=== PATIENT | female | born 1960 | race Caucasian/White ===

== ENCOUNTER 2023-12-26 23:54 | Inpatient (IN) | payer OTHER, SELFPAY ==
[2023-12-26] VITALS (7 sets, daily range): BP systolic 89–142; BP diastolic 11–94; BMI 20.7
--- NOTE | 2023-12-26 16:41 | ED TECH ---
This PCT tried to obtain blood work due to pt pulling away arm while needle was inserted.
No labs obtained in triage.
--- NOTE | 2023-12-26 19:52 | ED.GENMED ---
History of Present Illness
General
Chief Complaint: Alcohol Problem
Source: patient
Exam Limitations: none
Time Seen by Provider: 12/26/23 18:15
Nursing documentation reviewed up to this point in time: agreed with
Travel History
Have you had any contact with someone who has COVID-19?: No
Do you have any symptoms of coronavirus? Fever > 100 degrees, chills, cough, shortness of breath, sore throat, loss of taste or smell, muscle aches, or headache?: No
History of Present Illness
History of Present Illness:
Patient with history of chronic alcoholism, anxiety, and gastroparesis, presents ED secondary to recurrent nausea and vomiting, along with upper abdominal pain. Unfortunately, patient states that her anxiety has been worse recently, causing her to
drink more, which has caused more pain. Denies diarrhea. Denies chest pain/sob. Denies trauma.
Past History
Past History
ED Past Medical History: Asthma, Cancer (Breast cancer, diagnosed September 2013 with lumpectomy), COPD, GERD, HTN, Psychiatric (Anxiety, Depression) and Other (Pneumonia, Immune problem, diverticulosis, gastritis, GI bleed, osteoporosis, anemia,
migraines, osteoporosis, kyphosis, C-diff)
ED Past Surgical History: Gynecological (Breast lumpectomy September 2013), Orthopedic (Left wrist distal radius fracture repair November 2013, Back surgery) and Other (Cataracts, hiatal hernia surgery)
Social History
Tobacco: Former smoker
Alcohol: None
Drug: None
Personal:
Living: with family
Employment: Employed
Family History
Family History: Other (Noncontributory)
Review of Systems
Review of Systems
Allergies reviewed?: Yes
All Other Systems: ROS reviewed and negative except as documented in HPI and ROS
Constitutional: Reports no symptoms; Denies fever
EENT: Reports no symptoms
Respiratory: Reports no symptoms
Cardiac: Reports no symptoms
ABD/GI: Reports abdominal pain, nausea, vomiting and diarrhea
Musculoskeletal: Reports no symptoms
Skin: Reports no symptoms
Neurological: Reports no symptoms
Phy Exam
Physical Exam
Physical Exam:
Physical Exam
General: mild distress, not acutely ill. afebrile.
Head: nc/at. eomi
Neck: supple. no meningeal signs.
Heart: s1/s2 regular rate and rhythm, no murmur. equal radial pulses.
Lungs: no acute respiratory distress. clear bilaterally
Abdomen: normal bowel sounds. no distention. mild epigastric tenderness to palpation. rectal exam (Janet RN, at bedside): brown, heme negative
Neuro: alert and oriented. no focal neurological deficits
Skin: no rash
Psychiatric: well kept. interactive and cooperative
Extremities: no edema. no calf tenderness.
Scores
Withdrawal Assessment of Alcohol
Withdrawal Assessment Completed?: Not applicable
Course
Orders/Labs/Results
Orders:
Orders
12/26/23 16:15
Electrocardiogram (*1) Urgent
Reason for Study: Syncope
EKG- Treatment ONCE
12/26/23 18:16
Add On- LAB Urgent
Tests Added?: magnesium, alcohol level
12/26/23 18:58
0.9% Sodium Chloride 1000 ml [Nss] 1,000 ml IV BOLUS
Lorazepam [Ativan] 1 mg IV NOW STA
Ondansetron Injectable [Zofran] 4 mg IV NOW STA
Pantoprazole [Protonix IV] 40 mg IV NOW STA
12/26/23 20:06
Alcohol Urgent
Basic Metabolic Panel Urgent
Complete Blood Count/With Diff Urgent
Ferritin Urgent
Comment: ADD ON
Lipase Urgent
12/26/23 20:42
Add On- LAB Urgent
Tests Added?: iron, ferritin, tibc
12/26/23 22:02
Iron Routine
Comment: COLLECT. SPECIMEN IN LAB IS HEMOLYZED
Total Iron Binding Routine
12/26/23 23:40
Admit/Transfer Patient As Directed
Co-Sign Provider:
Level of Care: Inpatient admission
Assign to:: Medical/Surgical
Physician / Group: [email or web address]
Diagnosis: acute gastritis, ETOH use disorder
Reason for Hospitalization: acute gastritis, ETOH use disorder
Expected length of stay greater than two midnights?: Yes
ELOS- Estimated Length of Stay in days: 3
I certify the patient meets the requirements for IP care: Yes
12/26/23 23:41
Code Status As Directed
Resuscitation Status: Full Code
12/26/23 23:56
Magnesium Urgent
Potassium Urgent
12/27/23 01:15
0.9% Sodium Chloride 1000 ml [Nss] 1,000 ml IV 100 mls/hr
0.9% Sodium Chloride [Nss (Preservative Free)] See Protocol IV PRN PRN
FOLic ACID [Folvite] 1 mg 0.9% Sodium Chloride 50 ml [Nss] 50 ml IV DAILYPRN
Lorazepam [Ativan] 1 mg IV Q1HPRN PRN
Lorazepam [Ativan] 1 mg PO Q2HPRN PRN
Lorazepam [Ativan] 2 mg IV Q1HPRN PRN
Metoclopramide [Reglan] 10 mg IV Q6HPRN PRN
12/27/23 01:15
Case Management Consult Once
Case Management Consult: Other
Comment: Substance abuse counseling
Activity As Directed
Activity Level: With Assistance
Intake/ Output As Directed
Frequency: Per unit guidelines
MSAS SCORE As Directed
MSAS Score 0-4: Repeat MSAS every 2 hours until 0-4 for three consecutive assessments, then every 4 hours x 48
hours.
MSAS Score 5-7: For MILD withdrawl symptoms. Repeat MSAS and RASS every 2 hours
MSAS Score 8-11: For MODERATE withdrawal symptoms. Repeat MSAS and RASS every 1 hour. Consider ICU or IMU
level of care.
MSAS Score > 11: For SEVERE withdrawal symptoms. Repeat MSAS and RASS every 1 hour. Notify provider, consider
ICU level of care.
MSAS Additional Instructions: If no improvement or no decrease in score from severe to moderate within 12
hours, consult psychiatry
MSAS Notify Provider: Notify provider if patient requires more than 10 mg of Lorazepam in eight hour period.
Pneumatic Compression Sleeves As Directed
Type: Knee high
Vital Signs As Directed
Frequency: Per unit guidelines
DX Deep Vein Thrombosis Video Routine
12/27/23 Breakfast
Clear Liquid
At Your Request: Full Participation
Comment: ADAT
12/27/23 08:00
FOLic ACID [Folvite] 1 mg PO DAILY
Lisinopril [Zestril] 20 mg PO DAILY
Thiamine Injection 200 mg IV Q12
12/27/23 08:40
Basic Metabolic Panel IN AM
Complete Blood Count/No Diff IN AM
12/27/23 09:00
DIETARY CONSULT Routine
Reason for Consult: Nutrition support, possible refeeding guidelines
12/30/23 08:00
Thiamine HCl [Vitamin B1] 100 mg PO BID
Abnormal Lab Results
12/26/23 12/26/23
20:06 22:02
RBC 2.91 L 10^6/uL
(4.20-5.40)
Hgb 9.6 L g/dL
(12.0-16.0)
Hct 27.3 L %
(37.0-47.0)
MCH 33.0 H pg
(27.0-31.0)
RDW 16.4 H %
(11.5-14.5)
Carbon Dioxide 18 L mmol/L
(22-30)
BUN 45 H mg/dl
(7-17)
Creatinine 1.1 H mg/dL
(0.6-1.0)
Glucose 109 H mg/dl
(70-99)
TIBC 182 L ug/dl
(265-497)
12/26/23 20:06
12/26/23 20:06
Vital Signs
Initial and Last Documented VS:
Initial Vital Signs
Temp Pulse Resp BP Pulse Ox
99.1 F 96 18 98/63 96
12/26/23 16:12 12/26/23 16:12 12/26/23 16:12 12/26/23 16:12 12/26/23 16:12
Last Documented Vital Signs
Temp Pulse Resp BP Pulse Ox
98.5 F 72 16 131/84 97
12/27/23 07:10 12/27/23 07:10 12/27/23 07:10 12/27/23 07:10 12/27/23 07:10
MDM/Problems Addressed
MDM/Problems Addressed:
H/H noted, along with elevated BUN/Cr ratio, concerning for likely dehydration from ongoing alcohol use and lack of oral intake. Pt with tremor noted, concerning for potential development of DTs. Pt will be admitted for further evaluation and
treatment.
*Critical Care Note
Total Time (30-74mins, 75-104mins- exclusive of procedures): Not Applicable
ED Attending Note
-
Portions of this chart may have been created with voice recognition software.� Occasional wrong word or��sound alike� substitutions may have occurred due to the inherent limitations of voice recognition software.
Discharge Plan
Departure
Patient Disposition: Admit
Date of Disposition: 12/26/23
Time of Disposition: 23:19
Admit to: Telemetry
Presentation/result/management discussed w/ accepting MD/DO: Hospitalist
Discharge Problem:
Dehydration, Anemia, Gastritis, Alcohol abuse
Interventions
Interventions:
*Risk Screen - Suicide Last Done: 12/26/23 16:12
*General Assessment Last Done: 12/26/23 16:12
*Neglect/Abuse Screening Last Done: 12/26/23 16:12
ED- Fall Risk Assessment Last Done: 12/26/23 18:48
*ED COVID-19 Vaccine History Last Done: 12/26/23 16:12
*Nursing Disposition Last Done: 12/27/23 01:05
ED- Neurological Assessment Last Done: 12/26/23 18:48
ED-Psychological Assessment Last Done: 12/26/23 18:48
Discharge Date and Time
Discharge Date/Time: 12/27/23 01:06
[2023-12-26] MEDS: NSS 1000 IV (20:09)
[2023-12-26] MEDS: PROTONIX IV 40 MG IV (20:09)
[2023-12-26] MEDS: ZOFRAN 4 MG IV (20:09)
[2023-12-26] MEDS: ATIVAN 1 MG IV (20:09)
[2023-12-26 20:10] LABS: % Basophils 1.2 % (0-2); % Eosinophils 2.3 % (0-6); % Immature Granulocytes 0.2 % (0-0.5); % Lymphocytes 33.1 % (20.5-51.1); % Monocytes 6.4 % (1.7-9.3); % Neutrophils 56.8 % (42.2-75.2); Absolute Basophils 0.1 10^3/uL (0-0.2); Absolute Eosinophils 0.2 10^3/uL (0-0.7); Absolute Lymphocytes 2.2 10^3/uL (1.2-3.4); Absolute Monocytes 0.4 10^3/uL (0.1-0.6); Absolute Neutrophils 3.8 10^3/uL (1.4-6.5); Hematocrit 27.3 % (37.0-47.0); Hemoglobin 9.6 g/dL (12.0-16.0); Mean Corp Hgb Conc. 35.2 g/dL (33.0-37.0); Mean Corpuscular Volume 93.8 fL (81.0-99.0); Mean Platelet Volume 9.6 fL (7.4-10.4); Nucleated Red Blood Cells % 0 %; Platelet Count 220 10^3/uL (130-400); Red Blood Cell Count 2.91 10^6/uL (4.20-5.40); Red Cell Dist. Width 16.4 % (11.5-14.5); White Blood Cell Count 6.6 10^3/uL (4.8-10.8)
[2023-12-26 20:29] LABS: Blood Urea Nitrogen 45 mg/dl (7-17); Calcium 9.3 mg/dl (8.4-10.2); Carbon Dioxide 18 mmol/L (22-30); Chloride 107 mmol/L (98-107); Estimated Creatinine Clearance 50 ml/min; Glucose 109 mg/dl (70-99); Sodium 138 mmol/L (135-145); eGFR 56.46
[2023-12-26 20:35] LABS: Lipase 126 U/L (23-300)
[2023-12-26 20:36] LABS: Alcohol None Detected
[2023-12-26 22:20] LABS: Iron 73 ug/dl (37-170)
[2023-12-26 22:30] LABS: Percent Saturation 40 % (20-50); Total Iron Binding Capacity 182 ug/dl (265-497)
--- NOTE | 2023-12-26 23:35 | HPS.HSE ---
Family Physician
-
Family Physician: James Neal
Chief Complaint
-
N & V
History of Present Illness
63F H ETOH use disorder, gastroparesis, anxiety evalauation at ER for recurrent nausea and vomiting, along with upper abdominal pain. Unfortunately, patient states that her anxiety has been worse recently, causing her to drink more, which has
caused more pain.
ROS
Denies diarrhea. Denies chest pain/sob. Denies trauma.
Medical History
Past Medical History
Past Medical History: Reports Other
Additional Past Medical History:
Asthma, Cancer (Breast cancer, diagnosed September 2013 with lumpectomy), COPD, GERD, HTN, Psychiatric (Anxiety, Depression) and Other (Pneumonia, Immune problem, diverticulosis, gastritis, GI bleed, osteoporosis, anemia, migraines, osteoporosis,
kyphosis, C-diff)
Past Surgical History: Reports Other
Additional Past Surgical History:
Gynecological (Breast lumpectomy September 2013), Orthopedic (Left wrist distal radius fracture repair November 2013, Back surgery) and Other (Cataracts, hiatal hernia surgery)
Social History
Tobacco: Former Smoker
Alcohol: Daily
Drug: None
Family History
Family History: Not pertinent
Allergies / Home Medications
Allergies reflects when Allergies were last updated in [employer].
Home Medications with original date entered in [employer]
Allergy/Medication List:
Allergies
Allergy/AdvReac Type Severity Reaction Status Date / Time
No Known Allergies Allergy Verified 06/11/23 09:08
Home Medications
escitalopram oxalate 20 mg tablet 20 mg PO DAILY Depression 09/30/18
immun glob G 10 gram/50 mL(20 %)-pro-IgA 0-50 mcg/mL subcutaneous soln (Hizentra) 10 gm SC SA common variable immunodeficiency 09/30/18
omeprazole 20 mg capsule,delayed release 20 mg PO BID #60 caps 06/25/22
cholecalciferol (vitamin D3) 50 mcg (2,000 unit) tablet 2,000 units PO DAILY #30 tabs 03/27/23
metoclopramide HCl 10 mg tablet 10 mg PO ACHS #120 tabs 03/27/23
albuterol sulfate 90 mcg/actuation aerosol inhaler (Proventil HFA) 1 puff inhalation R Q4HPRN PRN sob/wheezing 05/17/23
ondansetron 4 mg disintegrating tablet 4 mg PO Q8HPRN PRN nausea/vomiting 05/17/23
acetaminophen 325 mg tablet (Tylenol) 650 mg PO Q4HPRN PRN mild pain 06/11/23
therapeutic multivitamin 1 tab PO DAILY Supplement 06/11/23
lisinopril 20 mg tablet 20 mg PO DAILY #30 tabs 06/14/23
mirtazapine 15 mg disintegrating tablet 15 mg PO HS #30 tabs 06/14/23
trazodone 100 mg tablet 100 mg PO HS #30 tabs 06/14/23
Review of Systems
-
Constitutional: Reports No Symptoms
EENT: Reports No Symptoms
Respiratory: Reports No Symptoms
Cardiac: Reports No Symptoms
Abdomen/GI: Reports See HPI
: Reports No Symptoms
Musculoskeletal: Reports No Symptoms
Skin: Reports No Symptoms
Neurological: Reports No Symptoms
Endocrine: Reports No Symptoms
Hematologic/Lymphatic: Reports No Symptoms
Psych: Reports No Symptoms
Physical Exam
Vital Signs
Vital Signs
Temp Pulse Resp BP Pulse Ox
99.1 F 79 12 120/78 96
12/26/23 16:12 12/26/23 23:00 12/26/23 23:00 12/26/23 23:00 12/26/23 22:45
Physical Exam
General: Other (see below )
Laboratory Results
-
12/26/23 20:06
Laboratory Results
Total Bilirubin Cancelled 12/26/23 20:06
AST Cancelled 12/26/23 20:06
ALT Cancelled 12/26/23 20:06
Alkaline Phosphatase Cancelled 12/26/23 20:06
Lipase 126 U/L (23-300) 12/26/23 20:06
Data Reviewed
-
Lab Data: Labs Reviewed by me
Old Records: Reviewed
Impression/Plan
-
Reviewed VS: T 99.1 HR 80 BP 120/80
PE
Gen: mild distress
HEENT: anicteric
Neck: supple
Lungs: CTA
Cor: S1 S2 , RRR , no mumur
Abdomen: soft abdomen , benign
STENOTYPE OPERATOR: AAO3 NFND
MS: no edema
Psych: Normal mood and affect.
Data
Hgb 9.6- baseline 12-13
Na 138
K - hemolyzed
CO2 18
BUN 45
Cr 1.1
EKG
SINUS RHYTHM WITH SHORT ME
NONSPECIFIC ST ABNORMALITY
ABNORMAL ECG
WHEN COMPARED WITH ECG OF 11-JUN-2023 09:44,
ME INTERVAL HAS DECREASED
Confirmed by PHILL JHA, MAICO ([id number]) on 12/26/2023 4:37:43 PM
Last hospitalist admission: 06/11/23 - 06/14/23
P DXS: Intractable nausea and vomiting
S DXs: Essential hypertension
ASSESSMENT & PLAN
Intractable N/V DDX: ETOH asso. gastritis, Gastroparesis flare of uncertain etiolgy
HX hiatal hernia
Prior extensive evaluations in the health record by GI again and also by surgery.
- Supported with IVFs, Reglan
- cont Reglan
- cont IV PPI
ETOH use disorder
Recently 1 measure ( ? ) of Vodka daily for last 2weeks
- MSAS protocol
HX Anxiety
- on Remeron
Essential HTN:
- cont. Lisinopril
DVT Px: LMWH
Code: Full code
IP MS
[2023-12-27] VITALS: BP 114/78
[2023-12-27 00:25] LABS: Potassium 3.9 mmol/L (3.5-5.1)
[2023-12-27 01:08] VITALS: BMI 19.7
[2023-12-27 01:14] VITALS: BP 132/84
[2023-12-27] MEDS: NSS 1000 IV ×2 (02:05→14:11)
[2023-12-27] MEDS: ATIVAN 1 MG IV (02:41)
[2023-12-27] MEDS: NSS (PRESERVATIVE FREE) 0.5 ML IV (02:42)
[2023-12-27] MEDS: REGLAN 10 MG IV ×2 (03:19→11:01)
--- NOTE | 2023-12-27 05:10 | PTCARENOTE ---
Patient admitted to room 408-1, ambulatory from stretcher to bed, gait steady. Patient awake and alert, oriented x3. Complains of upper middle abdominal pain of a '4'. Patient on MSAS scoring a '1'. It is to late at this time for patients night
time meds, she asked for a dose of ativan, said it really helped her feel less anxious when she was given it in the ED. SKIMMER SCOOP OPERATOR notified and ordered one dose of ativan 1mg IV. Patient instructed to ring prior to ambulating, she verbalized understanding.
[2023-12-27 07:10] VITALS: BP 131/84
[2023-12-27] MEDS: ZESTRIL 20 MG PO (09:01)
[2023-12-27] MEDS: THIAMINE INJECTION 200 MG IV ×2 (09:02→20:48)
[2023-12-27] MEDS: FOLVITE 1 MG PO (09:02)
[2023-12-27] MEDS: PROTONIX 20 MG PO (09:02)
[2023-12-27] MEDS: PROZAC 30 MG PO (09:02)
[2023-12-27 09:30] LABS: Hematocrit 28.6 % (37.0-47.0); Hemoglobin 9.5 g/dL (12.0-16.0); Mean Corp Hgb Conc. 33.2 g/dL (33.0-37.0); Mean Corpuscular Hgb 31.8 pg (27.0-31.0); Mean Corpuscular Volume 95.7 fL (81.0-99.0); Mean Platelet Volume 9.8 fL (7.4-10.4); Platelet Count 206 10^3/uL (130-400); Red Blood Cell Count 2.99 10^6/uL (4.20-5.40); White Blood Cell Count 4.9 10^3/uL (4.8-10.8)
[2023-12-27 09:57] LABS: Blood Urea Nitrogen 35 mg/dl (7-17); Calcium 8.8 mg/dl (8.4-10.2); Carbon Dioxide 24 mmol/L (22-30); Chloride 110 mmol/L (98-107); Estimated Creatinine Clearance 65 ml/min; Glucose 93 mg/dl (70-99); Potassium 4.3 mmol/L (3.5-5.1); Sodium 136 mmol/L (135-145); eGFR > 60.00
[2023-12-27 10:41] LABS: Hepatitis C Antibody Negative (Negative)
[2023-12-27] MEDS: TYLENOL 650 MG PO (11:03)
[2023-12-27 15:00] VITALS: BMI 19.7
--- NOTE | 2023-12-27 15:04 | W.PN.HOSP.TC ---
Today's Communication/Plan
-
Protonix IV twice a day
Continue with antiemetics
Continue with IV fluids
Advance diet as able.
Assessment / Plan
Assessment / Plan
Intractable nausea vomiting-patient also has associated abdominal pain-patient known to have gastroparesis which was managed well with the twice a day Zofran. The last 2 weeks things have changed as her food habits change and also she has been
taking alcohol every day. She is also taking care of her sick mother.
Suspect probably alcohol related and either gastritis or erosions. Doubt gastro harasses flareup.
Lipase normal. White count normal. Abdomen soft. Elevated BUN noted.
Symptomatic treatment with IV Protonix twice a day, antiemetics and IV fluids and follow.
HX� hiatal hernia
Prior extensive evaluations in the health record by GI again� and also by surgery.
- Supported with IVFs, - cont IV PPI
ETOH use disorder
Recently 1 measure ( ? )� of Vodka daily for last 2weeks
- MSAS protocol
HX Anxiety
- on Remeron
Essential HTN:
- cont.� Lisinopril
DVT Px: LMWH
Code: Full code
IP MS
Anticipated Discharge: 24 - 48 hours
Subjective/Interval History
-
Date of Service: December 27, 2023
Patient with history of gastroparesis which was managed with Zofran twice a day. She does not take Reglan anymore because of the side effect concern. In the last couple of weeks things have changed with regards to nausea. She was able to tolerate
diet without vomiting. She had also abdominal discomfort in epigastric area. She thinks it is because the food habit changes and also use of alcohol. She has been taking care for her sick mom in the last few weeks. She is taking 2 drinks a day
which is not usual for her. No major changes with stool habits.
Objective Data
-
Labs:
Laboratory Results
12/27/23
08:40
WBC 4.9
Hgb 9.5 L
Hct 28.6 L
Plt Count 206
Sodium 136
Potassium 4.3
Chloride 110 H
Carbon Dioxide 24
BUN 35 H
Creatinine 0.8
Glucose 93
Calcium 8.8
Vital Signs:
Vital Signs
Temp Pulse Resp BP Pulse Ox
98.5 F 72 16 131/84 97
12/27/23 07:10 12/27/23 07:10 12/27/23 07:10 12/27/23 07:10 12/27/23 07:10
I&O
12/26/23 12/27/23 12/28/23
06:59 06:59 06:59
Intake Total 500 / 500
Balance 500 / 500
Review of Systems
-
Constitutional: Denies Fever
Respiratory: Denies Trouble Breathing
Cardiac: Denies Chest Pain
Neuro: Denies Dizzy
Physical Exam
-
General: No Apparent Distress
HEENT: Moist Mucous Membranes
Respiratory: Clear to Auscultation
Cardiac: Regular Rhythm and S1/S2
GI: Soft, Nontender, Nondistended and Normal Bowel Sounds
Neuro: AO x 3
Data Reviewed
-
Labs: Labs Reviewed by me
[2023-12-27 15:05] VITALS: BP 119/84
[2023-12-27] MEDS: NSS (PRESERVATIVE FREE) 10 ML IV (20:45)
[2023-12-27] MEDS: PROTONIX IV 40 MG IV (20:45)
[2023-12-27] MEDS: REMERON ODT 45 MG PO (21:03)
[2023-12-27] MEDS: DESYREL 100 MG PO (21:04)
[2023-12-27 23:29] VITALS: BP 163/74
[2023-12-27 23:40] VITALS: BP 149/82
[2023-12-28] MEDS: NSS 1000 IV ×2 (00:20→08:33)
[2023-12-28 08:00] VITALS: BP 162/81
[2023-12-28] MEDS: PROZAC 30 MG PO (08:33)
[2023-12-28] MEDS: PROTONIX IV 40 MG IV (08:34)
[2023-12-28] MEDS: THIAMINE INJECTION 200 MG IV (08:34)
[2023-12-28] MEDS: ZESTRIL 20 MG PO (08:34)
[2023-12-28] MEDS: NSS (PRESERVATIVE FREE) 10 ML IV (08:34)
[2023-12-28] MEDS: FOLVITE 1 MG PO (08:35)
[2023-12-28] MEDS: ZOFRAN 4 MG IV (08:39)
[2023-12-28 09:08] LABS: ALT (SGPT) 13 U/L (0-35); AST (SGOT) 28 U/L (14-36); Albumin 2.8 g/dl (3.5-5.0); Alkaline Phosphatase 88 U/L (38-126); Blood Urea Nitrogen 19 mg/dl (7-17); Calcium 9.2 mg/dl (8.4-10.2); Carbon Dioxide 18 mmol/L (22-30); Chloride 111 mmol/L (98-107); Estimated Creatinine Clearance 86 ml/min; Glucose 95 mg/dl (70-99); Potassium 4.2 mmol/L (3.5-5.1); Sodium 137 mmol/L (135-145); Total Bilirubin 0.7 mg/dl (0.2-1.3); Total Protein 5.1 g/dl (6.3-8.2); eGFR > 60.00
--- NOTE | 2023-12-28 09:25 | W.PN.HOSP.TC ---
Today's Communication/Plan
-
DC
Assessment / Plan
Assessment / Plan
Intractable nausea vomiting-patient also has associated abdominal pain-patient known to have gastroparesis which was managed well with the twice a day Zofran. The last 2 weeks things have changed as her food habits change and also she has been
taking alcohol every day. She is also taking care of her sick mother.
Suspect probably alcohol related and either gastritis or erosions. Doubt gastro harasses flareup.
Lipase normal. White count normal. Abdomen soft. Elevated BUN noted.
Improved general feeling. Improved GI symptoms. Improved BUN. Tolerating full liquids diet.
Advance diet to regular and if she tolerates will DC home.
Advised to stay away from alcohol abuse and cw her PPI.
HX� hiatal hernia
Prior extensive evaluations in the health record by GI again� and also by surgery.
ETOH use disorder
Recently 1 measure ( ? )� of Vodka daily for last 2weeks
No QUIQUE noted
HX Anxiety
- on Remeron
Essential HTN:
- cont.� Lisinopril
DC home if she tolerates diet
Anticipated Discharge: Today
Subjective/Interval History
-
Date of Service: December 28, 2023
Tolerating full liquid diet.
But nauseous which is usual for her in the morning. She took Zofran. She has gastroparesis and takes Zofran twice a day.
No vomiting.
Improved abdominal pain.
No fever chills.
No shortness of breath.
Still likes to go home
Objective Data
-
Labs:
Laboratory Results
12/28/23
08:15
Sodium 137
Potassium 4.2
Chloride 111 H
Carbon Dioxide 18 L
BUN 19 H
Creatinine 0.6
Glucose 95
Calcium 9.2
Total Bilirubin 0.7
AST 28
ALT 13
Alkaline Phosphatase 88
Vital Signs:
Vital Signs
Temp Pulse Resp BP Pulse Ox
97.8 F 88 16 162/81 96
12/28/23 08:00 12/28/23 08:34 12/28/23 08:00 12/28/23 08:34 12/28/23 08:00
I&O
12/27/23 12/28/23 12/29/23
06:59 06:59 06:59
Intake Total 500 / 500 1020 / 1020
Balance 500 / 500 1020 / 1020
Review of Systems
-
EENT: Denies Sore Throat
Respiratory: Denies Cough or Trouble Breathing
Cardiac: Denies Chest Pain
Neuro: Denies Dizzy
Physical Exam
-
General: No Apparent Distress
HEENT: Moist Mucous Membranes
Respiratory: Clear to Auscultation
Cardiac: Regular Rhythm and S1/S2
GI: Soft, Nontender, Nondistended and Normal Bowel Sounds
Neuro: AO x 3
Psych: Calm
Data Reviewed
-
Labs: Labs Reviewed by me
--- NOTE | 2023-12-28 09:33 | W.DS.TRANS ---
DC Summary - Service Desk Director
-
Discharge Instructions:
Discharge Diagnosis/Procedures Intractable nausea and abdominal pain suspected
alcohol related gastritis; HX of gastroparesis
Diet Regular
Activity As tolerated
Driving Restrictions As prior to admission
Instructions:
Stand-Alone Forms:
Changes to Home Medications: Yes
Discharge Medications:
DC Medications w/original date entered in [employer]
immun glob G 10 gram/50 mL(20 %)-pro-IgA 0-50 mcg/mL subcutaneous soln (Hizentra) 10 gm SC TU common variable immunodeficiency 09/30/18
albuterol sulfate 90 mcg/actuation aerosol inhaler (Proventil HFA) 1 puff inhalation R Q4HPRN PRN sob/wheezing 05/17/23
ondansetron 4 mg disintegrating tablet 4 mg PO BID Gastrointestinal Issue 05/17/23
acetaminophen 325 mg tablet (Tylenol) 650 mg PO Q4HPRN PRN mild pain 06/11/23
therapeutic multivitamin 1 tab PO DAILY Supplement 06/11/23
lisinopril 20 mg tablet 20 mg PO DAILY #30 tabs 06/14/23
trazodone 100 mg tablet 100 mg PO HS #30 tabs 06/14/23
cholecalciferol (vitamin D3) 50 mcg (2,000 unit) tablet 2,000 units PO DAILY Supplement 12/27/23
fluoxetine 10 mg capsule (Prozac) 30 mg PO DAILY Mental Health/Anxiety 12/27/23
mirtazapine 15 mg disintegrating tablet 45 mg PO HS Mental Health/Anxiety 12/27/23
omeprazole 20 mg capsule,delayed release 20 mg PO BID Gastrointestinal Issue 12/27/23
folic acid 1 mg tablet 1 mg PO DAILY #30 tabs 12/28/23
thiamine HCl (vitamin B1) 100 mg tablet 100 mg PO DAILY #30 tabs 12/28/23
Home Medication Changes
New med - thiamine,folic acid
Pending Results: No
--- NOTE | 2023-12-28 09:33 | W.DCSUMMARY ---
Discharge Summary
Discharge Data
Date of Admission: 12/26/23
Date of Discharge: 12/28/23
-
Pending Results: No
Hospital Course
Primary diagnosis:
Intractable nausea, vomiting and abdominal pain suspected alcohol related gastritis
History of gastroparesis
Secondary diagnosis:
Hiatus hernia
Anxiety disorder
Essential hypertension
Hospital course:
Patient with history of gastroparesis, hiatus hernia and alcohol use disorder presented with recurrent nausea vomiting along with upper abdominal pain.
She has history of gastroparesis which is managed taking Zofran twice a day. She had issues with Reglan due to side effects in the past apparently.
Recently she has stresses, taking care of her sick mother so she started to drink more on a daily basis .
On presentation her white count was normal, lipase was normal,LFT normal ,and abdomen was soft ;she had elevated BUN indicating dehydration.
She was initiated on IV fluids, antiemetics and Protonix IV twice a day. With symptomatic treatment alone she got better.
she was tolerating diet prior to dsicharge home. She was advised strongly to abstain from alcohol and use the Prilosec twice a day which she normally does.
Clinical presentation did not sound like gastroparesis flareup. There was no evidence of alcohol withdrawal syndrome during the stay here.
Discharge Plan
-
Patient Disposition: Home (Routine Discharge)
Discharge Diagnosis/Procedures: Intractable nausea and abdominal pain suspected alcohol related gastritis; HX of gastroparesis
Diet: Regular
Activity: As tolerated
Driving Restrictions: As prior to admission
Referrals:
James Neal MD [Family Provider] - in less than 1 week
Prescriptions:
New
folic acid 1 mg Tablet
1 mg PO DAILY Qty: 30 0RF
Rx Instructions:
for a month
thiamine HCl (vitamin B1) 100 mg Tablet
100 mg PO DAILY Qty: 30 0RF
Rx Instructions:
for a month
Continued
Hizentra 10 GM/50 ML solution
10 gm SC
Rx Instructions:
SQ weekly immune deficiency Tuesday
albuterol sulfate [Proventil HFA] 90 MCG/PUFF HFA aerosol inhaler
1 puff inhalation R Q4HPRN PRN (Reason: sob/wheezing)
Patient Comments:
only taken as needed
Rx Instructions:
Use as 'rescue therapy' if away from home, in place of [facility]one[facility].
ondansetron 4 mg tablet,disintegrating
4 mg PO BID
acetaminophen [Tylenol] 325 mg Tablet
650 mg PO Q4HPRN PRN (Reason: mild pain)
therapeutic multivitamin Tablet
1 tab PO DAILY
lisinopril 20 mg tablet
20 mg PO DAILY Qty: 30 0RF
trazodone 100 mg Tablet
100 mg PO HS Qty: 30 0RF
fluoxetine [Prozac] 10 mg Capsule
30 mg PO DAILY
mirtazapine 15 mg tablet,disintegrating
45 mg PO HS
omeprazole 20 mg capsule,delayed release(DR/EC)
20 mg PO BID
cholecalciferol (vitamin D3) 50 mcg (2,000 unit) tablet
2,000 units PO DAILY
Discharge Orders:
Discharge Patient (As Directed); Ordered 12/28/23
Ordered By: Manolo Turner
--- NOTE | 2023-12-28 09:50 | CM ---
CM following re: d/c planning
Chart reviewed
CM met with the patient at bedside yesterday, IA completed
Pt states that she and her spouse reside in a 1 story ranc[place] with no JIMENA
FIELD AUDITOR patient reports independence at baseline
Pt has no previous SNF/VN/DME hx
Pt does confirm prescription coverage and rx's are filled at [facility] on [facility]
Pt PCP-Dr. James Neal
CM addressed consult to address ETOH abuse and the patient denied having a problem and declined any resources on the subject
Pt is medically stable and has no skilled PT/OT needs
IMM reviewed and copy provided
PLAN; d/c home no needs
--- NOTE | 2023-12-28 14:20 | PTCARENOTE ---
Rn flow knockout man- [place] [facility] [place] Patient showed to a recliner and patient offered snacks. Patient states that her with pick her up after work at 1700. Patient pleasant and watching tv.
== END 2023-12-28 14:49 | disposition home or self-care (01) | DRG 392 ==
LOC: 4 EAST ACU 23:54
PROVIDERS: Emergency Medicine; ADMITTING PHYSICIAN Internal Medicine; ATTENDING PHYSICIAN Internal Medicine; EMERGENCY PHYSICIAN Emergency Medicine; FAMILY PHYSICIAN Internal Medicine
DX: K29.00 Acute gastritis without bleeding (principal); F41.9 Anxiety disorder, unspecified; K31.84 Gastroparesis; F10.10 Alcohol abuse, uncomplicated; Z87.891 Personal history of nicotine dependence; I10 Essential (primary) hypertension; K44.9 Diaphragmatic hernia without obstruction or gangrene
CPT/HCPCS: 80048; 80053; 82077; 82728; 83540; 83550; 83690; 83735; 84132; 85025; 85027; 86803; 93005; 96361; 96374; 96375; 99285

== ENCOUNTER → 2024-04-20 14:10 | Outpatient (REF) | payer OTHER, SELFPAY | LOC: WDC 14:10 | PROVIDERS: ATTENDING PHYSICIAN Nurse Practitioner | DX: Z12.31 Encounter for screening mammogram for malignant neoplasm of breast (principal) | CPT/HCPCS: 77063; 77067 ==

== ENCOUNTER 2024-08-12 14:34 | Observation (INO) | payer OTHER, SELFPAY ==
[2024-08-12 08:20] VITALS: BP 143/89
[2024-08-12] MEDS: ZOFRAN 4 MG IV ×2 (09:07→13:01)
[2024-08-12] MEDS: PROTONIX IV 40 MG IV (09:07)
[2024-08-12 09:18] LABS: % Basophils 0.8 % (0-2); % Eosinophils 0.4 % (0-6); % Lymphocytes 15.3 % (20.5-51.1); % Monocytes 3.7 % (1.7-9.3); % Neutrophils 79.8 % (42.2-75.2); Absolute Lymphocytes 0.7 10^3/uL (1.2-3.4); Absolute Monocytes 0.2 10^3/uL (0.1-0.6); Absolute Neutrophils 3.9 10^3/uL (1.4-6.5); Hematocrit 31.3 % (37.0-47.0); Hemoglobin 10.5 g/dL (12.0-16.0); Mean Corp Hgb Conc. 33.5 g/dL (33.0-37.0); Mean Corpuscular Hgb 30.7 pg (27.0-31.0); Mean Corpuscular Volume 91.5 fL (81.0-99.0); Mean Platelet Volume 10.3 fL (7.4-10.4); Nucleated Red Blood Cells % 0 %; Platelet Count 202 10^3/uL (130-400); Red Blood Cell Count 3.42 10^6/uL (4.20-5.40); Red Cell Dist. Width 13.3 % (11.5-14.5); White Blood Cell Count 4.8 10^3/uL (4.8-10.8)
--- NOTE | 2024-08-12 09:32 | ED.GENMED ---
History of Present Illness
<Nan Alejandra PA-C - Last Filed: 08/12/24 16:00>
General
Chief Complaint: Abdominal Symptoms
Source: patient
Exam Limitations: none
Time Seen by Provider: 08/12/24 08:24
Nursing documentation reviewed up to this point in time: agreed with
History of Present Illness
History of Present Illness:
pt is a 64 y/o F
h/o prior alcohol abuse, sober 6 mo
gastroparesis
paraesophageal hernia (previosu hiatal hernia repair with recurrnece)
gastritis
here with n/v sine midnight
says she vomited TNTC but none had blood
now just dry heaves
tried zofran 1 espino but vmoited it up
having some epigastric pain
some chillls no fever
no diarhea
no balck stool
is scheduled to see dr. cruz regarding the hernia
Past History
<GURDEEP Felix Last Filed: 08/12/24 16:00>
Past History
ED Past Medical History: Asthma, Cancer (Breast cancer, diagnosed September 2013 with lumpectomy), COPD, GERD, HTN, Psychiatric (Anxiety, Depression) and Other (Pneumonia, Immune problem, diverticulosis, gastritis, GI bleed, osteoporosis, anemia,
migraines, osteoporosis, kyphosis, C-diff)
ED Past Surgical History: Gynecological (Breast lumpectomy September 2013), Orthopedic (Left wrist distal radius fracture repair November 2013, Back surgery) and Other (Cataracts, hiatal hernia surgery)
Social History
Tobacco: Former smoker
Alcohol: None
Drug: None
Personal:
Living: with family
Employment: Employed
Family History
Family History: Other (Noncontributory)
Review of Systems
<Nan Alejandra PA-C - Last Filed: 08/12/24 16:00>
Review of Systems
Allergies reviewed?: Yes
All Other Systems: Not applicable
Phy Exam
<Nan Alejandra PA-C - Last Filed: 08/12/24 16:00>
Physical Exam
Physical Exam:
GENERAL: Alert , in no apparent distress
EYE: pupils equal and reactive
NECK: Supple
ENT: o/p clr, slightly dry mouth
CARDIAC: Regular rate and rhythm .
LUNGS: Clear breath sounds bilaterally, no acute respiratory distress, no wheezes/rales/rhonchi
ABDOMEN: Soft, nondistended, slightly epigastric tenderness, no r/g, no cvat, normal bowel sounds
NEUROLOGICAL: Alert and oriented, no focal neuro deficits
SKIN: Warm and dry, skin intact.
MUSCULOSKELETAL: No edema, well perfused. neg kelly's sign
PSYCH: Normal and appropriate interaction.
Course
<Nan Alejandra PA-C - Last Filed: 08/12/24 16:00>
Orders/Labs/Results
Orders:
Orders
08/12/24 08:25
Electrocardiogram (*1) Urgent
Reason for Study: Abdominal Pain
EKG- Treatment ONCE
08/12/24 08:42
Ondansetron Injectable [Zofran] 4 mg IV NOW STA
Pantoprazole [Protonix IV] 40 mg IV NOW STA
08/12/24 09:01
Complete Blood Count/With Diff Urgent
08/12/24 09:47
Abdominal Series [CR Obstruct Series W/pa Chest] Urgent
Comment:
Reason For Exam: n/v, abd pain
08/12/24 11:26
Comprehensive Metabolic Panel Urgent
Lipase Urgent
08/12/24 11:44
CT Abd/Pel (IV only)-DH only Urgent
Comment:
Reason For Exam: gastroparesis, vomiting, eval SBO
08/12/24 12:55
Ondansetron Injectable [Zofran] 4 mg IV NOW STA
08/12/24 14:00
0.9% Sodium Chloride 1000 ml [Nss] 1,000 ml IV 100 mls/hr
08/12/24 14:08
Calcium 300mg(Ca. Carb. 750mg) [Tums Ex (Extra Strength) Chewable Tablet] 300 mg PO NOW STA
Calcium 300mg(Ca. Carb. 750mg) [Tums Ex (Extra Strength) Chewable Tablet] 300 mg PO Q6HPRN PRN
Metoclopramide [Reglan] 10 mg IV Q6HPRN PRN
08/12/24 14:17
Admit/Transfer Patient As Directed
Co-Sign Provider:
Level of Care: Observation services
Assign to:: Medical/Surgical
Physician / Group: kingston mckenzie
Diagnosis: gastroenteritis 2/2 to gastroparesis, anemia macrocytic
Reason for Hospitalization: gastroenteritis 2/2 to gastroparesis, anemia macrocytic
Code Status As Directed
Resuscitation Status: Full Code
08/12/24 14:20
PRN Pain Medication Management As Directed
May give lesser potent ordered pain med per pt: Yes
preference::
Protocol:: Medication orders for pain may be administered in a
manner that supports deferring to patient preference
when the pt is:
- Requesting an ordered lesser potent pain medication.
Least to most potent pain medications are defined
as: acetaminophen < NSAID < tramadol < opioids
(morphine, oxycodone, hydromorphone).
- Requesting a lesser dose of the same medication IF
ORDERED.
- Requesting a less intrusive route of administration
if both routes are prescribed by the provider (PO <
IV).
Abnormal Lab Results
08/12/24 08/12/24
09:01 11:26
RBC 3.42 L 10^6/uL
(4.20-5.40)
Hgb 10.5 L g/dL
(12.0-16.0)
Hct 31.3 L %
(37.0-47.0)
Absolute Lymphs (auto) 0.7 L 10^3/uL
(1.2-3.4)
Neutrophils % 79.8 H %
(42.2-75.2)
Lymphocytes % 15.3 L %
(20.5-51.1)
Carbon Dioxide 19 L mmol/L
(22-30)
BUN 35 H mg/dl
(7-17)
Glucose 121 H mg/dl
(70-99)
08/12/24 09:01
08/12/24 11:26
Vital Signs
Initial and Last Documented VS:
Initial Vital Signs
Temp Pulse Resp BP Pulse Ox
99.6 F 80 16 143/89 98
08/12/24 08:20 08/12/24 08:20 08/12/24 08:20 08/12/24 08:20 08/12/24 08:20
Last Documented Vital Signs
Temp Pulse Resp BP Pulse Ox
99.7 F 74 16 134/79 91
08/12/24 13:55 08/12/24 13:55 08/12/24 12:00 08/12/24 13:55 08/12/24 13:55
<Ismael Neumann, DO - Last Filed: 08/12/24 12:17>
Orders/Labs/Results
Orders:
Orders
08/12/24 08:25
Electrocardiogram (*1) Urgent
Reason for Study: Abdominal Pain
EKG- Treatment ONCE
08/12/24 08:42
Ondansetron Injectable [Zofran] 4 mg IV NOW STA
Pantoprazole [Protonix IV] 40 mg IV NOW STA
08/12/24 09:01
Complete Blood Count/With Diff Urgent
08/12/24 09:47
Abdominal Series [CR Obstruct Series W/pa Chest] Urgent
Comment:
Reason For Exam: n/v, abd pain
08/12/24 11:26
Comprehensive Metabolic Panel Urgent
Lipase Urgent
08/12/24 11:44
CT Abd/Pel (IV only)-[facility] only Urgent
Comment:
Reason For Exam: gastroparesis, vomiting, eval SBO
08/12/24 12:55
Ondansetron Injectable [Zofran] 4 mg IV NOW STA
08/12/24 14:00
0.9% Sodium Chloride 1000 ml [Nss] 1,000 ml IV 100 mls/hr
08/12/24 14:08
Calcium 300mg(Ca. Carb. 750mg) [Tums Ex (Extra Strength) Chewable Tablet] 300 mg PO NOW STA
Calcium 300mg(Ca. Carb. 750mg) [Tums Ex (Extra Strength) Chewable Tablet] 300 mg PO Q6HPRN PRN
Metoclopramide [Reglan] 10 mg IV Q6HPRN PRN
08/12/24 14:17
Admit/Transfer Patient As Directed
Co-Sign Provider:
Level of Care: Observation services
Assign to:: Medical/Surgical
Physician / Group: kingston mckenzie
Diagnosis: gastroenteritis 2/2 to gastroparesis, anemia macrocytic
Reason for Hospitalization: gastroenteritis 2/2 to gastroparesis, anemia macrocytic
Code Status As Directed
Resuscitation Status: Full Code
08/12/24 14:20
PRN Pain Medication Management As Directed
May give lesser potent ordered pain med per pt: Yes
preference::
Protocol:: Medication orders for pain may be administered in a
manner that supports deferring to patient preference
when the pt is:
- Requesting an ordered lesser potent pain medication.
Least to most potent pain medications are defined
as: acetaminophen < NSAID < tramadol < opioids
(morphine, oxycodone, hydromorphone).
- Requesting a lesser dose of the same medication IF
ORDERED.
- Requesting a less intrusive route of administration
if both routes are prescribed by the provider (PO <
IV).
Abnormal Lab Results
08/12/24 08/12/24
09: 11:26
RBC 3.42 L 10^6/uL
(4.20-5.40)
Hgb 10.5 L g/dL
(12.0-16.0)
Hct 31.3 L %
(37.0-47.0)
Absolute Lymphs (auto) 0.7 L 10^3/uL
(1.2-3.4)
Neutrophils % 79.8 H %
(42.2-75.2)
Lymphocytes % 15.3 L %
(20.5-51.1)
Carbon Dioxide 19 L mmol/L
(22-30)
BUN 35 H mg/dl
(7-17)
Glucose 121 H mg/dl
(70-99)
08/12/24 09:01
08/12/24 11:26
Vital Signs
Initial and Last Documented VS:
Initial Vital Signs
Temp Pulse Resp BP Pulse Ox
99.6 F 80 16 143/89 98
08/12/24 08:20 08/12/24 08:20 08/12/24 08:20 08/12/24 08:20 08/12/24 08:20
Last Documented Vital Signs
Temp Pulse Resp BP Pulse Ox
99.7 F 74 16 134/79 91
08/12/24 13:55 08/12/24 13:55 08/12/24 12:00 08/12/24 13:55 08/12/24 13:55
Procedures
<Ismael Neumann DO - Last Filed: 08/12/24 12:17>
IV Access
Indication: Emergent access required and Physician skill needed
Performed by:: Ismael Neumann DO
Site:: left arm
Gauge:: 20
Ultrasound Guidance: Yes
<Nan Alejandra PA-C - Last Filed: 08/12/24 16:00>
MDM/Problems Addressed
Differential Diagnosis Includes:
gastroparesis, gastritis, gerd, sbo
MDM/Problems Addressed:
64 y/o F h/o gastritis, paraesophageal hernia, gastroparesis
n/v TNTC episodes since 12 midnight; epigastric pain
appears dehydrated, given zofran x 2, still nauseated; doesn't tolerate reglan, bun elevated; bicarb 19, ag is [address] does show enlargement of a pancreas cyst which has been there a long time; otherwise no other findings;
still having dry heaving; obs IVF
<Nan Alejandra PA-C - Last Filed: 08/12/24 16:00>
*Critical Care Note
Total Time (30-74mins, 75-104mins- exclusive of procedures): Not Applicable
ED Attending Note
<Nan Alejandra PA-C - Last Filed: 08/12/24 16:00>
-
Portions of this chart may have been created with voice recognition software.� Occasional wrong word or��sound alike� substitutions may have occurred due to the inherent limitations of voice recognition software.
<Ismael Neumann DO - Last Filed: 08/12/24 12:17>
ED Attending Note
Patient seen and examined by attending physician: Yes
I performed the substantive portion of visit, reviewed & personally made and approve the management plan that is documented in note by myself or CARMELA.: Yes
ED Attending Note:
I have seen and evaluated the patient with a [id number] encounter. I have spoken to the advance practicer provider and involved in the medical history, the physical exam, medical decision making.
Evaluation and management service: agree unless noted differently below.
Results interpretation: agree unless noted differently below.
Focused HPI: 64-year-old female presenting with abdominal pain, nausea vomiting
Physical exam: Mildly dry mucous membranes. No significant abdominal tenderness
Medical Decision Making: Obstruction series is concerning for possible ileus. Will obtain CT
Discharge Plan
Departure
Patient Disposition: Admit
Date of Disposition: 08/12/24
Time of Disposition: 13:28
Admit to: Med/Surg
Presentation/result/management discussed w/ accepting MD/DO: Hospitalist
Condition: Fair
Covid-19: Not Applicable
Discharge Problem:
Gastroparesis, Gastritis
Interventions
Interventions:
*Risk Screen - Suicide Last Done: 08/12/24 08:20
*General Assessment Last Done: 08/12/24 08:20
*Neglect/Abuse Screening Last Done: 08/12/24 08:49
ED- Fall Risk Assessment Last Done: 08/12/24 08:49
*ED COVID-19 Vaccine History Last Done: 08/12/24 08:20
MZ-[id number]-[id number] Assessment Last Done: 08/12/24 09:30
[2024-08-12 10:10] VITALS: BMI 21.6
[2024-08-12 10:40] VITALS: BP 143/80
[2024-08-12 11:51] LABS: ALT (SGPT) 26 U/L (0-35); AST (SGOT) 33 U/L (14-36); Albumin 4.1 g/dl (3.5-5.0); Alkaline Phosphatase 89 U/L (38-126); Blood Urea Nitrogen 35 mg/dl (7-17); Calcium 9.4 mg/dl (8.4-10.2); Carbon Dioxide 19 mmol/L (22-30); Chloride 105 mmol/L (98-107); Glucose 121 mg/dl (70-99); Lipase 60 U/L (23-300); Potassium 4.5 mmol/L (3.5-5.1); Sodium 138 mmol/L (135-145); Total Bilirubin 0.5 mg/dl (0.2-1.3); Total Protein 6.3 g/dl (6.3-8.2); eGFR > 60.00
[2024-08-12 12:00] VITALS: BP 129/74
--- NOTE | 2024-08-12 13:52 | HPS.HSE ---
Addendum entered and electronically signed by SAVANNA Maciel 08/12/24 17:03:
Patient reports she received her flu shot, shingles vaccine and COVID booster on 08/08/2024
Original Note:
Family Physician
-
Family Physician: James Neal
Chief Complaint
-
Vomiting, dry heaves
History of Present Illness
64-year-old female complaining of multiple episodes of vomiting since midnight along with dry heaves. She reports she attempted to take Zofran but vomited up. She does report some epigastric pain. . She had CT abdomen pelvis with no acute
inflammatory process in the ER. She denies headache, fever, chills, sore throat, chest pain, palpitations, shortness of breath, diarrhea, urinary symptoms. She has history of gastroparesis, paraesophageal hernia previous hiatal hernia with repair
prior alcohol abuse stopped 6 months ago sober 6 months, gastritis/GERD/GI bleed, lactose intolerance, common variable immunodeficiency, asthma, COPD, ex-smoker, HTN, anxiety, depression osteoporosis, anemia, right breast cancer status post
lumpectomy with radiation 2012
Medical History
Past Medical History
Past Medical History: Reports Other
Additional Past Medical History:
gastroparesis
paraesophageal hernia previous hiatal hernia with repair
Known pancreatic tail cyst
prior alcohol abuse stopped 6 months ago sober 6 months
gastritis/GERD/GI bleed,
intolerance
common variable immunodeficiency
asthma
COPD
ex-smoker
HTN
anxiety
depression
osteoporosis
anemia
right breast cancer status post lumpectomy with radiation 2012
Past Surgical History: Reports Other
Additional Past Surgical History:
right breast cancer status post lumpectomy with radiation 2012
Laminectomy T11-T12
Left wrist fracture repair with pins
Social History
Tobacco: Former Smoker (Per record although patient denies)
Alcohol: Former (Used to drink 3 drinks on weekends stopped 6 months ago)
Drug: None
Personal:
Living: With Family ( Jason)
Employment: Retired
Family History
Family History: Other (Mother living history of hypertension, CAD, CABG at 89, father CHF 89, 5 siblings living no medical problems patient has no children)
Allergies / Home Medications
Allergies reflects when Allergies were last updated in [facility].
Home Medications with original date entered in [facility]
Allergy/Medication List:
Allergies
Allergy/AdvReac Type Severity Reaction Status Date / Time
No Known Allergies Allergy Verified 08/12/24 08:23
Home Medications
immun glob G 10 gram/50 mL(20 %)-pro-IgA 0-50 mcg/mL subcutaneous soln (Hizentra) 10 gm SC TU common variable immunodeficiency 09/30/18
albuterol sulfate 90 mcg/actuation aerosol inhaler (Proventil HFA) 1 puff inhalation R Q4HPRN PRN sob/wheezing 05/17/23
acetaminophen 325 mg tablet (Tylenol) 650 mg PO Q4HPRN PRN mild pain 06/11/23
therapeutic multivitamin 1 tab PO DAILY Supplement 06/11/23
trazodone 100 mg tablet 100 mg PO HS #30 tabs 06/14/23
mirtazapine 15 mg disintegrating tablet 45 mg PO HS Mental Health/Anxiety 12/27/23
omeprazole 20 mg capsule,delayed release 20 mg PO BID Gastrointestinal Issue 12/27/23
aripiprazole 5 mg tablet (Abilify) 5 mg PO DAILY 08/12/24
buspirone 15 mg tablet 15 mg PO BID 08/12/24
cholecalciferol (vitamin D3) 50 mcg (2,000 unit) tablet 50 mcg PO DAILY 08/12/24
fluoxetine 40 mg capsule 40 mg PO DAILY 08/12/24
lisinopril 10 mg tablet 10 mg PO DAILY 08/12/24
ondansetron HCl 8 mg tablet 8 mg PO TIDPRN PRN nausea/vomiting 08/12/24
Review of Systems
-
History Source: Patient
A 12 point ROS was completed and negative except as noted: Yes
Constitutional: Denies Fever, Fatigue or Chills
EENT: Reports Other (Indigestion post vomiting); Denies Sore Throat or Runny Nose
Respiratory: Denies Cough or Trouble Breathing
Cardiac: Denies Chest Pain, Diaphoresis or Syncope
Abdomen/GI: Reports Abdominal Pain (Generalized discomfort from vomiting), Nausea and Vomiting; Denies Diarrhea, Constipated, Bloody Stools, Black Stools or Anorexia
: Denies Dysuria, Frequency, Flank Pain, Incontinence, Difficulty Voiding, Urgency or Bleeding
Musculoskeletal: Denies Joint Pain or Edema
Skin: Denies Itching or Rash
Neurological: Denies Dizzy, Headache or Weakness
Endocrine: Reports No Symptoms
Hematologic/Lymphatic: Reports No Symptoms
Psych: Reports Calm
Physical Exam
Vital Signs
Vital Signs
Temp Pulse Resp BP Pulse Ox
99.6 F 76 16 129/74 98
08/12/24 08:20 08/12/24 12:00 08/12/24 12:00 08/12/24 12:00 08/12/24 12:00
Physical Exam
General: Conversant; No Fever or Chills
HEENT: NormoCephalic, Anicteric, PERRLA, [place] Conjunctivae, No Ptosis and Other (Dry oral mucosa)
Respiratory: Clear; No Wheezes, Rales or Rhonchi
Cardiac: S1/S2 and Regular Rhythm; No Murmur, Rub, Gallop or Peripheral Edema
Breast: Deferred by me
GI: Soft, Non Tender, Non Distended, Normal Bowel Sounds and No Hepatosplenomegaly
Rectal: Deferred by Provider
Genito-urinary: Deferred by me
Musculoskeletal: No Clubbing, No Cyanosis and No Edema
Skin: Warm and Dry; No Rash or Jaundice
Neuro: AO x 3, No Motor Deficits, Nonfocal/grossly intact, Cranial Nerves Intact and No Sensory Deficits; No Slurred Speech, Facial Droop, Tremors or Sedated
Psych: Calm
Laboratory Results
-
08/12/24 09:01
08/12/24 11:26
Laboratory Results
Total Bilirubin 0.5 mg/dl (0.2-1.3) 08/12/24 11:26
AST 33 U/L (14-36) 08/12/24 11:26
ALT 26 U/L (0-35) 08/12/24 11:26
Alkaline Phosphatase 89 U/L (38-126) 08/12/24 11:
Lipase 60 U/L (23-300) 08/12/24 11:26
Data Reviewed
-
CT Scan: Report Reviewed by me
Lab Data: Labs Reviewed by me
Impression/Plan
-
Impression/plan:
Observation MedSurg
#Acute gastroenteritis 2/2 gastroparesis(Dx 2022)
-N.p.o.
-IV Zofran as needed
-IV Protonix
-Tums as needed indigestion
-IV NSS
-IV Reglan as needed will monitor QTc
EKG: NSR 69 bpm, QTc [address] abdomen pelvis:
1. No CT evidence for an acute inflammatory process in the abdomen or pelvis.
2. Chronic findings bilobed cystic lesion tail the pancreas measuring 2 x 1.4 cm previously 1.8 x 1.2 cm
#Known pancreatic tail lesion
Patient follows with Dr. Rasmussen for hiatal hernia and aware of pancreatic cyst was going to reeval in 1 year has appointment August 22
#Gastritis/GERD/GI bleed hx
-IV PPI
#Lactose intolerance Hx
#Common variable immunodeficiency
-Patient on Hizentra 10 g subcu Tuesdays
#Normocytic anemia
Hgb 10.5, MCV 91.5
-Check B12, folate
Paraesophageal hernia
Previous hiatal hernia with repair
#Prior alcohol abuse stopped 6 months ago sober 6 months
-Reports used to drink on weekends 3 drinks each stopped 6 months ago due to GI upset
-Check B12, folate
#asthma-no acute exacerbation
#COPD-no acute exacerbation
# ex-smoker
-Continue inhalers
#HTN
BP 129/74
-Continue lisinopril 10 mg daily
#Anxiety, depression
-Continue BuSpar 15 mg twice daily, fluoxetine 40 mg daily, Abilify 5 mg daily
-Continue mirtazapine 45 mg daily
-Monitor QTc with EKG
#Insomnia
-Continue trazodone 100 mg at bedtime,
Other PMH:
osteoporosis
right breast cancer status post lumpectomy with radiation 2012
DVT prophylaxis
Subcu Lovenox
Full code
[2024-08-12 13:55] VITALS: BP 134/79
[2024-08-12] MEDS: NSS 1000 IV (14:32)
[2024-08-12] MEDS: TUMS EX (EXTRA STRENGTH) CHEWABLE TABLET 300 MG PO (14:40)
--- NOTE | 2024-08-12 14:47 | W.PN.UPDATE ---
Update Note
Progress Note Update
This is an addendum to the H&P written by Sloane Mcdowell on 08/12/2024.� Patient seen examined independently with BINDERY MACHINE OPERATOR.
64-year-old female past medical history of prior alcohol use disorder, gastroparesis, paraesophageal hernia status post prior hernia repair with recurrence, gastritis, GI bleeding, pancreatic cyst, asthma/COPD, breast cancer postlumpectomy,
hypertension, GERD, anxiety/depression, osteoporosis, anemia, migraines, common variable immunodeficiency, presenting for multiple episodes of vomiting.
Abdominal x-ray suggest a degree of bowel stasis.� CT abdomen pelvis shows no evidence of acute inflammatory process in the abdomen or pelvis.
Presentation consistent with gastroparesis.� NPO.� Nicole Stanford.� IV fluids.� IV Protonix.
[2024-08-12 16:08] VITALS: BMI 21.1
[2024-08-12 16:16] VITALS: BP 111/72
--- NOTE | 2024-08-12 16:52 | PTCARENOTE ---
Received patient from ED via stretcher. AAOx3 ambulated to bed without assistance. Abdomen tender. No nausea at present time. Assessed and oriented to room. Call sanchez in close reach.
[2024-08-12] MEDS: LOVENOX 40 MG SC (17:32)
[2024-08-12] MEDS: REMERON ODT 45 MG PO (21:33)
[2024-08-12] MEDS: DESYREL 100 MG PO (21:34)
[2024-08-12] MEDS: BUSPAR 15 MG PO (21:34)
[2024-08-12 23:30] VITALS: BP 121/69
[2024-08-13] MEDS: NSS 1000 IV ×2 (00:59→11:00)
[2024-08-13] MEDS: TYLENOL 650 MG PO (06:21)
[2024-08-13 07:30] VITALS: BP 132/73
[2024-08-13 08:07] LABS: % Eosinophils 2.6 % (0-6); % Immature Granulocytes 0.2 % (0-0.5); % Lymphocytes 23.7 % (20.5-51.1); % Monocytes 6.3 % (1.7-9.3); % Neutrophils 66.2 % (42.2-75.2); Absolute Basophils 0.1 10^3/uL (0-0.2); Absolute Eosinophils 0.1 10^3/uL (0-0.7); Absolute Lymphocytes 1.2 10^3/uL (1.2-3.4); Absolute Monocytes 0.3 10^3/uL (0.1-0.6); Absolute Neutrophils 3.4 10^3/uL (1.4-6.5); Hematocrit 29.5 % (37.0-47.0); Hemoglobin 9.4 g/dL (12.0-16.0); Mean Corp Hgb Conc. 31.9 g/dL (33.0-37.0); Mean Corpuscular Hgb 29.2 pg (27.0-31.0); Mean Corpuscular Volume 91.6 fL (81.0-99.0); Mean Platelet Volume 10.4 fL (7.4-10.4); Nucleated Red Blood Cells % 0 %; Platelet Count 182 10^3/uL (130-400); Red Blood Cell Count 3.22 10^6/uL (4.20-5.40); Red Cell Dist. Width 13.4 % (11.5-14.5); White Blood Cell Count 5.1 10^3/uL (4.8-10.8)
--- NOTE | 2024-08-13 08:49 | W.PN.HOSP.TC ---
Today's Communication/Plan
-
Discharge today
Assessment / Plan
Assessment / Plan
Physical Exam
General: Not in acute distress
HEENT: Normocephalic
Respiratory: Clear to Auscultation Bilaterally
Cardiac: S1/S2 and Regular Rhythm
GI: Soft, Non Tender, Non Distended, Normal Bowel Sounds
Musculoskeletal: No Cyanosis and No Edema
Skin: Warm and Dry
Neuro: AO x 3. Nonfocal/grossly intact bilaterally.
Psych: Calm
Assessment/Plan
#Acute gastroenteritis 2/2 gastroparesis (Dx 2022)
#Vomiting - resolved
-Low fat, low residue diet
-Spoke with gastroenterology, no official consult needed, patient can resume home medications and follow-up outpatient
EKG: NSR 69 bpm, QTc [address] abdomen pelvis (as per radiologist's report):
1. No CT evidence for an acute inflammatory process in the abdomen or pelvis.
2. Chronic findings bilobed cystic lesion tail the pancreas measuring 2 x 1.4 cm previously 1.8 x 1.2 cm
#Known pancreatic tail lesion
Patient follows with Dr. Rasmussen for hiatal hernia and aware of pancreatic cyst was going to reeval in 1 year has appointment August 22
#Gastritis/GERD/GI bleed hx
-Continue home PPI
#Lactose intolerance Hx
#Common variable immunodeficiency
-Patient on Hizentra 10 g subcu Tuesdays
#Normocytic anemia
Hgb 10.5, MCV 91.5
-Check B12, folate
Paraesophageal hernia
Previous hiatal hernia with repair
#Prior alcohol abuse stopped 6 months ago sober 6 months
-Reports used to drink on weekends 3 drinks each stopped 6 months ago due to GI upset
#asthma-no acute exacerbation
#COPD-no acute exacerbation
# ex-smoker
-Continue inhalers
#HTN
BP 129/74
-Continue lisinopril 10 mg daily
#Anxiety, depression
-Continue BuSpar 15 mg twice daily, fluoxetine 40 mg daily, Abilify 5 mg daily
-Continue mirtazapine 45 mg daily
-Monitor QTc with EKG
#Insomnia
-Continue trazodone 100 mg at bedtime,
Other PMH:
osteoporosis
right breast cancer status post lumpectomy with radiation 2012
DVT prophylaxis
Subcu Lovenox
Code Status: Full code
More than 30 minutes spent in discharge including
Final examination of the patient
Summarizing hospital stay
Instructions for continuing care to all relevant caregivers
Preparation of discharge records, prescriptions, and referral forms
Total time spent (in minutes): 38
Anticipated Discharge: Today
Subjective/Interval History
-
Date of Service: August 13, 2024
Patient was seen and examined. She reported feeling a whole lot better today, denied any new significant symptoms or complaints.
Objective Data
-
Labs:
Laboratory Results
08/13/24
06:23
WBC 5.1
Hgb 9.4 L
Hct 29.5 L
Plt Count 182
Sodium Pending
Potassium Pending
Chloride Pending
Carbon Dioxide Pending
BUN Pending
Creatinine Pending
Glucose Pending
Calcium Pending
Total Bilirubin Pending
AST Pending
ALT Pending
Alkaline Phosphatase Pending
Vital Signs:
Vital Signs
Temp Pulse Resp BP Pulse Ox
98.4 F 60 12 121/69 92
08/12/24 23:30 08/12/24 23:30 08/12/24 23:30 08/12/24 23:30 08/12/24 23:30
[2024-08-13 08:55] LABS: ALT (SGPT) 21 U/L (0-35); AST (SGOT) 27 U/L (14-36); Albumin 3.5 g/dl (3.5-5.0); Alkaline Phosphatase 77 U/L (38-126); Blood Urea Nitrogen 24 mg/dl (7-17); Calcium 9.2 mg/dl (8.4-10.2); Carbon Dioxide 17 mmol/L (22-30); Chloride 109 mmol/L (98-107); Estimated Creatinine Clearance 61 ml/min; Glucose 86 mg/dl (70-99); Potassium 4.1 mmol/L (3.5-5.1); Sodium 140 mmol/L (135-145); Total Bilirubin 0.5 mg/dl (0.2-1.3); Total Protein 5.6 g/dl (6.3-8.2); eGFR > 60.00
[2024-08-13] MEDS: PROZAC 40 MG PO (09:08)
[2024-08-13] MEDS: PROTONIX IV 40 MG IV (09:08)
[2024-08-13] MEDS: NSS (PRESERVATIVE FREE) 10 ML IV (09:08)
[2024-08-13] MEDS: ZESTRIL 10 MG PO (09:08)
[2024-08-13] MEDS: BUSPAR 15 MG PO (09:09)
[2024-08-13] MEDS: ABILIFY 5 MG PO (09:09)
[2024-08-13 15:18] VITALS: BP 137/85
--- NOTE | 2024-08-13 16:19 | CM ---
Alert awake oriented patient who lives with her Fawad who lives in a [address] 0 steps to enter.She is independent in driving and in all activities of daily living.Offered VN she declined.
No adaptive devices
Never had VN/SNF
Pharmacy [facility]
PLAN Home no needs
== END 2024-08-13 16:38 | disposition home or self-care (01) ==
LOC: 4 EAST ACU 14:34
PROVIDERS: Clinical Nurse Specialist Family Health; Physician Assistant; ADMITTING PHYSICIAN Hospitalist; ATTENDING PHYSICIAN Hospitalist; EMERGENCY PHYSICIAN Student in an Organized Health Care Education/Training Program; FAMILY PHYSICIAN Internal Medicine
DX: K52.9 Noninfective gastroenteritis and colitis, unspecified (principal); R10.9 Unspecified abdominal pain; K86.2 Cyst of pancreas; F10.11 Alcohol abuse, in remission; K31.84 Gastroparesis; J44.89 Other specified chronic obstructive pulmonary disease; K21.9 Gastro-esophageal reflux disease without esophagitis; M81.0 Age-related osteoporosis without current pathological fracture; I10 Essential (primary) hypertension; F41.9 Anxiety disorder, unspecified; F32.A Depression, unspecified; D53.9 Nutritional anemia, unspecified; E86.0 Dehydration; E73.9 Lactose intolerance, unspecified; D83.9 Common variable immunodeficiency, unspecified; K44.9 Diaphragmatic hernia without obstruction or gangrene; G47.00 Insomnia, unspecified; K29.70 Gastritis, unspecified, without bleeding; K42.9 Umbilical hernia without obstruction or gangrene; K57.30 Diverticulosis of large intestine without perforation or abscess without bleeding; I25.10 Atherosclerotic heart disease of native coronary artery without angina pectoris; Z87.19 Personal history of other diseases of the digestive system; Z85.3 Personal history of malignant neoplasm of breast; Z87.891 Personal history of nicotine dependence; Z82.49 Family history of ischemic heart disease and other diseases of the circulatory system; Z92.3 Personal history of irradiation
CPT/HCPCS: 74022; 74177; 80053; 83690; 85025; 93005; 96374; 96375; 96376; 99285; G0378; Q9967

== ENCOUNTER 2024-11-23 04:01 | Inpatient (IN) | payer OTHER, SELFPAY ==
[2024-11-22 19:16] VITALS: BP 170/102
[2024-11-22 19:49] LABS: COVID-19 Antigen Negative (Negative)
[2024-11-22 21:27] VITALS: BMI 21.9
[2024-11-22 21:30] VITALS: BP 156/98
[2024-11-22 21:35] LABS: % Basophils 0.7 % (0-2); % Eosinophils 0.1 % (0-6); % Immature Granulocytes 0.4 % (0-0.5); % Lymphocytes 7.1 % (20.5-51.1); % Monocytes 3.3 % (1.7-9.3); % Neutrophils 88.4 % (42.2-75.2); Absolute Basophils 0.1 10^3/uL (0-0.2); Absolute Lymphocytes 0.5 10^3/uL (1.2-3.4); Absolute Monocytes 0.2 10^3/uL (0.1-0.6); Absolute Neutrophils 6.1 10^3/uL (1.4-6.5); Hematocrit 35.9 % (37.0-47.0); Hemoglobin 11.9 g/dL (12.0-16.0); Mean Corp Hgb Conc. 33.1 g/dL (33.0-37.0); Mean Corpuscular Hgb 29.8 pg (27.0-31.0); Mean Corpuscular Volume 89.8 fL (81.0-99.0); Nucleated Red Blood Cells % 0 %; Platelet Count 166 10^3/uL (130-400); Red Cell Dist. Width 14.2 % (11.5-14.5)
[2024-11-22] MEDS: TYLENOL 650 MG PO (21:51)
[2024-11-22 21:53] LABS: ALT (SGPT) 25 U/L (0-35); AST (SGOT) 34 U/L (14-36); Albumin 4.3 g/dl (3.5-5.0); Alkaline Phosphatase 111 U/L (38-126); Blood Urea Nitrogen 24 mg/dl (7-17); Calcium 9.3 mg/dl (8.4-10.2); Carbon Dioxide 24 mmol/L (22-30); Chloride 101 mmol/L (98-107); Estimated Creatinine Clearance 55 ml/min; Glucose 153 mg/dl (70-99); Potassium 4.6 mmol/L (3.5-5.1); Sodium 135 mmol/L (135-145); Total Bilirubin 0.6 mg/dl (0.2-1.3); Total Protein 6.8 g/dl (6.3-8.2); eGFR > 60.00
[2024-11-22 22:00] VITALS: BP 139/95
--- NOTE | 2024-11-22 22:12 | ED.GENMED ---
History of Present Illness
General
Chief Complaint: Abdominal Symptoms
Source: patient
Exam Limitations: none
Time Seen by Provider: 11/22/24 21:47
History of Present Illness
History of Present Illness:
This is a 64 year old female that comes in with c/o fever, cough, and vomiting. States that she has been in bed for the past 2 days. State that at first she thought it was a cold but today she felt worse. States that she gold had fever with chills,
SOB, nausea, vomiting, headache and dizziness. Denies any chest pain, abd pain, diarrhea, urinary burning.
Past History
Past History
ED Past Medical History: Asthma, Cancer (Breast cancer, diagnosed September 2013 with lumpectomy), COPD, GERD, HTN, Psychiatric (Anxiety, Depression) and Other (Pneumonia, Immune problem, diverticulosis, gastritis, GI bleed, osteoporosis, anemia,
migraines, kyphosis, C-diff, Back pain, Migraines, PNA, Hiatal hernia, Anemia, )
ED Past Surgical History: Gynecological (Breast lumpectomy September 2013), Orthopedic (Left wrist distal radius fracture repair November 2013, Back surgery fusion, Bunionectomy, ) and Other (Cataracts, hiatal hernia surgery, )
Social History
Tobacco: Former smoker
Alcohol: None
Drug: None
Personal:
Living: with family
Employment: Employed
Family History
Family History: Other (Noncontributory)
Review of Systems
Review of Systems
All Other Systems: ROS reviewed and negative except as documented in HPI and ROS
Constitutional: Reports fever and chills
EENT: Reports no symptoms
Respiratory: Reports cough and trouble breathing
Cardiac: Denies chest pain
ABD/GI: Reports nausea and vomiting; Denies abdominal pain or diarrhea
: Reports no symptoms; Denies dysuria, frequency or urgency
Musculoskeletal: Reports no symptoms
Skin: Reports no symptoms
Neurological: Reports dizzy and headache
Psychiatric: Reports no symptoms
Phy Exam
General Physical Exam
General Presentation: no apparent distress
General age: appears stated age
General Skin: warm
General Habitus: elderly
General Mental: alert
General Hydration: appears well hydrated
ENT Exam
ENT Exam: TM's normal, pharynx normal and neck supple
Eye Exam
Eye Exam: EOMI
Cardiovascular Exam
Cardiovascular Exam: regular rate/rhythm, no edema and normal peripheral pulses
Pulmonary Exam
Pulmonary Exam: no respiratory distress, no rales, chest non tender, no crackles, no rhonchi and generalized wheezing (Insp and exp)
Gastrointestinal Exam
Gastrointestinal Exam: normal bowel sounds, non tender, soft, no organomegaly, no pulsatile mass and non distended
Musculoskeletal Exam
Musculoskeletal Exam: full ROM and no edema
Skin Exam
Skin Exam: normal color, warm/dry, no rash and no petechia
Psychiatric Exam
Psychiatric Exam: normal mood/affect
Course
Orders/Labs/Results
Orders:
Orders
11/22/24 19:28
COVID-19 Antigen Urgent
Source: Nasal Swab
Influenza A+B Rapid Molecular Urgent
ROSHAN Source: Nasal Swab
Specimen Description:
11/22/24 21:27
CR Chest - 2 Views Urgent
Comment:
Reason For Exam: SOB
11/22/24 21:29
Complete Blood Count/With Diff Urgent
Comprehensive Metabolic Panel Urgent
11/22/24 21:36
Acetaminophen [Tylenol] 650 mg .ROUTE .STK-MED ONE
11/22/24 21:51
Acetaminophen [Tylenol] 650 mg PO NOW STA
11/22/24 22:13
Dexamethasone Sod Phosphate [Decadron] 20 mg IV NOW STA
Ipratropium/Albuterol Sulfate [Duoneb] 3 ml INH R NOW ONE
11/22/24 22:14
Ondansetron Injectable [Zofran] 4 mg IV NOW STA
11/22/24 22:21
Electrocardiogram (*1) Urgent
Reason for Study: Shortness of Breath
EKG- Treatment ONCE
Abnormal Lab Results
11/22/24
21:29
RBC 4.00 L 10^6/uL
(4.20-5.40)
Hgb 11.9 L g/dL
(12.0-16.0)
Hct 35.9 L %
(37.0-47.0)
Absolute Lymphs (auto) 0.5 L 10^3/uL
(1.2-3.4)
Neutrophils % 88.4 H %
(42.2-75.2)
Lymphocytes % 7.1 L %
(20.5-51.1)
BUN 24 H mg/dl
(7-17)
Glucose 153 H mg/dl
(70-99)
11/22/24 21:29
11/22/24 21:29
H/H slightly low, Dehydration. Hyperglycemia. COVID and Influenza negative.
Vital Signs
Initial and Last Documented VS:
Initial Vital Signs
Temp Pulse Resp BP Pulse Ox
100.3 F 90 20 170/102 95
11/22/24 19:16 11/22/24 19:16 11/22/24 19:16 11/22/24 19:16 11/22/24 19:16
Last Documented Vital Signs
Temp Pulse Resp BP Pulse Ox
102.1 F H 93 18 154/93 92
11/22/24 21:35 11/22/24 23:45 11/22/24 23:45 11/22/24 23:00 11/22/24 23:00
MDM/Problems Addressed
Differential Diagnosis Includes:
PNA, Asthma exacerbation,
MDM/Problems Addressed:
This is a 64 year old female that comes in with c/o fever, nausea, vomiting and SOB. States that this started 2 days ago and she has been in bed.
Will check labs. Chest x-ray .Medicate for fever and nausea.
Back into see patient. Patient continued with insp and exp wheezing throughout. Patient states that she is very weak. Chest X-ray is negative for any PNA. However will admit do to wheezing COPD/ASThma exacerbation. Hospitalist notified.
Chronic conditions affecting care: COPD and Asthma
Acute Exacerbation and/or Progression of Chronic Illness: COPD and Asthma
*Radiology
Radiology exam reviewed: radiology read reviewed (Chest- COPD, Mild parenchymal scarring. NO evidence of Pneumonia or CHF. )
*Pulse Oximetry
Patient hypoxic: no
*EKG
Interpreted by ED Provider?: Yes
Heart Rate: 86
Rhythm: sinus
[place]: normal axis
Interval: normal interval
QRS Pattern: normal QRS
Ischemia: non-specific ST changes (I, aVF, V3, V4, V5, V6)
*Flame Cutting Supervisor Interpretation
Rate: normal
Heart Rate: 89
Rhythm: PVC's
*Critical Care Note
Total Time (30-74mins, 75-104mins- exclusive of procedures): Not Applicable
ED Attending Note
-
Portions of this chart may have been created with voice recognition software.� Occasional wrong word or��sound alike� substitutions may have occurred due to the inherent limitations of voice recognition software.
Discharge Plan
Departure
Patient Disposition: Admit
Date of Disposition: 11/23/24
Time of Disposition: 01:08
Admit to: Med/Surg
Presentation/result/management discussed w/ accepting MD/DO: Hospitalist
Patient with high blood pressure during this ER visit?: Yes
Condition: Good
Covid-19: Negative COVID-19
Discharge Problem:
Diffuse wheezing, Acute exacerbation of COPD with asthma
Prescriptions:
No Action
Hizentra 10 GM/50 ML solution
10 gm SC TU
Rx Instructions:
SQ weekly immune deficiency Tuesday
albuterol sulfate [Proventil HFA] 90 MCG/PUFF HFA aerosol inhaler
1 puff inhalation R Q4HPRN PRN (Reason: sob/wheezing)
Patient Comments:
only taken as needed
Rx Instructions:
Use as 'rescue therapy' if away from home, in place of Duoneb.
acetaminophen [Tylenol] 325 mg Tablet
650 mg PO Q4HPRN PRN (Reason: mild pain)
therapeutic multivitamin Tablet
1 tab PO DAILY
mirtazapine 15 mg tablet,disintegrating
45 mg PO HS
omeprazole 20 mg capsule,delayed release(DR/EC)
20 mg PO BID
aripiprazole [Abilify] 5 mg Tablet
5 mg PO DAILY
fluoxetine 40 mg capsule
40 mg PO DAILY
ondansetron HCl 8 mg tablet
8 mg PO TIDPRN PRN (Reason: nausea/vomiting)
lisinopril 10 mg tablet
10 mg PO DAILY
buspirone 15 mg tablet
15 mg PO BID
cholecalciferol (vitamin D3) 50 mcg (2,000 unit) Tablet
50 mcg PO DAILY
trazodone 100 mg tablet
100 mg PO HS
sodium bicarbonate 650 mg tablet
650 mg PO BID Qty: 7 0RF
Referrals:
James Neal MD [Family Provider] -
Interventions
Interventions:
*Risk Screen - Suicide Last Done: 11/22/24 19:16
*General Assessment Last Done: 11/22/24 19:16
*Neglect/Abuse Screening Last Done: 11/22/24 19:16
ED- Fall Risk Assessment Last Done: 11/22/24 21:27
*ED COVID-19 Vaccine History Last Done: 11/22/24 19:16
GD-Zaxekj-Sfaklvnyub Assessment Last Done: 11/22/24 21:27
Discharge Date and Time
Print Language: GHANAIAN
[2024-11-22] MEDS: DECADRON 20 MG IV (22:53)
[2024-11-22] MEDS: DUONEB 3 ML INH (22:54)
[2024-11-22] MEDS: ZOFRAN 4 MG IV (22:54)
[2024-11-22 23:00] VITALS: BP 154/93
[2024-11-23] VITALS (18 sets, daily range): BP systolic 120–160; BP diastolic 63–100; BMI 20.9
--- NOTE | 2024-11-23 03:26 | HPS.HSE ---
Family Physician
-
Family Physician: James Neal
Chief Complaint
-
Cough and fever
History of Present Illness
This is a 64-year-old with past medical history significant for COPD, GERD, hypogammaglobulinemia, anemia, and history of breast cancer in remission who presents to the emergency department after 2 days of respiratory symptoms.
Patient reports 2 days of productive cough, shortness of breath and fevers at home. She says she started taking azithromycin at home 2 days ago on onset of symptoms. She is continue to have fevers and so she said come to the emergency department.
She reports dyspnea on exertion. She also started having some vomiting that was nonbloody and nonbilious. Denies any diarrhea. She has no known sick contacts.
In the ED he was febrile to 102.1, blood pressure was 150/80 with a pulse of 120. She was satting 93% on room air. Chest x-ray is consistent with COPD but shows no acute infiltrates. ECG shows a normal sinus rhythm in the 80s without any acute ST
or T wave changes. COVID test was negative. Influenza was negative. He had no leukocytosis with white count of 7 and baseline hemoglobin platelet count. Electrolytes were within normal limits. BUN and creatinine were also unchanged from prior.
Medical History
Past Medical History
Past Medical History: Reports Asthma, COPD, GERD, HTN, Psychiatric (Anxiety, depression) and Other
Additional Past Medical History:
Pneumonia, Immune problem, diverticulosis, gastritis, GI bleed, osteoporosis, anemia, migraines, kyphosis, C-diff, Back pain, Migraines, PNA, Hiatal hernia, Anemia
Past Surgical History: Reports Other
Additional Past Surgical History:
Breast lumpectomy September 2013
Left wrist distal radius fracture repair November 2013, Back surgery fusion, Bunionectomy
hiatal hernia surgery
Social History
Tobacco: Former Smoker
Alcohol: None
Drug: None
Personal:
Living: With Family
Employment: Employed
Family History
Family History: Not pertinent
Allergies / Home Medications
Allergies reflects when Allergies were last updated in [employer].
Home Medications with original date entered in [employer]
Allergy/Medication List:
Allergies
Allergy/AdvReac Type Severity Reaction Status Date / Time
No Known Allergies Allergy Verified 08/12/24 08:23
Home Medications
immun glob G 10 gram/50 mL(20 %)-pro-IgA 0-50 mcg/mL subcutaneous soln (Hizentra) 10 gm SC TU common variable immunodeficiency 09/30/18
albuterol sulfate 90 mcg/actuation aerosol inhaler (Proventil HFA) 1 puff inhalation R Q4HPRN PRN sob/wheezing 05/17/23
acetaminophen 325 mg tablet (Tylenol) 650 mg PO Q4HPRN PRN mild pain 06/11/23
therapeutic multivitamin 1 tab PO DAILY Supplement 06/11/23
mirtazapine 15 mg disintegrating tablet 45 mg PO HS Mental Health/Anxiety 12/27/23
omeprazole 20 mg capsule,delayed release 20 mg PO BID Gastrointestinal Issue 12/27/23
aripiprazole 5 mg tablet (Abilify) 5 mg PO DAILY Mental Health/Anxiety 08/12/24
buspirone 15 mg tablet 15 mg PO BID Mental Health/Anxiety 08/12/24
cholecalciferol (vitamin D3) 50 mcg (2,000 unit) tablet 50 mcg PO DAILY Supplement 08/12/24
fluoxetine 40 mg capsule 40 mg PO DAILY Mental Health/Anxiety 08/12/24
lisinopril 10 mg tablet 10 mg PO DAILY Blood Pressure 08/12/24
ondansetron HCl 8 mg tablet 8 mg PO TIDPRN PRN nausea/vomiting 08/12/24
trazodone 100 mg tablet 100 mg PO HS Sleep 08/12/24
sodium bicarbonate 650 mg tablet 650 mg PO BID #7 tabs 08/13/24
Review of Systems
-
History Source: Patient
Constitutional: Reports Fever
EENT: Reports No Symptoms
Respiratory: Reports Cough and Trouble Breathing
Cardiac: Reports No Symptoms
Abdomen/GI: Reports Nausea
: Reports No Symptoms
Musculoskeletal: Reports No Symptoms
Skin: Reports No Symptoms
Neurological: Reports No Symptoms
Endocrine: Reports No Symptoms
Hematologic/Lymphatic: Reports No Symptoms
Psych: Reports No Symptoms
Physical Exam
Vital Signs
Vital Signs
Temp Pulse Resp BP Pulse Ox
102.1 F H 92 18 151/87 91
11/22/24 21:35 11/23/24 02:15 11/23/24 02:15 11/23/24 02:00 11/23/24 01:15
Physical Exam
General: Well Developed and Appears in Distress
HEENT: NormoCephalic, Anicteric, Moist mucous membranes and Atraumatic
Respiratory: Rhonchi
Cardiac: S1/S2 and Regular Rhythm
Breast: Deferred by me
GI: Soft, Non Tender, Non Distended and Normal Bowel Sounds
Rectal: Deferred by Provider
Genito-urinary: Deferred by me
Musculoskeletal: No Clubbing, No Cyanosis and No Edema
Skin: Warm
Neuro: AO x 3 and Nonfocal/grossly intact
Hematologic/Lymphatic: No Lymphadenopathy
Psych: Calm
Laboratory Results
-
11/22/24 21:29
11/22/24 21:29
Laboratory Results
Total Bilirubin 0.6 mg/dl (0.2-1.3) 11/22/24 21:29
AST 34 U/L (14-36) 11/22/24 21:29
ALT 25 U/L (0-35) 11/22/24 21:29
Alkaline Phosphatase 111 U/L (38-126) 11/22/24 21:29
Data Reviewed
-
Diagnostic Radiology: Image Personally Visualized and interpreted and Report Reviewed by me
Medical Tests (Nuc Med, Echo, EKG etc): Image Personally Visualized and interpreted
Lab Data: Labs Reviewed by me
Old Records: Reviewed
Impression/Plan
-
IMPRESSION:
64 y.o with productive cough, fevers and chills. SOB at rest without hypoxia. Has fever to 102 w/o leukocytosis. Negative COVID and Influenza. Xray shows no acute infiltrates. She does report earlier sinus congestion but not now. On my exam
she is slightly ronchorous without wheezing. Picture c/w pneumonia despite xray. She has been on self prescribed azithromycin x 2 days.
PLAN:
1. Pneumonia - Clinically based on fever, cough, sob although no Xray findings.
- admit to med/surg
- blood cultures
- ceftriaxone/doxycycline for now, check mrsa screen
- given h/o hypogammaglobinemia will add vancomycin if continued fever
- check procalcitonin and legionella ag
- supportive care with antipyretics and antitussives
2. COPD - Mild wheezing. Maintains normal O2 on RA at rest.
- short prednisone taper, 40mg daily
- albuterol/ipratopium RTC and prn
DVT PPX - lovenox sq
[2024-11-23 06:20] LABS: Hematocrit 34.7 % (37.0-47.0); Hemoglobin 11.4 g/dL (12.0-16.0); Mean Corp Hgb Conc. 32.9 g/dL (33.0-37.0); Mean Corpuscular Hgb 29.5 pg (27.0-31.0); Mean Corpuscular Volume 89.9 fL (81.0-99.0); Mean Platelet Volume 10.6 fL (7.4-10.4); Platelet Count 170 10^3/uL (130-400); Red Blood Cell Count 3.86 10^6/uL (4.20-5.40); Red Cell Dist. Width 14.4 % (11.5-14.5); White Blood Cell Count 5.8 10^3/uL (4.8-10.8)
[2024-11-23] MEDS: ROCEPHIN 1000 MG IV (06:30)
[2024-11-23] MEDS: STERILE WATER FOR INJECTION 10 ML IV (06:30)
[2024-11-23 06:42] LABS: Blood Urea Nitrogen 28 mg/dl (7-17); Calcium 9.5 mg/dl (8.4-10.2); Carbon Dioxide 23 mmol/L (22-30); Chloride 101 mmol/L (98-107); Estimated Creatinine Clearance 55 ml/min; Glucose 157 mg/dl (70-99); Potassium 4.3 mmol/L (3.5-5.1); Sodium 136 mmol/L (135-145); eGFR > 60.00
[2024-11-23 07:16] LABS: Procalcitonin 0.11 ng/ml (0.0-0.25)
[2024-11-23] MEDS: DUONEB 3 ML INH ×4 (08:38→20:23)
[2024-11-23] MEDS: PROZAC 40 MG PO (08:45)
[2024-11-23] MEDS: ABILIFY 5 MG PO (08:45)
[2024-11-23] MEDS: PROTONIX 40 MG PO ×2 (08:46→20:32)
[2024-11-23] MEDS: BUSPAR 15 MG PO ×2 (08:46→20:31)
[2024-11-23] MEDS: SODIUM BICARBONATE 650 MG PO ×2 (08:46→20:32)
[2024-11-23] MEDS: VIBRAMYCIN 100 MG PO ×2 (08:46→20:32)
[2024-11-23] MEDS: MUCINEX 600 MG PO ×2 (08:46→20:31)
[2024-11-23] MEDS: ZESTRIL 10 MG PO (08:46)
[2024-11-23] MEDS: DELTASONE 40 MG PO (08:48)
[2024-11-23] MEDS: ZOFRAN 4 MG IV (09:12)
[2024-11-23] MEDS: TYLENOL 650 MG PO (14:28)
--- NOTE | 2024-11-23 14:45 | W.PN.HOSP.TC ---
Today's Communication/Plan
-
Continue antibiotics
Assessment / Plan
Assessment / Plan
IMPRESSION:
64 y.o with productive cough, fevers and chills. Negative COVID and Influenza. Xray shows no acute infiltrates. Treated for pneumonia.
Assessment/plan
Sepsis, present on admission Secondary to pneumonia
Clinically based on fever, cough, sob although no Xray findings.
Meeting sepsis criteria with fever and tachycardia
Chest x-ray shows no infiltrate but clinically patient has pneumonia
- blood cultures
-Continue ceftriaxone/doxycycline for now, check mrsa screen
-Patient is immunocompromise given h/o hypogammaglobinemia
Of serum
Acute COPD exacerbation
Mild wheezing. Maintains normal O2 on RA at rest.
- short prednisone taper, 40mg daily
- albuterol/ipratopium RTC and prn
History of hypertension
Continue home meds
History of anxiety/depression.
Continue home med
History of GERD.
Continue pantoprazole
CODE STATUS: Full code
DVT prophylaxis: Lovenox
Diet: Regular diet
Anticipated Discharge: 24 - 48 hours
Subjective/Interval History
-
Date of Service: November 23, 2024
Patient seen and examined bedside.
Still with shortness of breath some cough.
Admitted overnight with fever, coughing, x-ray shows no infiltrate but patient was treated for pneumonia.
Objective Data
-
Labs:
Laboratory Results
11/23/24
05:49
WBC 5.8
Hgb 11.4 L
Hct 34.7 L
Plt Count 170
Sodium 136
Potassium 4.3
Chloride 101
Carbon Dioxide 23
BUN 28 H
Creatinine 1.0
Glucose 157 H
Calcium 9.5
Vital Signs:
Vital Signs
Temp Pulse Resp BP Pulse Ox
98.6 F 103 16 131/85 92
11/23/24 14:00 11/23/24 14:00 11/23/24 14:00 11/23/24 14:00 11/23/24 08:40
Physical Exam
-
General: Well Developed, Well Nourished, No Apparent Distress and Comfortable
HEENT: Normocephalic, Atraumatic, Moist Mucous Membranes, No Ptosis, PERRLA and Nose Appears Normal
Respiratory: Wheezes, Rales, Rhonchi and Non Labored Respirations
Cardiac: Regular Rhythm and S1/S2
Breast: Deferred by me
GI: Soft, Nontender, Nondistended and Normal Bowel Sounds
Genito-urinary: No Costovertebral Tender
Musculoskeletal: No Clubbing, No Cyanosis and No Edema
Skin: Warm
Neuro: Awake, Alert, Oriented, AO x 3 and No Motor Deficits
Psych: Calm
[2024-11-23] MEDS: LOVENOX 40 MG SC (17:49)
[2024-11-23] MEDS: DESYREL 100 MG PO (20:32)
[2024-11-23] MEDS: REMERON ODT 45 MG PO (20:35)
[2024-11-24] MEDS: TYLENOL 650 MG PO ×2 (01:29→09:10)
[2024-11-24] MEDS: STERILE WATER FOR INJECTION 10 ML IV (05:01)
[2024-11-24] MEDS: ROCEPHIN 1000 MG IV (05:01)
[2024-11-24 07:00] VITALS: BP 127/87
[2024-11-24 07:22] LABS: Hematocrit 32.4 % (37.0-47.0); Hemoglobin 10.8 g/dL (12.0-16.0); Mean Corp Hgb Conc. 33.3 g/dL (33.0-37.0); Mean Corpuscular Hgb 28.9 pg (27.0-31.0); Mean Corpuscular Volume 86.6 fL (81.0-99.0); Mean Platelet Volume 11.4 fL (7.4-10.4); Platelet Count 154 10^3/uL (130-400); Red Blood Cell Count 3.74 10^6/uL (4.20-5.40); Red Cell Dist. Width 14.8 % (11.5-14.5); White Blood Cell Count 6.9 10^3/uL (4.8-10.8)
[2024-11-24 08:11] LABS: Blood Urea Nitrogen 37 mg/dl (7-17); Carbon Dioxide 23 mmol/L (22-30); Chloride 103 mmol/L (98-107); Estimated Creatinine Clearance 54 ml/min; Glucose 97 mg/dl (70-99); Potassium 4.4 mmol/L (3.5-5.1); Sodium 137 mmol/L (135-145); eGFR > 60.00
[2024-11-24] MEDS: DUONEB 3 ML INH ×3 (08:28→18:30)
[2024-11-24] MEDS: ABILIFY 5 MG PO (09:07)
[2024-11-24] MEDS: BUSPAR 15 MG PO ×2 (09:07→19:53)
[2024-11-24] MEDS: ZESTRIL 10 MG PO (09:08)
[2024-11-24] MEDS: SODIUM BICARBONATE 650 MG PO ×2 (09:08→19:53)
[2024-11-24] MEDS: VIBRAMYCIN 100 MG PO ×2 (09:08→19:53)
[2024-11-24] MEDS: MUCINEX 600 MG PO ×2 (09:08→19:53)
[2024-11-24] MEDS: PROTONIX 40 MG PO ×2 (09:08→19:53)
[2024-11-24] MEDS: PROZAC 40 MG PO (09:08)
[2024-11-24] MEDS: DELTASONE 40 MG PO (09:08)
[2024-11-24] MEDS: ZOFRAN 4 MG IV (10:26)
[2024-11-24] MEDS: DUONEB INH (11:15)
--- NOTE | 2024-11-24 11:35 | CM ---
MELISSA met with Ivana at bedside to complete IA. She was admitted with pneumonia. Ivana lives with her , Fawad, in a 1 floor apartment with no entry steps. Ivana is independent in driving and in all ADLs.
No hx of SNF or VN and has no DME in the home.
Pharmacy: [facility] in [place]
PCP: James Neal
PLAN: Discharge to home with no identified needs
[2024-11-24] MEDS: COMPAZINE 5 MG IV (11:36)
--- NOTE | 2024-11-24 13:58 | W.PN.HOSP.TC ---
Today's Communication/Plan
-
standing Compazine check QTC
continue Abx
Assessment / Plan
Assessment / Plan
Assessment:
Sepsis POA (fever, tachycardia) from suspected community acquired pneumonia
- continue Rocephin, Doxy day 2 - continue
Acute COPD exacerbation
- continue PO steroids
- scheduled and prn nebs
Hx of GERD
Hx of Gastroparesis
- continue PPI BID
- standing Compazine x 24 hours; check QTC
Essential HTN
- continue FELIX
Anxiety/Depression
- continue BuSpar/Abilify/Proscar/Trazodone
DVT ppx: Lovenox
Code: Full
Anticipated Discharge: 24 - 48 hours
Subjective/Interval History
-
Date of Service: November 24, 2024
reports some nausea, no vomiting, mild epigastric discomfort from reflux
denies cp or SOB
Objective Data
-
Labs:
Laboratory Results
11/24/24
06:54
WBC 6.9
Hgb 10.8 L
Hct 32.4 L
Plt Count 154
Sodium 137
Potassium 4.4
Chloride 103
Carbon Dioxide 23
BUN 37 H
Creatinine 1.0
Glucose 97
Calcium 9.0
Vital Signs:
Vital Signs
Temp Pulse Resp BP Pulse Ox
98.4 F 96 18 127/87 97
11/24/24 07:00 11/24/24 09:08 11/24/24 08:31 11/24/24 09:08 11/24/24 08:31
Physical Exam
-
General: No Apparent Distress
HEENT: Normocephalic and Atraumatic
Respiratory: Negative Wheezes
Cardiac: Regular Rhythm
GI: Soft
Genito-urinary: No Costovertebral Tender
Neuro: AO x 3
Hematologic / Lymphatic: No Lymphadenopathy
Psych: Calm
Data Reviewed
-
Total Time Spent with Patient (in minutes): 41
Labs: Labs Reviewed by me
[2024-11-24] MEDS: ATIVAN 0.5 MG PO (14:37)
[2024-11-24 15:00] VITALS: BP 156/90
[2024-11-24] MEDS: LOVENOX 40 MG SC (17:08)
[2024-11-24] MEDS: COMPAZINE 5 MG PO (17:08)
[2024-11-24] MEDS: REGLAN 5 MG IV (18:25)
[2024-11-24] MEDS: REMERON 45 MG PO (22:31)
[2024-11-24] MEDS: DESYREL 100 MG PO (22:31)
[2024-11-24 23:13] VITALS: BP 139/77
[2024-11-25] MEDS: REGLAN 5 MG IV (02:45)
[2024-11-25] MEDS: STERILE WATER FOR INJECTION 10 ML IV (05:45)
[2024-11-25] MEDS: ROCEPHIN 1000 MG IV (05:45)
[2024-11-25 06:44] LABS: Hematocrit 33.8 % (37.0-47.0); Hemoglobin 11.3 g/dL (12.0-16.0); Mean Corp Hgb Conc. 33.4 g/dL (33.0-37.0); Mean Corpuscular Hgb 29.5 pg (27.0-31.0); Mean Corpuscular Volume 88.3 fL (81.0-99.0); Mean Platelet Volume 10.8 fL (7.4-10.4); Platelet Count 163 10^3/uL (130-400); Red Blood Cell Count 3.83 10^6/uL (4.20-5.40); Red Cell Dist. Width 14.8 % (11.5-14.5); White Blood Cell Count 10.2 10^3/uL (4.8-10.8)
[2024-11-25 07:00] VITALS: BP 147/99
[2024-11-25 07:08] LABS: Blood Urea Nitrogen 30 mg/dl (7-17); Calcium 8.8 mg/dl (8.4-10.2); Carbon Dioxide 24 mmol/L (22-30); Chloride 98 mmol/L (98-107); Estimated Creatinine Clearance 60 ml/min; Glucose 119 mg/dl (70-99); Sodium 133 mmol/L (135-145); eGFR > 60.00
[2024-11-25] MEDS: DUONEB 3 ML INH ×4 (07:46→21:27)
[2024-11-25] MEDS: TYLENOL 650 MG PO (08:50)
[2024-11-25] MEDS: DELTASONE 40 MG PO (08:51)
[2024-11-25] MEDS: ABILIFY 5 MG PO (08:51)
[2024-11-25] MEDS: SODIUM BICARBONATE 650 MG PO ×2 (08:51→21:09)
[2024-11-25] MEDS: PROZAC 40 MG PO (08:51)
[2024-11-25] MEDS: MUCINEX 600 MG PO ×2 (08:51→21:09)
[2024-11-25] MEDS: ZESTRIL 10 MG PO (08:51)
[2024-11-25] MEDS: BUSPAR 15 MG PO ×2 (08:52→21:09)
[2024-11-25] MEDS: VIBRAMYCIN 100 MG PO ×2 (08:52→21:09)
[2024-11-25] MEDS: PROTONIX 40 MG PO ×2 (08:52→21:09)
--- NOTE | 2024-11-25 10:52 | W.PN.HOSP.TC ---
Today's Communication/Plan
-
continue Abx
continue Reglan and assess diet tolerance
Assessment / Plan
Assessment / Plan
Assessment:
Sepsis POA (fever, tachycardia) from suspected community acquired pneumonia
- continue Rocephin, Doxy day 2 - continue
Acute COPD exacerbation
- continue PO steroids
- scheduled and prn nebs
Hx of GERD
Hx of Gastroparesis
- continue PPI BID
- standing Compazine x 24 hours; check QTC
Essential HTN
- continue FELIX
Anxiety/Depression
- continue BuSpar/Abilify/Proscar/Trazodone
DVT ppx: Lovenox
Code: Full
Anticipated Discharge: Within 24 hours
Subjective/Interval History
-
Date of Service: November 25, 2024
gastroparesis symptoms improving on Reglan
Objective Data
-
Labs:
Laboratory Results
11/25/24
06:08
WBC 10.2
Hgb 11.3 L
Hct 33.8 L
Plt Count 163
Sodium 133 L
Potassium 4.0
Chloride 98
Carbon Dioxide 24
BUN 30 H
Creatinine 0.9
Glucose 119 H
Calcium 8.8
Vital Signs:
Vital Signs
Temp Pulse Resp BP Pulse Ox
100.1 F 99 18 147/99 92
11/25/24 07:00 11/25/24 07:50 11/25/24 07:50 11/25/24 07:00 11/25/24 07:50
Physical Exam
-
General: No Apparent Distress
HEENT: Normocephalic and Atraumatic
Respiratory: Negative Wheezes
Cardiac: Regular Rhythm and S1/S2
GI: Soft
Genito-urinary: No Costovertebral Tender
Neuro: AO x 3
Hematologic / Lymphatic: No Lymphadenopathy
Psych: Calm
Data Reviewed
-
Total Time Spent with Patient (in minutes): 44
Labs: Labs Reviewed by me
[2024-11-25 15:00] VITALS: BP 121/85
[2024-11-25] MEDS: LOVENOX 40 MG SC (16:56)
[2024-11-25] MEDS: REMERON 45 MG PO (21:09)
[2024-11-25] MEDS: DESYREL 100 MG PO (21:09)
[2024-11-25] MEDS: ATIVAN 0.5 MG PO (21:13)
[2024-11-25 23:34] VITALS: BP 122/70
--- NOTE | 2024-11-26 01:40 | PTCARENOTE ---
Pt noted to be 85% on room air w/routine vitals. Denies respiratory complaints. Placed on 2L O2 via NC, Sats 92%. BELT PRESS OPERATOR covering house contacted and electronic orders received. Pt reports occasional O2 use at home.
[2024-11-26] MEDS: ROCEPHIN IV (06:05)
[2024-11-26] MEDS: STERILE WATER FOR INJECTION 10 ML IV (06:06)
--- NOTE | 2024-11-26 06:30 | PTCARENOTE ---
Unable to administer ceftriaxone IVP 2/2 pain. VAT RN contacted. Medication wasted and undone in JAN. Awaiting new IV site.
[2024-11-26] MEDS: DUONEB 3 ML INH ×2 (07:13→11:15)
[2024-11-26 07:38] VITALS: BP 155/96
--- NOTE | 2024-11-26 08:57 | W.PN.HOSP.TC ---
Today's Communication/Plan
-
dc to home
Assessment / Plan
Assessment / Plan
Assessment:
Sepsis POA (fever, tachycardia) from suspected community acquired pneumonia
- dc on Cefdinir/Doxy x 7 total days
Acute COPD exacerbation
- complete 5 days prednisone 40mg
- scheduled and prn nebs
Hx of GERD
Hx of Gastroparesis
- continue PPI BID
- prn Reglan and small meats at home
- OP GS f/u for known hiatal hernia
Essential HTN
- continue FELIX
Anxiety/Depression
- continue BuSpar/Abilify/Proscar/Trazodone
DVT ppx: Lovenox
Code: Full
More than 30 minutes spent in discharge including
Final examination of the patient
Summarizing hospital stay
Instructions for continuing care to all relevant caregivers
Preparation of discharge records, prescriptions, and referral forms
Total time spent (in minutes):41
Anticipated Discharge: Today
Subjective/Interval History
-
Date of Service: November 26, 2024
n/v better controlled on reglan, QTC ok
tolerating Abx
Objective Data
-
Labs:
Laboratory Results
11/26/24
08:45
WBC Pending
Hgb Pending
Hct Pending
Plt Count Pending
Sodium Pending
Potassium Pending
Chloride Pending
Carbon Dioxide Pending
BUN Pending
Creatinine Pending
Glucose Pending
Calcium Pending
Vital Signs:
Vital Signs
Temp Pulse Resp BP Pulse Ox
99.5 F 87 14 155/96 92
11/26/24 07:38 11/26/24 07:38 11/26/24 07:38 11/26/24 07:38 11/26/24 07:38
Physical Exam
-
General: No Apparent Distress
HEENT: Normocephalic and Atraumatic
Respiratory: Negative Wheezes
Cardiac: Regular Rhythm and S1/S2
GI: Soft and Nontender
Genito-urinary: No Costovertebral Tender
Neuro: AO x 3
Hematologic / Lymphatic: No Lymphadenopathy
Psych: Calm
Data Reviewed
-
Total Time Spent with Patient (in minutes): 41
Labs: Labs Reviewed by me
--- NOTE | 2024-11-26 09:04 | W.DS.TRANS ---
DC Summary - Housekeeping Lead
-
Discharge Instructions:
Discharge Diagnosis/Procedures pneumonia, copd flare, gastroparesis symptoms
Diet Regular
Additional Diets smaller meals, throughout the day, with
gastroparesis
Activity No restrictions
Driving Restrictions As prior to admission
Specialty Instructions Weigh Daily
Instructions:
Stand-Alone Forms:
Changes to Home Medications: No
Discharge Medications:
DC Medications w/original date entered in [employer]
immun glob G 10 gram/50 mL(20 %)-pro-IgA 0-50 mcg/mL subcutaneous soln (Hizentra) 10 gm SC TU common variable immunodeficiency 09/30/18
acetaminophen 325 mg tablet (Tylenol) 650 mg PO Q4HPRN PRN mild pain 06/11/23
therapeutic multivitamin 1 tab PO DAILY Supplement 06/11/23
omeprazole 20 mg capsule,delayed release 20 mg PO BID Gastrointestinal Issue 12/27/23
aripiprazole 5 mg tablet (Abilify) 5 mg PO DAILY Mental Health/Anxiety 08/12/24
buspirone 15 mg tablet 15 mg PO BID Mental Health/Anxiety 08/12/24
cholecalciferol (vitamin D3) 50 mcg (2,000 unit) tablet 50 mcg PO DAILY Supplement 08/12/24
fluoxetine 40 mg capsule 40 mg PO DAILY Mental Health/Anxiety 08/12/24
lisinopril 10 mg tablet 10 mg PO DAILY Blood Pressure 08/12/24
trazodone 100 mg tablet 100 mg PO HS Sleep 08/12/24
mirtazapine 15 mg tablet 45 mg PO HS Depression 11/23/24
naltrexone 50 mg tablet 50 mg PO DAILY opioid use disorder 11/23/24
cefdinir 300 mg capsule 300 mg PO BID #8 caps 11/26/24
doxycycline hyclate 100 mg capsule 100 mg PO BID #9 caps 11/26/24
guaifenesin 600 mg tablet, extended release 12 hr 600 mg PO Q12 #20 tabs 11/26/24
ipratropium 0.5 mg-albuterol 3 mg (2.5 mg base)/3 mL nebulization soln 3 ml inhalation R QID PRN shortness of breath or wheezing #90 mL 11/26/24
metoclopramide HCl 5 mg tablet (Reglan) 5 mg PO ACHS PRN nausea and vomiting #30 tabs 11/26/24
prednisone 20 mg tablet 40 mg (2 x 20 mg) PO DAILY #2 tabs 11/26/24
sodium bicarbonate 650 mg tablet 650 mg PO BID #60 tabs 11/26/24
Home Medication Changes
Reglan in place of Zofran for gastroparesis
Pending Results: No
Total time spent discharging patient (in min): 41
[2024-11-26] MEDS: ROCEPHIN 1000 MG IV (09:05)
[2024-11-26] MEDS: MUCINEX 600 MG PO (09:06)
[2024-11-26] MEDS: SODIUM BICARBONATE 650 MG PO (09:06)
[2024-11-26] MEDS: BUSPAR 15 MG PO (09:06)
[2024-11-26] MEDS: PROZAC 40 MG PO (09:06)
[2024-11-26] MEDS: DELTASONE 40 MG PO (09:06)
[2024-11-26] MEDS: ABILIFY 5 MG PO (09:07)
[2024-11-26] MEDS: VIBRAMYCIN 100 MG PO (09:07)
[2024-11-26] MEDS: PROTONIX 40 MG PO (09:07)
[2024-11-26] MEDS: ZESTRIL 10 MG PO (09:07)
[2024-11-26 09:20] LABS: Hematocrit 34.3 % (37.0-47.0); Hemoglobin 11.1 g/dL (12.0-16.0); Mean Corp Hgb Conc. 32.4 g/dL (33.0-37.0); Mean Corpuscular Hgb 28.6 pg (27.0-31.0); Mean Corpuscular Volume 88.4 fL (81.0-99.0); Mean Platelet Volume 10.4 fL (7.4-10.4); Platelet Count 174 10^3/uL (130-400); Red Blood Cell Count 3.88 10^6/uL (4.20-5.40); Red Cell Dist. Width 14.9 % (11.5-14.5); White Blood Cell Count 9.3 10^3/uL (4.8-10.8)
--- NOTE | 2024-11-26 11:39 | CM ---
Pt medically stable for d/c today
Pt seen bedside, agreeable to d/c
Spouse will transport at d/c
IMM reviewed, copy provided to pt
Plan: Home; no needs
[2024-11-26 12:31] VITALS: BP 130/76
== END 2024-11-26 14:00 | disposition home or self-care (01) | DRG 871 ==
LOC: 1 ACUTE 04:01
PROVIDERS: Emergency Medicine; General Practice; ADMITTING PHYSICIAN Internal Medicine; ATTENDING PHYSICIAN Internal Medicine; EMERGENCY PHYSICIAN Student in an Organized Health Care Education/Training Program; FAMILY PHYSICIAN Internal Medicine
DX: A41.9 Sepsis, unspecified organism (principal); J18.9 Pneumonia, unspecified organism; J44.0 Chronic obstructive pulmonary disease with (acute) lower respiratory infection; J45.901 Unspecified asthma with (acute) exacerbation; J44.1 Chronic obstructive pulmonary disease with (acute) exacerbation; Z87.891 Personal history of nicotine dependence; I10 Essential (primary) hypertension; F41.9 Anxiety disorder, unspecified; F32.A Depression, unspecified; K31.84 Gastroparesis
CPT/HCPCS: 71046; 80048; 80053; 84145; 85025; 85027; 87040; 87070; 87449; 87502; 87811; 93005; 94640; 96374; 96375; 99285

== ENCOUNTER 2025-03-06 17:03 | Inpatient (IN) | payer OTHER, SELFPAY ==
[2025-03-06] VITALS (8 sets, daily range): BP systolic 80–160; BP diastolic 59–101; BMI 21.8; BMI 20.8
--- NOTE | 2025-03-06 13:35 | ED.GENMED ---
History of Present Illness
General
Chief Complaint: Abdominal Symptoms
Time Seen by Provider: 03/06/25 12:34
History of Present Illness
History of Present Illness:
64-year-old female with history of gastroparesis presenting for nausea and vomiting. Patient reports symptoms started this morning. She reports she had a cream sauce yesterday evening and believes that triggered her symptoms. Notes that this is
how her gastroparesis presents. Also reports some diarrhea. Reports some general abdominal soreness. Denies fever. Denies chest pain or difficulty breathing. Denies blood in the vomit or the diarrhea. Denies additional acute medical complaints
Past History
Past History
ED Past Medical History: Asthma, Cancer (Breast cancer, diagnosed September 2013 with lumpectomy), COPD, GERD, HTN, Psychiatric (Anxiety, Depression) and Other (Pneumonia, Immune problem, diverticulosis, gastritis, GI bleed, osteoporosis, anemia,
migraines, kyphosis, C-diff, Back pain, Migraines, PNA, Hiatal hernia, Anemia, )
ED Past Surgical History: Gynecological (Breast lumpectomy September 2013), Orthopedic (Left wrist distal radius fracture repair November 2013, Back surgery fusion, Bunionectomy, ) and Other (Cataracts, hiatal hernia surgery, )
Social History
Tobacco: Former smoker
Alcohol: None
Drug: None
Personal:
Living: with family
Employment: Employed
Family History
Family History: Other (Noncontributory)
Phy Exam
Physical Exam
Physical Exam:
General: Well-appearing, no clinical signs of dehydration, nontoxic and in no acute distress
HEENT: protecting airway
Neck: appears supple
CV: Normal heart rate, regular rhythm
Resp: No accessory muscle use, no increased work of breathing, lungs clear to auscultation bilaterally
Abd: Soft and non-distended, no tenderness to palpation
Extremities: No deformities, no swelling, no erythema
Neuro: alert, no focal neurologic deficit
: deferred
Rectal: deferred
Psych: Normal affect
Skin: Intact
Course
Orders/Labs/Results
Orders:
Orders
03/06/25 12:48
0.9% Sodium Chloride 1000 ml [Nss] 1,000 ml IV BOLUS
Ondansetron Injectable [Zofran] 4 mg IV NOW STA
Pantoprazole [Protonix IV] 40 mg IV NOW STA
03/06/25 12:50
Electrocardiogram (*1) Urgent
Reason for Study: Abdominal Pain
EKG- Treatment ONCE
03/06/25 13:56
Complete Blood Count/With Diff Urgent
Comprehensive Metabolic Panel Urgent
Lipase Urgent
03/06/25 15:07
Ondansetron Injectable [Zofran] 4 mg IV NOW STA
03/06/25 15:52
NSS 1000mL Bolus WIDE OPEN 0.9% Sodium Chloride 1000 ml [Nss] 1,000 ml IV BOLUS
Abnormal Lab Results
03/06/25
13:56
RBC 3.81 L 10^6/uL
(4.20-5.40)
Hgb 11.4 L g/dL
(12.0-16.0)
Hct 34.2 L %
(37.0-47.0)
Absolute Neuts (auto) 6.7 H 10^3/uL
(1.4-6.5)
Absolute Lymphs (auto) 0.7 L 10^3/uL
(1.2-3.4)
Neutrophils % 87.6 H %
(42.2-75.2)
Lymphocytes % 9.0 L %
(20.5-51.1)
BUN 36 H mg/dl
(7-17)
Glucose 123 H mg/dl
(70-99)
03/06/25 13:56
03/06/25 13:56
Vital Signs
Initial and Last Documented VS:
Initial Vital Signs
Temp Pulse Resp BP Pulse Ox
98.4 F 67 16 123/90 99
03/06/25 12:04 03/06/25 12:04 03/06/25 12:04 03/06/25 12:04 03/06/25 12:04
Last Documented Vital Signs
Temp Pulse Resp BP Pulse Ox
98.4 F 84 11 152/101 97
03/06/25 12:04 03/06/25 15:45 03/06/25 15:45 03/06/25 15:02 03/06/25 15:45
MDM/Problems Addressed
MDM/Problems Addressed:
64-year-old female with history of gastroparesis presenting for nausea and vomiting. Vital signs on arrival are normal.
On exam patient is resting comfortably, no acute distress, however is actively vomiting and retching. She is nontoxic in appearance. Abdomen is soft and nondistended. Lower suspicion for any serious intra-abdominal process or infection. Do
suspect gastroparesis. She notes that she usually feels better after IV fluids and Zofran. Will obtain laboratory analysis and treat patient therapeutically. Patient does note that while she was vomiting she had an episode of where she passed
out. Suspected vasovagal in quality. EKG obtained, nonischemic, no arrhythmia. Without present concern at this time
15:50 -patient's labs are unremarkable. On reassessment however, patient reports that she is feeling no better despite additional dose of antiemetics. Patient notes that she often has to be admitted for this issue. Plan for admission at this time
for intractable vomiting, with suspected gastritis versus gastroparesis
*Critical Care Note
Total Time (30-74mins, 75-104mins- exclusive of procedures): Not Applicable
ED Attending Note
-
Portions of this chart may have been created with voice recognition software.� Occasional wrong word or��sound alike� substitutions may have occurred due to the inherent limitations of voice recognition software.
Discharge Plan
Departure
Prescriptions:
No Action
Hizentra 10 GM/50 ML solution
10 gm SC TU
Rx Instructions:
SQ weekly immune deficiency Tuesday
acetaminophen [Tylenol] 325 mg Tablet
650 mg PO Q4HPRN PRN (Reason: mild pain)
therapeutic multivitamin Tablet
1 tab PO DAILY
omeprazole 20 mg capsule,delayed release(DR/EC)
20 mg PO BID
aripiprazole [Abilify] 5 mg Tablet
5 mg PO DAILY
fluoxetine 40 mg capsule
40 mg PO DAILY
lisinopril 10 mg tablet
10 mg PO DAILY
buspirone 15 mg tablet
15 mg PO BID
cholecalciferol (vitamin D3) 50 mcg (2,000 unit) Tablet
50 mcg PO DAILY
trazodone 100 mg tablet
100 mg PO HS
naltrexone 50 mg tablet
50 mg PO DAILY
mirtazapine 15 mg tablet
45 mg PO HS
cefdinir 300 mg capsule
300 mg PO BID Qty: 8 0RF
Rx Instructions:
starting 11/27
doxycycline hyclate 100 mg Capsule
100 mg PO BID Qty: 9 0RF
Rx Instructions:
next dose 1/6 PM
ipratropium-albuterol 0.5 mg-3 mg(2.5 mg base)/3 mL Solution For Nebulization
3 ml inhalation R QID PRN (Reason: shortness of breath or wheezing) Qty: 90 0RF
sodium bicarbonate 650 mg Tablet
650 mg PO BID Qty: 60 0RF
prednisone 20 mg Tablet
40 mg PO DAILY Qty: 2 0RF
Rx Instructions:
take on 11/27
guaifenesin 600 mg Tablet Extended Release 12hr
600 mg PO Q12 Qty: 20 0RF
metoclopramide HCl [Reglan] 5 mg tablet
5 mg PO ACHS PRN (Reason: nausea and vomiting) Qty: 30 0RF
Referrals:
James Neal MD [Family Provider] -
Interventions
Interventions:
*Risk Screen - Suicide Last Done: 03/06/25 12:04
*General Assessment Last Done: 03/06/25 13:41
*Neglect/Abuse Screening Last Done: 03/06/25 12:04
*ED- Fall Risk Assessment Last Done: 03/06/25 13:41
*ED COVID-19 Vaccine History Last Done: 03/06/25 13:41
JR-Xsbalc-Cfrfaxpjaw Assessment Last Done: 03/06/25 13:47
Discharge Date and Time
Print Language: SERBIAN
[2025-03-06 14:08] LABS: % Basophils 0.8 % (0-2); % Eosinophils 0.1 % (0-6); % Immature Granulocytes 0.3 % (0-0.5); % Monocytes 2.2 % (1.7-9.3); % Neutrophils 87.6 % (42.2-75.2); Absolute Basophils 0.1 10^3/uL (0-0.2); Absolute Lymphocytes 0.7 10^3/uL (1.2-3.4); Absolute Monocytes 0.2 10^3/uL (0.1-0.6); Absolute Neutrophils 6.7 10^3/uL (1.4-6.5); Hematocrit 34.2 % (37.0-47.0); Hemoglobin 11.4 g/dL (12.0-16.0); Mean Corp Hgb Conc. 33.3 g/dL (33.0-37.0); Mean Corpuscular Hgb 29.9 pg (27.0-31.0); Mean Corpuscular Volume 89.8 fL (81.0-99.0); Mean Platelet Volume 10.3 fL (7.4-10.4); Nucleated Red Blood Cells % 0 %; Platelet Count 197 10^3/uL (130-400); Red Blood Cell Count 3.81 10^6/uL (4.20-5.40); Red Cell Dist. Width 13.8 % (11.5-14.5); White Blood Cell Count 7.7 10^3/uL (4.8-10.8)
[2025-03-06] MEDS: NSS 1000 IV ×3 (14:08→20:57)
[2025-03-06] MEDS: ZOFRAN 4 MG IV ×2 (14:08→15:28)
[2025-03-06] MEDS: PROTONIX IV 40 MG IV (14:08)
[2025-03-06 15:33] LABS: ALT (SGPT) 20 U/L (0-35); AST (SGOT) 30 U/L (14-36); Albumin 4.2 g/dl (3.5-5.0); Alkaline Phosphatase 101 U/L (38-126); Blood Urea Nitrogen 36 mg/dl (7-17); Calcium 9.8 mg/dl (8.4-10.2); Carbon Dioxide 22 mmol/L (22-30); Chloride 106 mmol/L (98-107); Estimated Creatinine Clearance 55 ml/min; Glucose 123 mg/dl (70-99); Lipase 64 U/L (23-300); Potassium 5.1 mmol/L (3.5-5.1); Sodium 139 mmol/L (135-145); Total Bilirubin 0.6 mg/dl (0.2-1.3); Total Protein 6.7 g/dl (6.3-8.2); eGFR > 60.00
--- NOTE | 2025-03-06 16:53 | HPS.HSE ---
Family Physician
-
Family Physician: James Neal
Chief Complaint
-
Intractable nausea and vomiting
History of Present Illness
Patient is a pleasant 64 years old with history of gastroparesis, COPD, asthma, breast cancer, GERD, hypertension, anxiety and depression, who came to the ER with intractable nausea and vomiting associated with diarrhea.
Patient reports that she had a cream sauce yesterday evening which triggered her symptoms.
Patient with history of gastroparesis but no history of diabetes.
Patient denies any chest pain or shortness of breath, complaining of abdominal pain which is mild, had 2 episodes of diarrhea.
Patient denies any fever but chills secondary to nausea and also presyncopal event in the bathroom while she was vomiting.
Similar admission on July 2024.
Medical History
Past Medical History
Past Medical History: Reports Asthma, COPD, GERD, HTN and Psychiatric (Anxiety and depression)
Additional Past Medical History:
Pneumonia, Immune problem, diverticulosis, gastritis, GI bleed, osteoporosis, anemia, migraines, kyphosis, C-diff, Back pain, Migraines, PNA, Hiatal hernia, Anemia
Past Surgical History: Reports Other
Additional Past Surgical History:
Breast lumpectomy September 2013
Left wrist distal radius fracture repair November 2013, Back surgery fusion, Bunionectomy
hiatal hernia surgery
Social History
Tobacco: Former Smoker
Alcohol: None
Drug: None
Personal:
Living: With Family
Employment: Employed
Family History
Family History: Not pertinent
Allergies / Home Medications
Allergies reflects when Allergies were last updated in [facility].
Home Medications with original date entered in [facility]
Allergy/Medication List:
Allergies
Allergy/AdvReac Type Severity Reaction Status Date / Time
No Known Allergies Allergy Verified 03/06/25 12:06
Home Medications
immun glob G 10 gram/50 mL(20 %)-pro-IgA 0-50 mcg/mL subcutaneous soln (Hizentra) 10 gm SC TU common variable immunodeficiency 09/30/18
omeprazole 20 mg capsule,delayed release 20 mg PO BID Gastrointestinal Issue 12/27/23
aripiprazole 5 mg tablet (Abilify) 5 mg PO DAILY Mental Health/Anxiety 08/12/24
buspirone 15 mg tablet 15 mg PO BID Mental Health/Anxiety 08/12/24
fluoxetine 40 mg capsule 40 mg PO DAILY Mental Health/Anxiety 08/12/24
lisinopril 10 mg tablet 10 mg PO DAILY Blood Pressure 08/12/24
trazodone 100 mg tablet 100 mg PO HS Sleep 08/12/24
mirtazapine 15 mg tablet 45 mg PO HS Depression 11/23/24
naltrexone 50 mg tablet 50 mg PO DAILY opioid use disorder 11/23/24
albuterol sulfate 90 mcg/actuation aerosol inhaler 1 puff inhalation R Q4HPRN PRN sob 03/06/25
Review of Systems
-
A 12 point ROS was completed and negative except as noted: Yes
Constitutional: Reports Fatigue; Denies Fever, Weight Gain, Weight Loss or Sleep Disturbance
EENT: Denies Tearing, Sore Throat, Mouth Pain, Mouth Swelling or Runny Nose
Respiratory: Denies Cough, Hemoptysis or Trouble Breathing
Cardiac: Reports Syncope; Denies Chest Pain, Diaphoresis or Palpitations
Abdomen/GI: Reports Abdominal Pain, Nausea, Vomiting and Diarrhea; Denies Constipated, Bloody Stools or Black Stools
: Denies Dysuria, Frequency, Flank Pain, Incontinence, Difficulty Voiding, Urgency, Bleeding or Dark Urine
Musculoskeletal: Denies Joint Pain, Joint Swelling, Muscle Pain, Muscle Stiffness or Edema
Skin: Denies Itching or Rash
Neurological: Denies Dizzy, Headache, Weakness or Numbness
Endocrine: Denies Polyuria, Polydipsia or Temp Intolerance
Hematologic/Lymphatic: Denies Bleeding, Swollen Glands or Bruising
Psych: Reports Calm; Denies Depression, Anxiety or Panic Disorder
Physical Exam
Vital Signs
Vital Signs
Temp Pulse Resp BP Pulse Ox
98.4 F 84 11 152/101 97
03/06/25 12:04 03/06/25 15:45 03/06/25 15:45 03/06/25 15:02 03/06/25 15:45
Physical Exam
General: Well Developed, Well Nourished, No Apparent Distress, Comfortable and Good Appetite; No Pain, Chills or Sweats
HEENT: NormoCephalic, Moist mucous membranes, Atraumatic, Good Dentition, PERRLA, Nose Appears Normal and Ears Appear Normal
Respiratory: Clear
Cardiac: S1/S2 and Regular Rhythm
Breast: Deferred by me
GI: Soft, Non Distended, Normal Bowel Sounds and Tender
Genito-urinary: Deferred by me
Musculoskeletal: No Clubbing, No Cyanosis and No Edema
Skin: Warm; No Rash, Jaundice, Ulcers, Lesions or Decubitus Ulcers
Neuro: Awake, Alert, Oriented, AO x 3, No Motor Deficits, Nonfocal/grossly intact and Cranial Nerves Intact
Hematologic/Lymphatic: No Lymphadenopathy
Psych: Calm
Laboratory Results
-
03/06/25 13:56
03/06/25 13:56
Laboratory Results
Total Bilirubin 0.6 mg/dl (0.2-1.3) 03/06/25 13:56
AST 30 U/L (14-36) 03/06/25 13:56
ALT 20 U/L (0-35) 03/06/25 13:56
Alkaline Phosphatase 101 U/L (38-126) 03/06/25 13:56
Lipase 64 U/L (23-300) 03/06/25 13:56
Data Reviewed
-
Diagnostic Radiology: Report Reviewed by me
CT Scan: Report Reviewed by me
Medical Tests (Nuc Med, Echo, EKG etc): Report Reviewed by me
Lab Data: Labs Reviewed by me
Old Records: Reviewed
Impression/Plan
-
IMPRESSION:
This is a 64-year-old with past medical history significant for COPD, GERD, hypogammaglobulinemia, anemia, and history of breast cancer in remission who presents to the emergency department with intractable nausea and vomiting, diarrhea after she
had a cream sauce yesterday evening and believes that triggered her symptoms.
Assessment/plan:
Intractable nausea and vomiting.
Possible secondary to known gastroparesis.
Associated possible diarrhea.
Patient was here on July 2024 with similar symptoms and CT abdomen pelvis done back came back normal.
It is reasonable to repeat CT abdomen pelvis to rule out small bowel obstruction, cholecystitis or appendicitis.
Patient does not have focal localized pain but vague diffuse mild abdominal pain
Zofran as needed, continue Reglan at night, pantoprazole IV
N.p.o. diet today and clear liquid starting tomorrow.
COPD, no evidence of acute exacerbation.
Continue inhalers
History of hypertension
Continue home meds
History of anxiety/depression.
Continue home med
Added 1 dose of Ativan
History of GERD.
IV pantoprazole
CODE STATUS: Full code
DVT prophylaxis: Lovenox
Diet: NPO
Total time spent on today's encounter was 75 minutes which included time spent in counseling the patient/family regarding diagnosis and treatment plan as listed above, goals of care, and symptom management. Case was discussed with nursing staff,
specialists, and care coordinators/case management. All labs and imaging personally reviewed by me. Remainder the time spent in detailed review of previous records, lab data, imaging, and other medical provider documentation.
[2025-03-06] MEDS: ATIVAN 0.5 MG IV (17:07)
--- NOTE | 2025-03-06 20:00 | PTCARENOTE ---
Patient arrived from ED, AAO x 4. VSS. NSR, with PVCs, on telemetry. IV fluids started at 100 ml/hr. Patient complaining of nausea-states that Zofran, given in the ED, was effective. OOB x 1 assist. No prior falls, within the last 3-6 months.
Patient denies pain. Last BM 03/06--patient states she had two episodes of diarrhea. Skin intact. Patient oriented to her room. Bed in lowest position. All patient needs met. Call sanchez and personal belongings within reach.
[2025-03-06] MEDS: LOVENOX 40 MG SC (20:57)
[2025-03-06] MEDS: BUSPAR 15 MG PO (20:58)
[2025-03-06] MEDS: REMERON 45 MG PO (21:44)
[2025-03-06] MEDS: DESYREL 100 MG PO (21:44)
[2025-03-07 03:10] VITALS: BP 109/70
[2025-03-07] MEDS: NSS 1000 IV (05:05)
[2025-03-07 07:00] VITALS: BP 127/70
[2025-03-07 08:00] LABS: Hematocrit 29.8 % (37.0-47.0); Hemoglobin 9.7 g/dL (12.0-16.0); Mean Corp Hgb Conc. 32.6 g/dL (33.0-37.0); Mean Corpuscular Hgb 29.5 pg (27.0-31.0); Mean Corpuscular Volume 90.6 fL (81.0-99.0); Mean Platelet Volume 10.9 fL (7.4-10.4); Platelet Count 163 10^3/uL (130-400); Red Blood Cell Count 3.29 10^6/uL (4.20-5.40); Red Cell Dist. Width 14.2 % (11.5-14.5); White Blood Cell Count 6.1 10^3/uL (4.8-10.8)
[2025-03-07 08:36] LABS: Blood Urea Nitrogen 22 mg/dl (7-17); Calcium 8.9 mg/dl (8.4-10.2); Carbon Dioxide 20 mmol/L (22-30); Chloride 112 mmol/L (98-107); Estimated Creatinine Clearance 54 ml/min; Glucose 86 mg/dl (70-99); Magnesium 1.8 mg/dl (1.6-2.3); Sodium 141 mmol/L (135-145); eGFR > 60.00
[2025-03-07] MEDS: PROTONIX IV 40 MG IV (10:27)
[2025-03-07] MEDS: FLUSH (NSS) 1 FLUSH IV (10:28)
[2025-03-07] MEDS: PROZAC 40 MG PO (10:34)
[2025-03-07] MEDS: BUSPAR 15 MG PO (10:35)
[2025-03-07] MEDS: ABILIFY 5 MG PO (10:35)
[2025-03-07] MEDS: ZESTRIL 10 MG PO (10:35)
[2025-03-07 11:00] VITALS: BP 100/65
[2025-03-07] MEDS: REVIA 50 MG PO (12:02)
--- NOTE | 2025-03-07 12:10 | CM ---
Addendum entered by Leslye Beltran 03/07/25 13:01:
Patient seen again, for discharge today. IMM provided, verbally agreeable, placed in chart.
Original Note:
CM reviewed chart, patient seen bedside, initial assessment completed. Patient resides with her spouse in a one level home ([facility]), no steps to enter. Patient is independent with ADLs/ADL, denies use of DME, VN, or SNF. Patient confirms PCP James
Val, pharmacy [facility], confirms prescription coverage. Patient reports her will provide transportation home. CM will continue to follow for all discharge planning needs.
Plan; home no needs likely.
--- NOTE | 2025-03-07 12:15 | W.PN.HOSP.TC ---
Today's Communication/Plan
-
Discharge today if tolerates lunch
Assessment / Plan
Assessment / Plan
IMPRESSION:
This is a 64-year-old with past medical history significant for COPD, GERD, hypogammaglobulinemia, anemia, and history of breast cancer in remission who presents to the emergency department with intractable nausea and vomiting, diarrhea after she
had a cream sauce yesterday evening and believes that triggered her symptoms.
Tolerating liquid diet, advance it to low residual.
Assessment/plan:
Intractable nausea and vomiting.
Possible secondary to known gastroparesis.
Associated possible diarrhea.
Patient was here on July 2024 with similar symptoms and CT abdomen pelvis done back came back normal.
It is reasonable to repeat CT abdomen pelvis to rule out small bowel obstruction, cholecystitis or appendicitis.
Patient does not have focal localized pain but vague diffuse mild abdominal pain
Zofran as needed, continue Reglan at night, pantoprazole IV
N.p.o. diet today and clear liquid starting tomorrow.
03/07
Tolerating clear liquid diet.
Advance to low residual.
Discharge if tolerates low residual.
COPD, no evidence of acute exacerbation.
Continue inhalers
History of hypertension
Continue home meds
History of anxiety/depression.
Continue home med
Added 1 dose of Ativan
History of GERD.
IV pantoprazole
CODE STATUS: Full code
DVT prophylaxis: Lovenox
Diet: low residue
Total time spent on today's encounter was 55 minutes which included time spent in counseling the patient/family regarding diagnosis and treatment plan as listed above, goals of care, and symptom management. Case was discussed with nursing staff,
specialists, and care coordinators/case management. All labs and imaging personally reviewed by me. Remainder the time spent in detailed review of previous records, lab data, imaging, and other medical provider documentation.
Anticipated Discharge: Today
Subjective/Interval History
-
Date of Service: March 07, 2025
Patient seen and examined at bedside, denies any chest pain or shortness of breath, no abdominal pain, no nausea, no vomiting, no diarrhea or constipation.
Tolerating clear liquid breakfast, will discharge home if tolerates lunch.
Objective Data
-
Labs:
Laboratory Results
03/07/25
07:13
WBC 6.1
Hgb 9.7 L
Hct 29.8 L
Plt Count 163
Sodium 141
Potassium 4.0
Chloride 112 H
Carbon Dioxide 20 L
BUN 22 H
Creatinine 1.0
Glucose 86
Calcium 8.9
Vital Signs:
Vital Signs
Temp Pulse Resp BP Pulse Ox
98.4 F 74 18 100/65 94
03/07/25 11:00 03/07/25 11:00 03/07/25 11:00 03/07/25 11:00 03/07/25 11:00
I&O
03/06/25 03/07/25 03/08/25
06:59 06:59 06:59
Intake Total 939 / 939
Balance 939 / 939
Physical Exam
-
General: Well Developed, Well Nourished, No Apparent Distress and Comfortable
HEENT: Normocephalic, Atraumatic, Moist Mucous Membranes, No Ptosis, PERRLA and Nose Appears Normal
Respiratory: Clear to Auscultation and Non Labored Respirations
Cardiac: Regular Rhythm and S1/S2
Breast: Deferred by me
GI: Soft, Nontender, Nondistended and Normal Bowel Sounds
Genito-urinary: No Costovertebral Tender
Musculoskeletal: No Clubbing, No Cyanosis and No Edema
Skin: Warm
Neuro: Awake, Alert, Oriented, AO x 3 and No Motor Deficits
Psych: Calm
Data Reviewed
-
Diagnostic Radiology: Image personally visualized and interpreted and Report Reviewed by me
CT Scan: Image personally visualized and interpreted and Report Reviewed by me
Ultrasound: Image personally visualized and interpreted and Report Reviewed by me
MRI: Image personally visualized and interpreted and Report Reviewed by me
Medical Tests (Nuc Med, Echo etc): Image personally visualized and interpreted and Report Reviewed by me
Labs: Labs Reviewed by me
Old Records: Reviewed
--- NOTE | 2025-03-07 12:29 | W.DCSUMMARY ---
Discharge Summary
Discharge Data
Date of Admission: 03/06/25
Date of Discharge: 03/07/25
-
Pending Results: No
Hospital Course
Hospital course
This is a 64-year-old with past medical history significant for COPD, GERD, hypogammaglobulinemia, anemia, and history of breast cancer in remission who presents to the emergency department with intractable nausea and vomiting, diarrhea after she
had a cream sauce yesterday evening and believes that triggered her symptoms.
Tolerating liquid diet, advance it to low residual.
[facility]
Intractable nausea and vomiting.
Possible secondary to known gastroparesis.
Associated possible diarrhea.
Patient was here on July 2024 with similar symptoms and CT abdomen pelvis done back came back normal.
It is reasonable to repeat CT abdomen pelvis to rule out small bowel obstruction, cholecystitis or appendicitis.
Patient does not have focal localized pain but vague diffuse mild abdominal pain
Zofran as needed, continue Reglan at night, pantoprazole IV
N.p.o. diet today and clear liquid starting tomorrow.
03/07
Tolerating clear liquid diet.
Advance to low residual.
Discharge if tolerates low residual.
CT abdomen/pelvis shows :
No acute findings in the abdomen or pelvis.
Colonic diverticulosis. Mild colonic stool burden.
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
Small hiatal hernia
COPD, no evidence of acute exacerbation.
Continue inhalers
History of hypertension
Continue home meds
History of anxiety/depression.
Continue home med
Added 1 dose of Ativan
History of GERD.
IV pantoprazole-resume Pepcid on discharge
CODE STATUS: Full code
DVT prophylaxis: Lovenox
Diet: low residue
Total time spent on today's encounter was 40 minutes which included time spent in counseling the patient/family regarding diagnosis and treatment plan as listed above, goals of care, and symptom management. Case was discussed with nursing staff,
specialists, and care coordinators/case management. All labs and imaging personally reviewed by me. Remainder the time spent in detailed review of previous records, lab data, imaging, and other medical provider documentation.
Anticipated Discharge: Today
Discharge Plan
-
Patient Disposition: Home (Routine Discharge)
Discharge Diagnosis/Procedures: Gastroparesis
Condition: Good
Diet: As tolerated and Low Residue
Activity: As tolerated
Referrals:
James Neal MD [Family Provider] -
Prescriptions:
New
ondansetron 4 mg tablet,disintegrating
4 mg PO TID PRN (Reason: nausea and vomiting) 10 Days Qty: 30 0RF
Continued
Hizentra 10 GM/50 ML solution
10 gm SC
Rx Instructions:
SQ weekly immune deficiency Tuesday
omeprazole 20 mg capsule,delayed release(DR/EC)
20 mg PO BID
aripiprazole [Abilify] 5 mg Tablet
5 mg PO DAILY
fluoxetine 40 mg capsule
40 mg PO DAILY
lisinopril 10 mg tablet
10 mg PO DAILY
buspirone 15 mg tablet
15 mg PO BID
trazodone 100 mg tablet
100 mg PO HS
naltrexone 50 mg tablet
50 mg PO DAILY
mirtazapine 15 mg tablet
45 mg PO HS
albuterol sulfate 90 mcg/actuation Hfa Aerosol Inhaler
1 puff INHALATION R Q4HPRN PRN (Reason: sob)
Discharge Orders:
Discharge Patient (As Directed); Ordered 03/07/25
Ordered By: Napoleon Malcolm
Discharge Date and Time
Print Language: SERBIAN
[2025-03-07 15:00] VITALS: BP 107/70
== END 2025-03-07 16:53 | disposition home or self-care (01) | DRG 392 ==
LOC: 4 WEST ACU 17:03
PROVIDERS: ADMITTING PHYSICIAN General Practice; EMERGENCY PHYSICIAN Student in an Organized Health Care Education/Training Program; FAMILY PHYSICIAN Internal Medicine
DX: K31.84 Gastroparesis (principal); K57.30 Diverticulosis of large intestine without perforation or abscess without bleeding; D18.03 Hemangioma of intra-abdominal structures; K44.9 Diaphragmatic hernia without obstruction or gangrene; J44.9 Chronic obstructive pulmonary disease, unspecified; I10 Essential (primary) hypertension; F32.A Depression, unspecified; F41.9 Anxiety disorder, unspecified; K21.9 Gastro-esophageal reflux disease without esophagitis; Z85.3 Personal history of malignant neoplasm of breast
CPT/HCPCS: 74177; 80048; 80053; 83690; 83735; 85025; 85027; 93005; 96374; 96375; 96376; 99284; Q9967

== ENCOUNTER 2025-03-10 07:09 | Inpatient (IN) | payer OTHER, SELFPAY ==
[2025-03-08 11:35] VITALS: BP 143/115
--- NOTE | 2025-03-08 11:49 | ED.GENMED ---
History of Present Illness
General
Chief Complaint: Abdominal Symptoms
Source: patient
Exam Limitations: none
Time Seen by Provider: 03/08/25 11:49
Nursing documentation reviewed up to this point in time: agreed with
History of Present Illness
History of Present Illness:
Patient is a 64-year-old female who presents to the ER for evaluation of continued nausea and vomiting. Patient has a history of COPD gastroparesis reflux anemia breast cancer in remission. Patient was just discharged in the hospital yesterday(she
reports around 4 PM) she was admitted for 1 night and diagnosis were thought to be gastroparesis. She got home and felt fine but woke up this morning vomiting again.
She reports she has a specialist at [facility] however prior to yesterday has not had an episode for the past year
Past History
Past History
ED Past Medical History: Asthma, Cancer (Breast cancer, diagnosed September 2013 with lumpectomy), COPD, GERD, HTN, Psychiatric (Anxiety, Depression) and Other (Pneumonia, Immune problem, diverticulosis, gastritis, GI bleed, osteoporosis, anemia,
migraines, kyphosis, C-diff, Back pain, Migraines, PNA, Hiatal hernia, Anemia, )
ED Past Surgical History: Gynecological (Breast lumpectomy September 2013), Orthopedic (Left wrist distal radius fracture repair November 2013, Back surgery fusion, Bunionectomy, ) and Other (Cataracts, hiatal hernia surgery, )
Social History
Tobacco: Former smoker
Alcohol: None
Drug: None
Personal:
Living: with family
Employment: Employed
Family History
Family History: Other (Noncontributory)
Review of Systems
Review of Systems
Allergies reviewed?: Yes
All Other Systems: ROS reviewed and negative except as documented in HPI and ROS
Constitutional: Reports no symptoms; Denies fever, fatigue or chills
Respiratory: Reports no symptoms
Cardiac: Reports no symptoms
ABD/GI: Reports nausea and vomiting; Denies diarrhea
: Reports no symptoms
Musculoskeletal: Reports no symptoms
Skin: Reports no symptoms
Neurological: Reports no symptoms
Psychiatric: Reports no symptoms
Phy Exam
General Physical Exam
General Presentation: no apparent distress
General age: appears stated age
General Skin: warm and dry
General Habitus: normal
General Mental: alert
Cardiovascular Exam
Cardiovascular Exam: regular rate/rhythm, no murmur and normal peripheral pulses
Pulmonary Exam
Pulmonary Exam: lungs clear and no respiratory distress
Neurological Exam
Neurological Exam: alert and oriented x3
Musculoskeletal Exam
Musculoskeletal Exam: full ROM
Skin Exam
Skin Exam: normal color and warm/dry
Psychiatric Exam
Psychiatric Exam: normal mood/affect
Course
Orders/Labs/Results
Orders:
Orders
03/08/25 11:56
IV Insert/Care/Rem.- Treatment PRN
0.9% Sodium Chloride 1000 ml [Nss] 1,000 ml IV BOLUS
Ondansetron Injectable [Zofran] 4 mg IV NOW STA
03/08/25 13:14
Complete Blood Count/With Diff Urgent
Comprehensive Metabolic Panel Urgent
Lipase Urgent
03/08/25 13:52
Ondansetron Injectable [Zofran] 4 mg IV NOW STA
03/08/25 14:38
Lorazepam [Ativan] 1 mg IV NOW STA
Metoclopramide [Reglan] 10 mg IV NOW STA
03/08/25 14:53
Famotidine [Pepcid] 20 mg IV NOW STA
03/08/25 14:59
EKG [Electrocardiogram (*1)] Urgent
Reason for Study: QTc Monitoring
03/08/25 Dinner
Clear Liquid
At Your Request: Full Participation
Six Small Meals: Yes
03/08/25 15:21
Admit/Transfer Patient As Directed
Co-Sign Provider:
Level of Care: Observation services
Assign to:: Medical/Surgical
Physician / Group: Bela Dixon
Diagnosis: intractable nausea and vomiting, gastroparesis
03/08/25 15:22
PRN Pain Medication Management As Directed
May give lesser potent ordered pain med per pt: Yes
preference::
Protocol:: Medication orders for pain may be administered in a
manner that supports deferring to patient preference
when the pt is:
- Requesting an ordered lesser potent pain medication.
Least to most potent pain medications are defined
as: acetaminophen < NSAID < tramadol < opioids
(morphine, oxycodone, hydromorphone).
- Requesting a lesser dose of the same medication IF
ORDERED.
- Requesting a less intrusive route of administration
if both routes are prescribed by the provider (PO <
IV).
03/08/25 15:24
Code Status As Directed
Resuscitation Status: Full Code
03/08/25 18:16
0.9% Sodium Chloride 1000 ml [Nss] 1,000 ml IV 100 mls/hr
Acetaminophen [Tylenol] 650 mg PO Q4HPRN PRN
Albuterol [ProAIR HFA INHALER] 1 puff INH R Q4HPRN PRN
Enoxaparin Sodium [Lovenox] 40 mg SC QPM
Lorazepam [Ativan] 1 mg IV BIDPRN PRN
Metoclopramide [Reglan] 10 mg IV Q6HPRN PRN
Ondansetron Injectable [Zofran] 4 mg IV Q6HPRN PRN
03/08/25 18:16
Activity As Directed
Activity Level: Ambulate
Vital Signs As Directed
Frequency: Per unit guidelines
Weight As Directed
Frequency: Once
Comment: on admission
DX Deep Vein Thrombosis Video Routine
03/08/25 20:00
Buspirone [Buspar] 15 mg PO BID
03/08/25 20:27
Urinalysis Reflex To Culture Urgent
Date Specimen was Collected: 03/08/25
Time Specimen was Collected: 20:21
Comment: clean catch
03/08/25 22:00
Mirtazapine [Remeron] 45 mg PO HS
Trazodone [Desyrel] 100 mg PO HS
03/09/25 07:52
Basic Metabolic Panel IN AM
03/09/25 08:00
ARIPiprazole [Abilify] 5 mg PO DAILY
Fluoxetine HCl [Prozac] 40 mg PO DAILY
Lisinopril [Zestril] 10 mg PO DAILY
Naltrexone HCl [Revia] 50 mg PO DAILY
Abnormal Lab Results
03/08/25
13:14
RBC 3.92 L 10^6/uL
(4.20-5.40)
Hgb 11.4 L g/dL
(12.0-16.0)
Hct 35.1 L %
(37.0-47.0)
MCHC 32.5 L g/dL
(33.0-37.0)
Absolute Neuts (auto) 6.6 H 10^3/uL
(1.4-6.5)
Absolute Lymphs (auto) 0.7 L 10^3/uL
(1.2-3.4)
Neutrophils % 84.3 H %
(42.2-75.2)
Lymphocytes % 9.1 L %
(20.5-51.1)
Chloride 108 H mmol/L
(98-107)
Carbon Dioxide 20 L mmol/L
(22-30)
BUN 21 H mg/dl
(7-17)
Glucose 120 H mg/dl
(70-99)
03/08/25 13:14
03/08/25 13:14
Vital Signs
Initial and Last Documented VS:
Initial Vital Signs
Temp Pulse Resp BP Pulse Ox
97.5 F 95 18 143/115 97
03/08/25 11:35 03/08/25 11:35 03/08/25 11:35 03/08/25 11:35 03/08/25 11:35
Last Documented Vital Signs
Temp Pulse Resp BP Pulse Ox
99.4 F 103 14 138/98 93
03/09/25 15:16 03/09/25 15:16 03/09/25 15:16 03/09/25 15:16 03/09/25 15:16
MDM/Problems Addressed
Differential Diagnosis Includes:
Not limited to gastroparesis
MDM/Problems Addressed:
Patient is a 64-year-old female with gastroparesis just discharged from the hospital last night complains of continued vomiting. She has a history of gastroparesis and woke up this morning vomiting. Patient received Zofran for nausea and fluids
however after several doses of Zofran persistent nausea. She is not feeling well. She reports Reglan worked for her in the past she is very anxious we will give a dose of Reglan and Ativan now. She does not feel that she is going to be able to go
home and is been persistently nauseous here will require readmission.
Chronic conditions affecting care:
Gastroparesis
*Pulse Oximetry
Patient hypoxic: no
*Critical Care Note
Total Time (30-74mins, 75-104mins- exclusive of procedures): Not Applicable
Data Reviewed
Review of Other/Old Records Reveals: Labs and Discharge Summary
Source: patient
ED Attending Note
-
Portions of this chart may have been created with voice recognition software.� Occasional wrong word or��sound alike� substitutions may have occurred due to the inherent limitations of voice recognition software.
Discharge Plan
Departure
Patient Disposition: Admit
Date of Disposition: 03/08/25
Time of Disposition: 14:50
Admit to: Med/Surg
Admit to doctor: hospitalist
Presentation/result/management discussed w/ accepting MD/DO: Hospitalist
Patient with high blood pressure during this ER visit?: Yes
Condition: Fair
Covid-19: Not Applicable
Discharge Problem:
Nausea and vomiting
Interventions
Interventions:
*Risk Screen - Suicide Last Done: 03/08/25 11:37
*General Assessment Last Done: 03/08/25 11:37
*Neglect/Abuse Screening Last Done: 03/08/25 11:37
*ED- Fall Risk Assessment Last Done: 03/08/25 11:37
*ED COVID-19 Vaccine History Last Done: 03/08/25 11:37
*Nursing Disposition Last Done: 03/08/25 18:17
HR-Vdaldh-Fpfenzpalc Assessment Last Done: 03/08/25 12:45
Discharge Date and Time
Discharge Date/Time: 03/08/25 18:17
--- NOTE | 2025-03-08 11:57 | EDRN ---
Kaitlin Triana STEEL CHECKER was in to see pt and requested IV access and labs by IV VAT nurse who was paged at this time.
--- NOTE | 2025-03-08 11:58 | EDRN ---
IV Vat RN called back and is aware of needs.
--- NOTE | 2025-03-08 11:59 | EDRN ---
Pt arrives for N/V which started at 7:00 am and 2 bouts of diarrhea. Pt states she has epigastric pain at 9/10.
--- NOTE | 2025-03-08 12:12 | EDRN ---
Jared VAZQUEZ VAT RN in room w/pt at this time.
--- NOTE | 2025-03-08 12:31 | EDRN ---
PAVER INSTALLER able to get access but unable to draw labs.
[2025-03-08] MEDS: NSS 1000 IV ×2 (12:32→18:40)
[2025-03-08] MEDS: ZOFRAN 4 MG IV ×3 (12:32→20:42)
--- NOTE | 2025-03-08 12:35 | EDRN ---
IV team in room to attempt IV access and had 3 attempts, no ability to draw labs and IV was #24 in L hand, At this time this IV was found occluded and Iris ED RN was asked to attempt US IV access.
--- NOTE | 2025-03-08 12:38 | EDRN ---
After connecting IVF initially IVF infusing then after zofran given stopped and now does not flush. IV team Malu called and said the INTERNET CONSULTANT needs to try for IV access.
[2025-03-08 13:21] LABS: % Basophils 0.5 % (0-2); % Eosinophils 0.3 % (0-6); % Immature Granulocytes 0.4 % (0-0.5); % Lymphocytes 9.1 % (20.5-51.1); % Monocytes 5.4 % (1.7-9.3); % Neutrophils 84.3 % (42.2-75.2); Absolute Lymphocytes 0.7 10^3/uL (1.2-3.4); Absolute Monocytes 0.4 10^3/uL (0.1-0.6); Absolute Neutrophils 6.6 10^3/uL (1.4-6.5); Hematocrit 35.1 % (37.0-47.0); Hemoglobin 11.4 g/dL (12.0-16.0); Mean Corp Hgb Conc. 32.5 g/dL (33.0-37.0); Mean Corpuscular Hgb 29.1 pg (27.0-31.0); Mean Corpuscular Volume 89.5 fL (81.0-99.0); Nucleated Red Blood Cells % 0 %; Platelet Count 179 10^3/uL (130-400); Red Blood Cell Count 3.92 10^6/uL (4.20-5.40); Red Cell Dist. Width 13.7 % (11.5-14.5); White Blood Cell Count 7.8 10^3/uL (4.8-10.8)
[2025-03-08 13:22] VITALS: BP 151/90
[2025-03-08 13:42] LABS: ALT (SGPT) 19 U/L (0-35); AST (SGOT) 28 U/L (14-36); Albumin 4.6 g/dl (3.5-5.0); Alkaline Phosphatase 109 U/L (38-126); Blood Urea Nitrogen 21 mg/dl (7-17); Calcium 9.9 mg/dl (8.4-10.2); Carbon Dioxide 20 mmol/L (22-30); Chloride 108 mmol/L (98-107); Glucose 120 mg/dl (70-99); Lipase 69 U/L (23-300); Potassium 4.1 mmol/L (3.5-5.1); Sodium 141 mmol/L (135-145); Total Bilirubin 0.7 mg/dl (0.2-1.3); Total Protein 6.7 g/dl (6.3-8.2); eGFR > 60.00
--- NOTE | 2025-03-08 14:35 | EDRN ---
Pt was administered second dose of zofran for continued nausea.
--- NOTE | 2025-03-08 14:36 | EDRN ---
Pt asking for ativan that she states she has been administered for this in the past and it greatly helped w/ her symptoms.
[2025-03-08 14:40] VITALS: BP 135/102
--- NOTE | 2025-03-08 14:54 | HPS.HSE ---
Family Physician
-
Family Physician: James Neal
Chief Complaint
-
nausea and vomiting
History of Present Illness
Patient is a 64-year-old female with past medical history significant for asthma, COPD, GERD, hypertension and anxiety/depression presented to [facility] ED for evaluation of continued nausea and vomiting. Patient with recent hospitalization for pneumonia
discharged yesterday, 03/08/2025. Patient with history of gastroparesis and believed episode started during hospital stay, she was discharged home around 1600 yesterday and she stated she did well until this morning. Patient states she has had
chills, no recorded fevers and diarrhea. Denies any cough, shortness of breath or urinary symptoms.
Medical History
Past Medical History
Past Medical History: Reports Other
Additional Past Medical History:
asthma
COPD
GERD
hypertension
anxiety/depression
Pneumonia
Immune problem
diverticulosis
gastritis
GI bleed
osteoporosis
anemia
migraines
kyphosis
C-diff
Back pain
Migraines
Hiatal hernia
Hx breast cancer
Past Surgical History: Reports Other
Additional Past Surgical History:
Breast lumpectomy September 2013
Left wrist distal radius fracture repair November 2013, Back surgery fusion, Bunionectomy
hiatal hernia surgery
Social History
Tobacco: Former Smoker
Alcohol: None
Drug: None
Personal:
Living: With Family
Employment: Employed
Family History
Family History: Not pertinent
Allergies / Home Medications
Allergies reflects when Allergies were last updated in [facility].
Home Medications with original date entered in [facility]
Allergy/Medication List:
Allergies
Allergy/AdvReac Type Severity Reaction Status Date / Time
No Known Allergies Allergy Verified 03/08/25 11:35
Home Medications
immun glob G 10 gram/50 mL(20 %)-pro-IgA 0-50 mcg/mL subcutaneous soln (Hizentra) 10 gm SC TU common variable immunodeficiency 09/30/18
omeprazole 20 mg capsule,delayed release 20 mg PO BID Gastrointestinal Issue 12/27/23
aripiprazole 5 mg tablet (Abilify) 5 mg PO DAILY Mental Health/Anxiety 08/12/24
buspirone 15 mg tablet 15 mg PO BID Mental Health/Anxiety 08/12/24
fluoxetine 40 mg capsule 40 mg PO DAILY Mental Health/Anxiety 08/12/24
lisinopril 10 mg tablet 10 mg PO DAILY Blood Pressure 08/12/24
trazodone 100 mg tablet 100 mg PO HS Sleep 08/12/24
mirtazapine 15 mg tablet 45 mg PO HS Depression 11/23/24
naltrexone 50 mg tablet 50 mg PO DAILY opioid use disorder 11/23/24
albuterol sulfate 90 mcg/actuation aerosol inhaler 1 puff inhalation R Q4HPRN PRN sob 03/06/25
ondansetron 4 mg disintegrating tablet 4 mg PO TID PRN nausea and vomiting 10 days #30 tabs 03/07/25
docusate sodium 100 mg capsule (Colace) 100 mg PO DAILYPRN PRN constipation 03/08/25
Review of Systems
-
History Source: Patient
Constitutional: Reports Chills
EENT: Reports No Symptoms
Respiratory: Reports No Symptoms
Cardiac: Reports No Symptoms
Abdomen/GI: Reports Nausea, Vomiting, Diarrhea and Anorexia
: Reports No Symptoms
Musculoskeletal: Reports No Symptoms
Skin: Reports No Symptoms
Neurological: Reports No Symptoms
Endocrine: Reports No Symptoms
Hematologic/Lymphatic: Reports No Symptoms
Psych: Reports No Symptoms
Physical Exam
Vital Signs
Vital Signs
Temp Pulse Resp BP Pulse Ox
97.5 F 80 16 151/90 100
03/08/25 11:35 03/08/25 13:22 03/08/25 13:22 03/08/25 13:22 03/08/25 13:22
Physical Exam
General: Well Developed, Well Nourished and Conversant
HEENT: NormoCephalic, Moist mucous membranes, Atraumatic, [place] Conjunctivae, Nose Appears Normal and Ears Appear Normal
Respiratory: Clear
Cardiac: S1/S2 and Regular Rhythm; No Murmur or Rub
Breast: Deferred by me
GI: Soft, Non Distended and Normal Bowel Sounds; No Organomegaly
Rectal: Deferred by Provider
Genito-urinary: Deferred by me
Musculoskeletal: No Clubbing, No Cyanosis and No Edema
Skin: Warm and IV/Catheter Site
Neuro: Awake, Alert, AO x 3 and Nonfocal/grossly intact
Psych: Calm and Intact Judgment/Insight
Laboratory Results
-
03/08/25 13:14
03/08/25 13:14
Laboratory Results
Total Bilirubin 0.7 mg/dl (0.2-1.3) 03/08/25 13:14
AST 28 U/L (14-36) 03/08/25 13:14
ALT 19 U/L (0-35) 03/08/25 13:14
Alkaline Phosphatase 109 U/L (38-126) 03/08/25 13:14
Lipase 69 U/L (23-300) 03/08/25 13:14
Data Reviewed
-
Lab Data: Labs Reviewed by me
Impression/Plan
-
IMPRESSION/PLAN:
#intractable nausea and vomiting likely 2/2 gastroparesis
persistent nausea and vomiting despite multiple dose Zofran
- Admit to med/surg
- IV Zofran, Reglan and Ativan
- Clears
- IVF
#asthma
#COPD
- continue albuterol
#GERD
- hold omeprazole
- IV Protonix
#hypertension
- continue lisinopril
#anxiety/depression
- continue aripiprazole, buspirone, fluoxetine, mirtazapine and trazadone
Code status: full code
DVT prophylaxis: Lovenox sq
--- NOTE | 2025-03-08 15:05 | EDRN ---
Dr. Perkins in to see pt.
[2025-03-08] MEDS: ATIVAN 1 MG IV (15:11)
[2025-03-08] MEDS: REGLAN 10 MG IV (15:11)
[2025-03-08] MEDS: PEPCID 20 MG IV (15:11)
--- NOTE | 2025-03-08 15:34 | W.PN.UPDATE ---
Update Note
Progress Note Update
This is an addendum to H&P written by Ruthann Hernandez on 03/08/2025.� Patient seen and examined independently with STUDIO ARTIST.
64-year-old female past medical history of gastroparesis, COPD, GERD, hypogammaglobulinemia, anemia, breast cancer in remission, anxiety/depression, hypertension, discharged yesterday after being admitted for gastroparesis flare.� She felt fine on
discharge but this morning woke up with vomiting, abdominal pain and diarrhea again.
Clears.� IV fluids.� Reglan, Zofran, Ativan as needed.� IV Protonix daily.� Check EKG to evaluate for QTc prolongation.
[2025-03-08 16:30] VITALS: BP 129/86
[2025-03-08 18:21] VITALS: BP 140/90
[2025-03-08 18:28] VITALS: BMI 21.1
[2025-03-08] MEDS: TYLENOL 650 MG PO (18:40)
[2025-03-08 20:35] LABS: Urine Albumin 1+ (Neg - Trace); Urine Bilirubin Negative (Negative); Urine Character Clear (Clear); Urine Color Yellow; Urine Glucose Negative (Negative); Urine Ketone 3+ (Negative); Urine Leukocyte Negative (Negative); Urine Nitrite Negative (Negative); Urine Occult Blood Negative (Negative); Urine Specific Gravity 1.025 (<1.030); Urine Urobilinogen Negative (Neg - 1+)
[2025-03-08] MEDS: BUSPAR PO ×2 (20:35→23:02)
[2025-03-08] MEDS: LOVENOX 40 MG SC (20:35)
[2025-03-08 20:41] LABS: Urine Squamous Cell 0-2 /LPF (Few)
[2025-03-08 20:42] LABS: Urine Bacteria Few (Negative); Urine Mucus Moderate; Urine Red Blood Cell 0-2 /HPF (0-2); Urine White Cell 0-2 /HPF (0-5)
[2025-03-08] MEDS: REMERON PO (23:02)
[2025-03-08] MEDS: DESYREL PO (23:02)
[2025-03-08 23:30] VITALS: BP 98/68
[2025-03-09] MEDS: ZOFRAN 4 MG IV ×3 (03:40→20:16)
[2025-03-09] MEDS: NSS 1000 IV ×2 (03:41→22:25)
--- NOTE | 2025-03-09 06:30 | W.PN.HOSP.TC ---
Today's Communication/Plan
-
see a/p
Assessment / Plan
Assessment / Plan
Physical Exam
General: No acute distress, appears comfortable at this time
HEENT: NormoCephalic, Moist mucous membranes, Atraumatic, [place] Conjunctivae
Respiratory: Clear to auscultation b/l no crackles/wheezes
Cardiac: S1/S2 and Regular Rhythm; No Murmur or Rub
GI: Soft, Non Distended and Normal Bowel Sounds; No Organomegaly
Musculoskeletal: No Clubbing, No Cyanosis and No Edema
Skin: Warm no rashes
Neuro: AOx3 conversant coherent
Psych: Calm and Intact Judgment/Insight
64F Asthma COPD GERD Anxiety/Depression Gastroparesis hx Hiatal Hernia repair however since failed, follows Dr Rasmussen, here with intractable nausea/vomiting suspect gastroparesis flare recently here for the same 03/06-03/07, returned the next day
following discharge.
#intractable nausea and vomiting likely 2/2 gastroparesis
persistent nausea and vomiting despite multiple dose Zofran
- Admit to med/surg
- IV Zofran, Reglan and Ativan
- Clears
- six small meals a day
-GI eval appreciated
-PPI BID
#asthma
#COPD
- continue albuterol
#GERD
- IV Protonix BID
#hypertension
- continue lisinopril
#anxiety/depression
- continue aripiprazole, buspirone, fluoxetine, mirtazapine and trazadone
Code status: full code
DVT prophylaxis: Lovenox sq
I spent a total of 50 minutes with the patient or on the floor. More than 50% of this time involved counseling and coordination of care.
Anticipated Discharge: 24 - 48 hours
Subjective/Interval History
-
Date of Service: March 09, 2025
No acute distress resting comfortably in bed. Reports improvement in symptoms. Soreness abd from prior vomiting. Has not attempted diet yet.
Objective Data
-
Labs:
Laboratory Results
03/09/25
06:00
Sodium Pending
Potassium Pending
Chloride Pending
Carbon Dioxide Pending
BUN Pending
Creatinine Pending
Glucose Pending
Calcium Pending
Vital Signs:
Vital Signs
Temp Pulse Resp BP Pulse Ox
99.3 F 85 16 98/68 94
03/08/25 23:30 03/08/25 23:30 03/08/25 23:30 03/08/25 23:30 03/08/25 23:30
I&O
03/07/25 03/08/25 03/09/25
06:59 06:59 06:59
Intake Total 480 / 480
Output Total 150 / 150
Balance 330 / 330
[2025-03-09 07:30] VITALS: BP 133/86
[2025-03-09] MEDS: PROZAC PO (08:30)
[2025-03-09] MEDS: BUSPAR PO ×2 (08:30→20:14)
[2025-03-09] MEDS: REVIA PO (08:30)
[2025-03-09] MEDS: ABILIFY PO (08:30)
[2025-03-09] MEDS: ZESTRIL PO (08:30)
[2025-03-09] MEDS: REGLAN 10 MG IV ×2 (08:36→16:39)
[2025-03-09] MEDS: NSS (PRESERVATIVE FREE) IV (08:42)
[2025-03-09 08:57] LABS: Blood Urea Nitrogen 22 mg/dl (7-17); Carbon Dioxide 17 mmol/L (22-30); Chloride 112 mmol/L (98-107); Estimated Creatinine Clearance 61 ml/min; Glucose 109 mg/dl (70-99); Potassium 3.9 mmol/L (3.5-5.1); Sodium 138 mmol/L (135-145); eGFR > 60.00
[2025-03-09] MEDS: NSS (PRESERVATIVE FREE) 0.5 ML IV ×2 (11:07→22:23)
[2025-03-09] MEDS: ATIVAN 1 MG IV ×2 (11:07→22:23)
--- NOTE | 2025-03-09 12:22 | CON.GI ---
Addendum entered and electronically signed by Ibrahima Robledo DO 03/09/25 14:11:
I saw and examined the patient.
The COLLAR TRIMMER's note was reviewed and I agree with the detailed note as outlined below.
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
dilation on 03/25/23 (given concern for proximal migration of wrap) and recent hospitalization for nausea/vomiting and watery diarrhea (03/06-03/07) after eating cream sauce with concern for possible gastroenteritis versus gastroparesis who represents
to the ED with recurrent nausea/vomiting and looser stools. She presents again with nausea/vomiting but without any other reflux, heartburn, regurgitation or other worsening GERD symptoms given her known previous HH repair. No other
dysphagia/odynophagia or melena. She notes that she's had symptoms like this in the past from her known gastroparesis but nothing this severe and notes clear association of symptoms after eating cream sauce at home. Denies any other sick contacts.
In regards to her gastroparesis, she was previously managed with Remeron and Reglan in the past as needed and has been taking twice daily Omeprazole as well. Prior CT imaging during her prior admission on 03/06/25 was unrevealing without any acute
findings, only revealing a small hiatal hernia and mild colonic stool burden along with a stable giant hemangioma within the right hepatic lobe. Repeat lab work also reassuring, however she was febrile up to 101.3 and again 100.5 back on 03/08/25.
Etiology of patient's symptoms still seems most suspicious for a viral gastroenteritis triggering worsening symptoms from her known gastroparesis given her symptomatology and looser stools along with her recent fever. Unclear if her current symptoms
are related to her previous wrap/fundoplication as this was previously required dilation in the past. She also does endorse weight loss but appears her weights have been stable. For now, would recommend infectious work-up with stool studies along
with considering blood and urine cultures given her fevers. Would consider an EGD early next week if patient's symptoms continue to remain refractory. In the meantime, would maximize her acid suppression with PPI 40 mg BiD and Pepcid 40 mg qhs along
with ongoing supportive care with anti-emetic regimen as below over weekend. Rest of care as outlined below.
GI will continue to follow.
Original Note:
Consultation
-
Date/Time Consultation Requested: 03/09/25- 0950
Date/Time Consultation Performed: 03/09/25 1220
Requesting Provider: Berlin Gomez MD
Performing Provider: SAVANNA Anglin, Ibrahima Robledo DO
Reason for Consultation: nausea/vomiting
Medical History
Chief Complaint / HPI
Chief Complaint: Vomiting
History of Present Illness:
The pt is a 64 yo female with a PMH significant for idiopathic gastroparesis, Arndt's esophagus, CVID on immunoglobulin injections weekly, hiatal hernia repair (~2019- [place], [place]), prior fundoplication wrap with dilation 03/25/23 -Dr. Oropeza with
wrap migrated proximally ,breast CA s/p lumpectomy and XRT (2012), GERD, HTN, asthma, COPD, anxiety, diverticulosis, hx Cdiff (antibiotic associated), vitamin D deficiency, prior fundoplication wrap with dilation 03/25/23, pancreatic cysts, liver
hemagioma with admission in November with PNA/COPD then admission 03/06- 03/07 with intractable nausea and vomiting. She attempted to go home but returns with continued vomiting and asked to see pt. In review she admits since HH repair several years
ago with dilation post procedure and development of gastroparesis. Over last few years she has seen [facility] along with [facility] and Dr. Rasmussen. She completed esophageal manometry and impedance testing suggestive of esophageal stasis
and delayed esophageal emptying as well as degree of reduced esophageal motility. Last OP eval with GI was 2022 with Remeron and Reglan PRN. On last visit with Dr. Rasmussen in August 2024 he felt no progressive symptoms of HH recurrence and
continue gastroparesis management per GI.
In further review with patient she admits to 60 lb wt loss but per chart similar weight over last few years. She admits to nausea and vomiting of bile. She does have GERD with PPI use BID prior to admission. She denies hematemesis. She admits
to some chronic diarrhea but denies dysphagia, odynophagia, constipation or rectal bleeding.
03/06/25 CT A/p No acute findings in the abdomen or pelvis.
Colonic diverticulosis. Mild colonic stool burden.
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
Small hiatal hernia.
EGD: 03/25/23 Dr. Oropeza: Normal esophagus. A fundoplication was found. The wrap appears to have migrated proximally. Dilated. No gross lesions in the entire stomach. Normal duodenal bulb, first portion of the duodenum and second portion of the
duodenum. No specimens collected.
EGD:� 03/01/23 Impression: No gross lesions in the entire esophagus. Z-line irregular, 35 cm from the incisors. Biopsied. Small hiatal hernia Erythematous mucosa in the antrum. Biopsied. Nodular mucosa in the duodenal bulb. Biopsied. Normal second
portion of the duodenum. Path +Arndt's, negative for celiac, h pylori.
Colonoscopy:�03/01/23, Impression: The examined portion of the ileum was normal. One 4 mm polyp in the ascending colon, removed with a cold snare. Resected and retrieved. Normal mucosa in the entire examined colon. Biopsied. Diverticulosis in the
sigmoid colon. Internal hemorrhoids. TA polyp on path, random bx negative.
Past Medical History
Past Medical History: Asthma, COPD, GERD, Psychiatric (anxiety/depression) and Other ( idiopathic gastroparesis, Arndt's esophagus, C VID on weekly immunoglobulin, hiatal hernia repair in 2019, breast cancer status postlumpectomy and XRT in 2012,
COPD, history of C. difficile, dilation of her fundoplication in March 2023, pancreatic cyst, GI bleeding, migraines,colon polyps, hemagio )
Past Surgical History: Other (Fundoplication 2019)
Social History
Tobacco: Former Smoker
Alcohol: None
Drug: None (Denies marijuana use)
Personal:
Living: With Family
Employment: Retired
Family History
Family History: Other (no family hx GI issues )
Allergies / Home Medications
Allergy/AdvReac Type Severity Reaction Status Date / Time
No Known Allergies Allergy Verified 03/08/25 11:35
�Medication �Instructions �Recorded
immun glob G 10 gram/50 mL(20 10 gm SC TU common variable 09/30/18
%)-pro-IgA 0-50 mcg/mL immunodeficiency
subcutaneous soln (Hizentra)
omeprazole 20 mg capsule,delayed 20 mg PO BID Gastrointestinal Issue 12/27/23
release
aripiprazole 5 mg tablet (Abilify) 5 mg PO DAILY Mental Health/Anxiety 08/12/24
buspirone 15 mg tablet 15 mg PO BID Mental Health/Anxiety 08/12/24
fluoxetine 40 mg capsule 40 mg PO DAILY Mental 08/12/24
Health/Anxiety
lisinopril 10 mg tablet 10 mg PO DAILY Blood Pressure 08/12/24
trazodone 100 mg tablet 100 mg PO HS Sleep 08/12/24
mirtazapine 15 mg tablet 45 mg PO HS Depression 11/23/24
naltrexone 50 mg tablet 50 mg PO DAILY opioid use disorder 11/23/24
albuterol sulfate 90 mcg/actuation 1 puff inhalation R Q4HPRN PRN sob 03/06/25
aerosol inhaler
ondansetron 4 mg disintegrating 4 mg PO TID PRN nausea and 03/07/25
tablet vomiting 10 days #30 tabs
docusate sodium 100 mg capsule 100 mg PO DAILYPRN PRN constipation 03/08/25
(Colace)
Review of Systems
-
History Source: Patient
Constitutional: Reports Weight Loss
EENT: Reports No Symptoms
Respiratory: Reports No Symptoms
Cardiac: Reports No Symptoms
Abdomen/GI: Reports Nausea, Vomiting and Diarrhea
: Reports No Symptoms
Musculoskeletal: Reports No Symptoms
Skin: Reports No Symptoms
Neurological: Reports Other (hx depression/anxiety )
Endocrine: Reports No Symptoms
Hematologic/Lymphatic: Reports Other (hx anemia )
Vital Signs
Temp Pulse Resp BP Pulse Ox
98.4 F 96 14 133/86 93
03/09/25 07:30 03/09/25 07:30 03/09/25 07:30 03/09/25 07:30 03/09/25 07:30
Physical Exam
Exam
General: Well Developed, Well Nourished and No Apparent Distress
HEENT: Normocephalic, Anicteric and Atraumatic
Respiratory: Clear
Cardiac: S1/S2 and Regular Rhythm
GI: Soft, Non Distended, Normal Bowel Sounds and Tender (minimal generalized tenderness throughout, no guarding or rebound tenderness-- some nausea and small amount bile in emesis bag )
Musculoskeletal: No Edema
Skin: Warm and Dry
Neuro: Awake, Alert and Oriented
Psych: Calm
Results
WBC 7.8 10^3/uL (4.8-10.8) 03/08/25 13:14
Hgb 11.4 g/dL (12.0-16.0) L 03/08/25 13:14
Hct 35.1 % (37.0-47.0) L 03/08/25 13:14
MCV 89.5 fL (81.0-99.0) 03/08/25 13:14
Plt Count 179 10^3/uL (130-400) 03/08/25 13:14
Absolute Neuts (auto) 6.6 10^3/uL (1.4-6.5) H 03/08/25 13:14
Sodium 138 mmol/L (135-145) 03/09/25 07:52
Potassium 3.9 mmol/L (3.5-5.1) 03/09/25 07:52
Chloride 112 mmol/L (98-107) H 03/09/25 07:52
Carbon Dioxide 17 mmol/L (22-30) L 03/09/25 07:52
BUN 22 mg/dl (7-17) H 03/09/25 07:52
Creatinine 0.9 mg/dL (0.6-1.0) 03/09/25 07:52
Calcium 9.0 mg/dl (8.4-10.2) 03/09/25 07:52
Total Bilirubin 0.7 mg/dl (0.2-1.3) 03/08/25 13:14
AST 28 U/L (14-36) 03/08/25 13:14
ALT 19 U/L (0-35) 03/08/25 13:14
Alkaline Phosphatase 109 U/L (38-126) 03/08/25 13:14
Lipase 69 U/L (23-300) 03/08/25 13:14
Diagnostic Image Results:
03/06/25 CT A/p
No acute findings in the abdomen or pelvis.
Colonic diverticulosis. Mild colonic stool burden.
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
Small hiatal hernia.
03/22/23 GES: 'Scintigraphic findings suspicious for gastroparesis.'
03/21/23 CT A/P/C Iv contrast: 'IMPRESSION: No acute pathology of the chest, abdomen or pelvis identified. Bilateral upper lobe bronchiectasis. New. Mild emphysematous disease. Stable. Moderate hiatal hernia. Stable. Large hepatic hemangioma. Stable.
Small pancreatic cyst. This may be benign or malignant. It is stable. See recent MRI abdomen report 03/03/2023. Anterior bladder wall thickening. Progressed. This may be due to cystitis. A mural mass cannot be excluded. Direct visualization
recommended. '
Prior GI Procedures:
UGI 01/31/23: 'IMPRESSION: [id number] hiatal hernia. Gastroesophageal reflux to the level of the aortic arch.'
EGD: 03/25/23 Dr. Oropeza: Normal esophagus. A fundoplication was found. The wrap appears to have migrated proximally. Dilated. No gross lesions in the entire stomach. Normal duodenal bulb, first portion of the duodenum and second portion of the
duodenum. No specimens collected.
EGD:� 03/01/23 Impression: No gross lesions in the entire esophagus. Z-line irregular, 35 cm from the incisors. Biopsied. Small hiatal hernia Erythematous mucosa in the antrum. Biopsied. Nodular mucosa in the duodenal bulb. Biopsied. Normal second
portion of the duodenum. Path +Arndt's, negative for celiac, h pylori.
Colonoscopy:�03/01/23, Impression: The examined portion of the ileum was normal. One 4 mm polyp in the ascending colon, removed with a cold snare. Resected and retrieved. Normal mucosa in the entire examined colon. Biopsied. Diverticulosis in the
sigmoid colon. Internal hemorrhoids. TA polyp on path, random bx negative.
Assessment / Plan
-
The pt is a 64 yo female with a PMH significant for idiopathic gastroparesis, Arndt's esophagus, CVID on immunoglobulin injections weekly, hiatal hernia repair (~2019- [place], [place]), prior fundoplication wrap with dilation 03/25/23 -Dr. Oropeza with
wrap migrated proximally ,breast CA s/p lumpectomy and XRT (2012), GERD, HTN, asthma, COPD, anxiety, diverticulosis, hx Cdiff (antibiotic associated), vitamin D deficiency, prior fundoplication wrap with dilation 03/25/23, pancreatic cysts with
admission in November with PNA/COPD then admission 03/06- 03/07 with intractable nausea and vomiting. She attempted to go home but returns with continued vomiting and asked to see pt. In review she admits since HH repair several years ago with
dilation post procedure and development of gastroparesis. Over last few years she has seen [facility] along with [facility] and Dr. Rasmussen. She completed esophageal manometry and impedance testing suggestive of esophageal stasis and
delayed esophageal emptying as well as degree of reduced esophageal motility. Last OP eval with GI was 2022 with Remeron and Reglan PRN. On last visit with Dr. Rasmussen in August 2024 he felt no progressive symptoms of HH recurrence and
continue gastroparesis management per GI. In further review with patient she admits to 60 lb wt loss but per chart similar weight over last few years. She admits to nausea and vomiting of bile. She does have GERD with PPI use BID prior to
admission.
EGD: 03/25/23 Dr. Oropeza: Normal esophagus. A fundoplication was found. The wrap appears to have migrated proximally. Dilated. No gross lesions in the entire stomach. Normal duodenal bulb, first portion of the duodenum and second portion of the
duodenum. No specimens collected.
03/06/25 CT A/p No acute findings in the abdomen or pelvis.
Colonic diverticulosis. Mild colonic stool burden.
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
Small hiatal hernia.
Problem list:
-nausea, vomiting
-diarrhea
-fever 101.3 overnight 03/08
-idiopathic gastroparesis
-hx hiatal hernia with repair, s/p fundoplication wrap dilation 03/25/23
-hx Cdiff
-large hemagioma on CT stable
-pancreatic cyst (needs surveillance in was -2023)
Other pertinent medical hx:
-breast CA s/p lumpectomy and XRT
-Arndt's esophagus
-HTN
-asthma
-COPD
-vitamin D deficiency
-CVID on weekly injections
-GERD
-anxiety
Recommendations:
-Etiology of recurrent N/V likely due to gastroparesis(known ideopathic in past) vs PEH vs viral vs other
agree with antiemetic-- current Zofran, Reglan,and ativan PRN
t/c increased RTC reglan but multiple med interaction
repeat EKG in AM to follow QTC
cont IVF supportive care
if recurrent fever consider blood/urine
consider EGD in Tuesday to assess fundoplication and wrap as has required dilation in 2022
pending EGD may need surgical eval
resume PPI BID with Pepcid at bedtime
monitor stool output if continued diarrhea check stool studies
OP MRI overdue follow up in panc cyst and noted prior large liver hemagioma ad noted in 7 cm in 2022
-
-
Thank you for consultation and allowing me to participate in the patient's care. Please call the [facility] physician during the after hours with any questions or concerns.
[2025-03-09] MEDS: NSS IV (14:06)
[2025-03-09 15:16] VITALS: BP 138/98
[2025-03-09] MEDS: LOVENOX 40 MG SC (17:15)
[2025-03-09] MEDS: TORADOL 15 MG IV (17:17)
[2025-03-09] MEDS: PROTONIX IV 40 MG IV (20:15)
[2025-03-09] MEDS: NSS (PRESERVATIVE FREE) 8 ML IV ×2 (20:15→22:24)
[2025-03-09] MEDS: DESYREL PO (22:13)
[2025-03-09] MEDS: REMERON PO (22:14)
[2025-03-09] MEDS: PEPCID 20 MG IV (22:24)
[2025-03-09] MEDS: TYLENOL 650 MG PO (23:50)
[2025-03-09 23:52] VITALS: BP 120/89
--- NOTE | 2025-03-10 06:12 | W.PN.GI.CBS2 ---
Today's Communication / Plan
-
Still with ongoing fevers, consider infectious w/u. Continue ongoing supportive care as below and would defer plans on an EGD at this time. See rest of care as outlined below.
Assessment / Plan
-
#Nausea/Vomiting
#Fevers
#Arndt's Esophagus
#Hx of Gastroparesis
#Hx of Breast Cancer (s/p lumpectomy/XRT)
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
dilation on 03/25/23 (given concern for proximal migration of wrap) and recent hospitalization for nausea/vomiting and watery diarrhea (03/06-03/07) after eating cream sauce with concern for possible gastroenteritis versus gastroparesis who represents
to the ED with recurrent nausea/vomiting and looser stools. She presents again with nausea/vomiting but without any other reflux, heartburn, regurgitation or other worsening GERD symptoms given her known previous HH repair. No other
dysphagia/odynophagia or melena. She notes that she's had symptoms like this in the past from her known gastroparesis but nothing this severe and notes clear association of symptoms after eating cream sauce at home. Denies any other sick contacts.
In regards to her gastroparesis, she was previously managed with Remeron and Reglan in the past as needed and has been taking twice daily Omeprazole as well. Prior CT imaging during her prior admission on 03/06/25 was unrevealing without any acute
findings, only revealing a small hiatal hernia and mild colonic stool burden along with a stable giant hemangioma within the right hepatic lobe. Repeat lab work also reassuring, however she was febrile up to 101.3 and again 100.5 back on 03/08/25 and
on 03/09 with T Max of 100.6. Etiology of patient's symptoms still seems most suspicious for a viral gastroenteritis triggering worsening symptoms from her known gastroparesis given her symptomatology and looser stools along with her persistent
fevers versus other infectious process. Unclear if her current symptoms are related to her previous wrap/fundoplication as this was previously required dilation in the past. She also does endorse weight loss but appears her weights have been stable.
For now, would recommend infectious work-up with stool studies along with considering blood and urine cultures given her fevers. Would consider an EGD early next week if patient's symptoms continue to remain refractory. In the meantime, would
maximize her acid suppression with PPI 40 mg BiD and Pepcid 40 mg qhs along with ongoing supportive care with anti-emetic regimen as below over weekend.
EGD: 03/25/23 Dr. Oropeza: Normal esophagus. A fundoplication was found. The wrap appears to have migrated proximally. Dilated. No gross lesions in the entire stomach. Normal duodenal bulb, first portion of the duodenum and second portion of the
duodenum. No specimens collected.
03/06/25 CT A/p No acute findings in the abdomen or pelvis. Colonic diverticulosis. Mild colonic stool burden. 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 Small hiatal hernia.
Recommendations:
- CLD, may ADAT
- Suspect underlying infectious process triggering her nausea/vomiting given persistent fevers
- Consider obtaining further infectious w/u: blood cultures, stool culture if able to have BM
- If worsening abd pain and fevers, would consider repeat cross-sectional imaging with CT
- IV PPI 40 mg BiD and Pepcid qhs
- Given her persistent fevers, would defer an endoscopic evaluation with an EGD at this time pending infectious w/u
- Continue ongoing supportive care and anti-emetics with Zofran, Reglan,and ativan PRN
- Strict avoidance of all NSAIDs
- Rest of care as per primary team
Discussed with patient and primary internal medicine team this AM. GI will continue to follow.
Subjective
Subjective
Date of Service: March 10, 2025
- Febrile last night on 03/09 around 2350 with T Max of 100.6 and previous T Max of 101.3 on 03/08
- Tachycardic with HR 100s, otherwise HD-stable
Reports feeling feverish and chills last evening. No other localizing symptoms aside from nausea without any recent episodes of emesis. Denies any other abdominal pain or further diarrhea.
Objective
Data Reviewed
Laboratory Data:
Laboratory Results
Total Bilirubin 0.7 mg/dl (0.2-1.3) 03/08/25 13:14
AST 28 U/L (14-36) 03/08/25 13:14
ALT 19 U/L (0-35) 03/08/25 13:14
Alkaline Phosphatase 109 U/L (38-126) 03/08/25 13:14
Lipase 69 U/L (23-300) 03/08/25 13:14
Vital Signs and I&O:
Vital Signs
Temp Pulse Resp BP Pulse Ox
99.3 F 104 20 120/89 100
03/10/25 03:05 03/09/25 23:52 03/09/25 23:52 03/09/25 23:52 03/09/25 23:52
I&O
03/08/25 03/09/25 03/10/25
06:59 06:59 06:59
Intake Total 480 / 480 3103 / 3103
Output Total 150 / 150
Balance 330 / 330 3103 / 3103
Physical Exam
Physical Exam
HEENT: Anicteric and Moist mucous membranes
Pulmonary: Other (Normal WOB on room air)
GI: Soft, Non Distended and Non Tender
Extremities: No Edema and Warm
Neuro: Non Focal
[2025-03-10 06:44] LABS: Hematocrit 30.5 % (37.0-47.0); Hemoglobin 10.3 g/dL (12.0-16.0); Mean Corp Hgb Conc. 33.8 g/dL (33.0-37.0); Mean Corpuscular Hgb 29.8 pg (27.0-31.0); Mean Corpuscular Volume 88.2 fL (81.0-99.0); Mean Platelet Volume 10.5 fL (7.4-10.4); Platelet Count 142 10^3/uL (130-400); Red Blood Cell Count 3.46 10^6/uL (4.20-5.40); White Blood Cell Count 7.5 10^3/uL (4.8-10.8)
[2025-03-10 07:16] LABS: Blood Urea Nitrogen 22 mg/dl (7-17); Calcium 8.6 mg/dl (8.4-10.2); Carbon Dioxide 17 mmol/L (22-30); Chloride 112 mmol/L (98-107); Estimated Creatinine Clearance 61 ml/min; Glucose 101 mg/dl (70-99); Magnesium 1.5 mg/dl (1.6-2.3); Phosphorus 3.2 mg/dl (2.5-4.5); Potassium 3.8 mmol/L (3.5-5.1); Sodium 138 mmol/L (135-145); eGFR > 60.00
[2025-03-10 07:22] VITALS: BP 123/85
[2025-03-10] MEDS: PROZAC PO (07:42)
[2025-03-10] MEDS: BUSPAR PO ×2 (07:42→19:37)
[2025-03-10] MEDS: REVIA PO (07:42)
[2025-03-10] MEDS: ABILIFY PO (07:42)
[2025-03-10] MEDS: VISBIOME PO (07:43)
[2025-03-10] MEDS: ZESTRIL PO (07:43)
--- NOTE | 2025-03-10 07:52 | W.PN.HOSP.TC ---
Today's Communication/Plan
-
see a/p
Assessment / Plan
Assessment / Plan
Physical Exam
General: No acute distress, appears comfortable at this time
HEENT: NormoCephalic, Moist mucous membranes, Atraumatic, [place] Conjunctivae
Respiratory: Clear to auscultation b/l no crackles/wheezes
Cardiac: S1/S2 and Regular Rhythm; No Murmur or Rub
GI: Soft, Non Distended and Normal Bowel Sounds, mild diffuse tenderness
Musculoskeletal: No Clubbing, No Cyanosis and No Edema
Skin: Warm no rashes
Neuro: AOx3 conversant coherent
Psych: Calm and Intact Judgment/Insight
64F Asthma COPD GERD Anxiety/Depression Gastroparesis hx Hiatal Hernia repair however since failed, follows Dr Rasmussen, here with intractable nausea/vomiting suspect gastroparesis flare recently here for the same 03/06-03/07, returned the next day
following discharge.
#intractable nausea and vomiting likely 2/2 gastroparesis
persistent nausea and vomiting despite multiple dose Zofran
- med/surg admit
- IV Zofran, Reglan and Ativan
- Clears
- six small meals a day
-GI eval appreciated considering EGD this hospitalization
-PPI BID
-on naltrexone for opiate use disorder
-Toradol prn mod severe pain
Intermittent Fevers unclear Etiology
Recent Hx tick exposure
-Tylenol prn
-no significant hypotension or lactic acidosis
-recent urinalysis unremarkable for infection
-Follow blood cultures
-received empiric unasyn for possible aspiration pna given hx vomiting, CXR noted small b/l pleural effusions possible signs of aspiration pna, however procal neg, abx subsequently discontinued monitor off.
-ID eval requested
-trend Temp WBC
#asthma
#COPD
- continue albuterol
#GERD
- IV Protonix BID
#hypertension
- continue lisinopril
#anxiety/depression
- continue aripiprazole, buspirone, fluoxetine, mirtazapine and trazadone
Code status: full code
DVT prophylaxis: Lovenox sq
I spent a total of 45 minutes with the patient or on the floor. More than 50% of this time involved counseling and coordination of care.
Anticipated Discharge: 24 - 48 hours
Subjective/Interval History
-
Date of Service: March 10, 2025
Symptoms persists unable to tolerate diet. Patient also spiking intermittent fevers.
Objective Data
-
Labs:
Laboratory Results
03/10/25
06:25
WBC 7.5
Hgb 10.3 L
Hct 30.5 L
Plt Count 142 D
Sodium 138
Potassium 3.8
Chloride 112 H
Carbon Dioxide 17 L
BUN 22 H
Creatinine 0.9
Glucose 101 H
Calcium 8.6
Vital Signs:
Vital Signs
Temp Pulse Resp BP Pulse Ox
99.5 F 100 18 123/85 95
03/10/25 07:22 03/10/25 07:22 03/10/25 07:22 03/10/25 07:22 03/10/25 07:22
I&O
03/09/25 03/10/25 03/11/25
06:59 06:59 06:59
Intake Total 480 / 480 4303 / 4303
Output Total 150 / 150
Balance 330 / 330 4303 / 4303
[2025-03-10] MEDS: NSS (PRESERVATIVE FREE) 10 ML IV ×2 (07:57→19:45)
[2025-03-10] MEDS: PROTONIX IV 40 MG IV ×2 (07:57→19:45)
[2025-03-10 08:00] LABS: COVID-19 Antigen Negative (Negative)
[2025-03-10 08:58] LABS: Lactic Acid 1.1 mmol/L (0.7-2.0)
[2025-03-10] MEDS: UNASYN IV (09:14)
[2025-03-10 09:16] LABS: Procalcitonin < 0.05 ng/ml (0.0-0.25)
[2025-03-10] MEDS: TORADOL 15 MG IV (09:16)
[2025-03-10] MEDS: ZOFRAN 4 MG IV (09:17)
[2025-03-10] MEDS: NSS IV (09:43)
--- NOTE | 2025-03-10 11:08 | CM ---
CM reviewed chart, patient seen bedside to complete IA. Pt was discharged to home on 03/07/2025, returned to ED with recurrent nausea and vomiting.
Patient resides with her spouse in a one level home ([facility]), no steps to enter. Patient is (I) amb and adls; denies use of DME, VN, or SNF in the past. Patient states that her will provide transportation home at discharge.
CM will continue to follow for all discharge planning needs.
PCP: James Neal
Pharmacy: [facility]
[2025-03-10] MEDS: NSS 1000 IV (12:30)
[2025-03-10] MEDS: REGLAN 10 MG IV (15:13)
[2025-03-10] MEDS: ATIVAN 1 MG IV ×2 (15:19→19:44)
[2025-03-10] MEDS: NSS (PRESERVATIVE FREE) 0.5 ML IV ×2 (15:19→19:44)
[2025-03-10 15:27] VITALS: BP 113/78
--- NOTE | 2025-03-10 15:37 | CON.ID ---
Consultation
-
Date/Time Consultation Requested: 03/10/2025 0850
Date/Time Consultation Performed: 03/10/2025 15:30
Requesting Provider: Dr. Gomez
Performing Provider: Dr. Boland
Reason for Consultation: Fever
Chief Complaint / Past History
History of Present Illness
Ivana Huddleston is a 64-year-old female being evaluated at the request of Dr. Gomez in regards to fever. History is obtained from chart review, along with patient interview.
The patient is a prior history of gastroparesis, and notes that every several years she has significant attacks consisting of days of nausea and vomiting. Her most recent episode began on 03/06, and she believes that it may have been precipitated by
cream sauce in her meal that she had the evening before. She presented to the emergency room on 03/06. Workup at that time was relatively unrevealing, but because of ongoing nausea she was admitted for approximately 24 hours. She was discharged on
417 feeling somewhat improved, but returned to the ER on 03/08 secondary to ongoing nausea and vomiting.
Since admission she has had intermittent low-grade temperatures, with the highest being 101.3. She admits to some intermittent shaking chills. She denies any headache. She denies any chest pain, but notes generalized sore muscles secondary to
retching. She admits to some 'diarrhea this a.m., but clarified it to reports consistency like 'thick pudding'.
Finally, she admits that approximately 1 month ago her pulled a tick off of the back of her neck. Since that time she has noted no rashes. The tick was described as 'big'. She does have a dog.
Past History
Additional Past Medical History:
Gastroparesis
Asthma
Hx breast CVA (2012)
COPD
GERD
HTN
Anxiety/depression
Diverticulosis
Hypogammaglobulinemia
Additional Past Surgical History:
Lumpectomy
Left wrist fracture
Lumbar surgery
Hiatal hernia repair
Allergy History:
No Known Allergies Allergy (Verified 03/08/25 11:35)
Medications Reviewed: Yes
Current Antibiotics:
None
Unasyn - D/C'ed
Social History
Tobacco: Former Smoker
Alcohol: None
Drug: None
Personal:
Living: With Family
Employment: Retired
Family History
Family History: Not Pertinent
Review of Systems
Vital Signs
Temp Pulse Resp BP Pulse Ox
98.9 F 102 18 113/78 95
03/10/25 15:27 03/10/25 15:27 03/10/25 15:27 03/10/25 15:27 03/10/25 15:27
Physical Exam
Physical Exam
Constitutional: No Acute Distress, Comfortable and Non-toxic
Head: Normocephalic
Eyes: Pupils Equal, Pupils Round and No Conjunctival Hemorrhage
Oral: No Thrush and No Ulcers
Cardiovascular: S1/S2; Negative S3/S4
Pulmonary: Clear; Negative Wheezes or Rales
Gastrointestinal: Soft, Tender, Non Distended, Normal Bowel Sounds, No Rebound and No Guarding
Extremities: Negative Edema, Cyanosis or Erythema
Skin: Warm and Dry; Negative Rash or Jaundice
Neurological: Awake and Alert
Psychological: Calm
Lab / Diagnostic Study Results
03/10/25 06:25
03/10/25 06:25
Abs Immat Gran (auto) 0.0 10^3/uL (0-0.05) 03/08/25 13:14
Absolute Neuts (auto) 6.6 10^3/uL (1.4-6.5) H 03/08/25 13:14
Absolute Lymphs (auto) 0.7 10^3/uL (1.2-3.4) L 03/08/25 13:14
Absolute Monos (auto) 0.4 10^3/uL (0.1-0.6) 04/18/25 13:14
Absolute Basos (auto) 0.0 10^3/uL (0-0.2) 03/08/25 13:14
Immature Gran % 0.4 % (0-0.5) 03/08/25 13:14
Neutrophils % 84.3 % (42.2-75.2) H 03/08/25 13:14
Lymphocytes % 9.1 % (20.5-51.1) L 03/08/25 13:14
Monocytes % 5.4 % (1.7-9.3) 03/08/25 13:14
Eosinophils % 0.3 % (0-6) 03/08/25 13:14
Basophils % 0.5 % (0-2) 03/08/25 13:14
Lactic Acid 1.1 mmol/L (0.7-2.0) 03/10/25 08:38
Procalcitonin < 0.05 ng/ml (0.0-0.25) 03/10/25 08:38
Ur Squamous Epith Cells 0-2 /LPF (Few) 03/08/25 20:27
Microbiology Results
Micro:
03/10/25 08:38 Blood Culture - Pending
Blood/Venous
03/10/25 09:06 Blood Culture - Pending
Blood/Venous
03/10/25 07:32 Influenza Types A & B ([facility]) - Final
Nasal Swab Negative for Influenza A & B, NAAT
Negative results must be combined with clinical observations
and patient history.
Nucleic Acid Amplification test (NAAT)performed on the
[employer] platform.
Imaging:
03/10/2025 CXR (2 view): Lungs are symmetrically hyperinflated. Small bilateral pleural effusions. Mild increased opacities in the medial aspect of the lower lobes. No pneumothorax noted. Please see full dictation for additional detail.
03/06/2025 CT abdomen/pelvis with contrast: 6.5 cm lesion within the right hepatic lobe is consistent with hemangioma. Gallbladder is unremarkable. Spleen is within normal limits. No obstruction or wall thickening of the bowel. Mild colonic stool
burden. Colonic diverticulosis noted. Please see full dictation for additional detail.
Assessment / Plan
Nausea / vomiting
Gastroparesis
Intermittent fevers
Reported tick exposure
- 1 month prior
- based on size, suspected 'dog tick'.
Normal procalcitonin
Asthma
Hx breast CVA (2013)
COPD
GERD
HTN
Anxiety/depression
Diverticulosis
Hypogammaglobulinemia
Recommendations:
Agree with discontinuation of antibiotics.
Would continue to monitor white count and temperature curve.
Given nausea and vomiting, check norovirus PCR.
Continue with symptomatic management.
Normal procalcitonin speaks against bacterial etiology, but if fevers persist and infection felt to be present, it may need to 'declare itself'.
[2025-03-10] MEDS: LOVENOX 40 MG SC (17:20)
[2025-03-10] MEDS: NSS (PRESERVATIVE FREE) 8 ML IV (21:52)
[2025-03-10] MEDS: PEPCID 20 MG IV (21:53)
[2025-03-10] MEDS: REMERON PO (22:03)
[2025-03-10] MEDS: DESYREL PO (22:03)
[2025-03-10 23:00] VITALS: BP 149/94
[2025-03-11] MEDS: ZOFRAN 4 MG IV ×3 (02:43→15:40)
[2025-03-11] MEDS: TORADOL 15 MG IV ×2 (02:50→15:09)
--- NOTE | 2025-03-11 05:56 | W.PN.GI.CBS2 ---
Today's Communication / Plan
-
Continue CLD, may ADAT. Continue ongoing supportive care and f/u Norovirus PCR. If (-), will consider EGD tomorrow 03/12/2025 for further evaluation. See rest of care as outlined below.
Assessment / Plan
-
#Nausea/Vomiting
#Fevers
#Arndt's Esophagus
#Hx of Gastroparesis
#Hx of Breast Cancer (s/p lumpectomy/XRT)
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
dilation on 03/25/23 (given concern for proximal migration of wrap) and recent hospitalization for nausea/vomiting and watery diarrhea (03/06-03/07) after eating cream sauce with concern for possible gastroenteritis versus gastroparesis who represents
to the ED with recurrent nausea/vomiting and looser stools. She presents again with nausea/vomiting but without any other reflux, heartburn, regurgitation or other worsening GERD symptoms given her known previous HH repair. No other
dysphagia/odynophagia or melena. She notes that she's had symptoms like this in the past from her known gastroparesis but nothing this severe and notes clear association of symptoms after eating cream sauce at home. Denies any other sick contacts.
In regards to her gastroparesis, she was previously managed with Remeron and Reglan in the past as needed and has been taking twice daily Omeprazole as well. Prior CT imaging during her prior admission on 03/06/25 was unrevealing without any acute
findings, only revealing a small hiatal hernia and mild colonic stool burden along with a stable giant hemangioma within the right hepatic lobe. Repeat lab work also reassuring, however she was febrile up to 101.3 and again 100.5 back on 03/08/25 and
on 03/09 with T Max of 100.6. Etiology of patient's symptoms still seems most suspicious for a viral gastroenteritis triggering worsening symptoms from her known gastroparesis given her symptomatology and looser stools along with her persistent
fevers versus other infectious process. Unclear if her current symptoms are related to her previous wrap/fundoplication as this was previously required dilation in the past. She also does endorse weight loss but appears her weights have been stable.
For now, would recommend infectious work-up with stool studies along with considering blood and urine cultures given her fevers. Would consider an EGD early next week if patient's symptoms continue to remain refractory. In the meantime, would
maximize her acid suppression with PPI 40 mg BiD and Pepcid 40 mg qhs along with ongoing supportive care with anti-emetic regimen as below over weekend.
EGD: 03/25/23 Dr. Oropeza: Normal esophagus. A fundoplication was found. The wrap appears to have migrated proximally. Dilated. No gross lesions in the entire stomach. Normal duodenal bulb, first portion of the duodenum and second portion of the
duodenum. No specimens collected.
03/06/25 CT A/p No acute findings in the abdomen or pelvis. Colonic diverticulosis. Mild colonic stool burden. 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 Small hiatal hernia.
Recommendations:
- CLD, may ADAT. Keep NPO at MN
- Suspect underlying infectious process triggering her nausea/vomiting and previous fevers
- Pending blood cultures, send stool culture if able to have BM. Procalcitonin (< 0.05)
- Ordered Norovirus PCR, remains on isolation precautions. ID following appreciate recs
- IV PPI 40 mg BiD and Pepcid qhs
- Given defervescence of fevers will plan for EGD tomorrow, 03/12/25, if Norovirus PCR is (-) for further evaluation of her symptoms along with her known hiatal hernia
- Continue ongoing supportive care and anti-emetics with Zofran, Reglan,and ativan PRN
- Strict avoidance of all NSAIDs
- Rest of care as per primary team
Discussed with patient and primary internal medicine team this AM. GI will continue to follow.
Subjective
Subjective
Date of Service: March 11, 2025
- Afebrile overnight, blood cultures pending
- Ordered Norovirus PCR, remains on isolation precautions
- Otherwise, no acute events overnight
Still with persistent nausea and upper abdominal discomfort. Denies any worsening symptoms or episodes of vomiting or episodes of diarrhea over the past 24-48 hrs. Denies any further fevers/chills or other constitutional symptoms.
Objective
Data Reviewed
Laboratory Data:
Laboratory Results
Phosphorus 3.2 mg/dl (2.5-4.5) 03/10/25 06:25
Magnesium 1.5 mg/dl (1.6-2.3) L 03/10/25 06:25
Total Bilirubin 0.7 mg/dl (0.2-1.3) 03/08/25 13:14
AST 28 U/L (14-36) 03/08/25 13:14
ALT 19 U/L (0-35) 03/08/25 13:14
Alkaline Phosphatase 109 U/L (38-126) 03/08/25 13:14
Lipase 69 U/L (23-300) 03/08/25 13:14
Vital Signs and I&O:
Vital Signs
Temp Pulse Resp BP Pulse Ox
98.2 F 100 18 149/94 98
03/10/25 23:00 03/10/25 23:00 03/10/25 23:00 03/10/25 23:00 03/10/25 23:00
I&O
03/09/25 03/10/25 03/11/25
06:59 06:59 06:59
Intake Total 480 / 480 4303 / 4303 1669 / 1669
Output Total 150 / 150
Balance 330 / 330 4303 / 4303 1669
Physical Exam
Physical Exam
HEENT: Anicteric and Moist mucous membranes
Pulmonary: Other (Normal WOB on room air)
GI: Soft, Non Distended and Non Tender
Extremities: No Edema and Warm
Neuro: Non Focal
[2025-03-11] MEDS: NSS IV (06:35)
[2025-03-11] MEDS: NSS 1000 IV ×2 (06:37→21:12)
[2025-03-11 07:05] VITALS: BP 146/107
[2025-03-11] MEDS: BUSPAR PO (07:58)
[2025-03-11] MEDS: PROZAC PO (07:58)
[2025-03-11] MEDS: REVIA PO (07:58)
[2025-03-11] MEDS: VISBIOME PO (07:58)
[2025-03-11] MEDS: ABILIFY PO (07:58)
[2025-03-11] MEDS: ZESTRIL PO (07:58)
[2025-03-11] MEDS: NSS (PRESERVATIVE FREE) 10 ML IV ×2 (08:09→21:18)
[2025-03-11] MEDS: PROTONIX IV 40 MG IV ×2 (08:09→21:18)
[2025-03-11] MEDS: NSS (PRESERVATIVE FREE) 0.5 ML IV (08:17)
[2025-03-11] MEDS: ATIVAN 1 MG IV ×2 (08:17→22:01)
[2025-03-11 08:21] LABS: Hematocrit 29.8 % (37.0-47.0); Hemoglobin 9.8 g/dL (12.0-16.0); Mean Corp Hgb Conc. 32.9 g/dL (33.0-37.0); Mean Corpuscular Hgb 29.6 pg (27.0-31.0); Mean Platelet Volume 11.2 fL (7.4-10.4); Platelet Count 151 10^3/uL (130-400); Red Blood Cell Count 3.31 10^6/uL (4.20-5.40); Red Cell Dist. Width 14.1 % (11.5-14.5); White Blood Cell Count 7.4 10^3/uL (4.8-10.8)
[2025-03-11 09:06] LABS: Blood Urea Nitrogen 22 mg/dl (7-17); Calcium 8.7 mg/dl (8.4-10.2); Carbon Dioxide 18 mmol/L (22-30); Chloride 110 mmol/L (98-107); Estimated Creatinine Clearance 61 ml/min; Glucose 104 mg/dl (70-99); Magnesium 1.6 mg/dl (1.6-2.3); Phosphorus 2.9 mg/dl (2.5-4.5); Potassium 3.9 mmol/L (3.5-5.1); Sodium 137 mmol/L (135-145); eGFR > 60.00
--- NOTE | 2025-03-11 11:09 | W.PN.ID1 ---
Date of Service
Date of Service: March 11, 2025
Today's Communication
Observe off antibiotics.
Assessment / Plan
Intractable nausea / vomiting
Gastroparesis
Intermittent fevers
- appear down
Reported tick exposure
- 1 month prior
- based on size, suspected 'dog tick'.
Normal procalcitonin
Asthma
Hx breast CVA (2012)
COPD
GERD
HTN
Anxiety/depression
Diverticulosis
Hypogammaglobulinemia
Recommendations:
Observe off antibiotics.
Would continue to monitor white count and temperature curve.
Given nausea and vomiting, norovirus PCR ordered and pending.
Continue with symptomatic management.
Normal procalcitonin speaks against bacterial etiology, but if fevers persist and infection felt to be present, it may need to 'declare itself'.
����������������������������������������������������������
Chief Complaint
-: Other (Gastroparesis; intractable nausea and vomiting)
Subjective / Review of Systems
Review of Systems: No Fever, No Chills and No Skin Rash
Vital Signs / Physical Exam
Vital Signs
Vital Signs
Temp Pulse Resp BP Pulse Ox
98.9 F 107 18 146/107 96
03/11/25 07:05 03/11/25 07:05 03/11/25 07:05 03/11/25 07:05 03/11/25 07:05
Physical Exam
Constitutional: No Acute Distress, Comfortable and Non-toxic
Eyes: Sclera Anicteric
Pulmonary: Non Labored
Gastrointestinal: Non Distended
Neurological: Awake and Alert
Psychological: Calm
Objective Data
Lab Data
Lab Results
03/11/25 06:56
03/11/25 06:56
Estimated Creat Clear 61 ml/min 03/11/25 06:56
Lactic Acid 1.1 mmol/L (0.7-2.0) 03/10/25 08:38
Total Bilirubin 0.7 mg/dl (0.2-1.3) 03/08/25 13:14
AST 28 U/L (14-36) 03/08/25 13:14
ALT 19 U/L (0-35) 03/08/25 13:14
Alkaline Phosphatase 109 U/L (38-126) 03/08/25 13:14
Most recent labs reviewed.
Micro Results:
03/10/25 09:06 Blood Culture - Preliminary
Blood/Venous No Growth in 24 hours- Final report to follow
03/10/25 08:38 Blood Culture - Preliminary
Blood/Venous No Growth in 24 hours- Final report to follow
03/10/25 07:32 Influenza Types A & B ([facility]) - Final
Nasal Swab Negative for Influenza A & B, NAAT
Negative results must be combined with clinical observations
and patient history.
Nucleic Acid Amplification test (NAAT)performed on the
[employer] platform.
Imaging:
03/10/2025 CXR (2 view): Lungs are symmetrically hyperinflated. Small bilateral pleural effusions. Mild increased opacities in the medial aspect of the lower lobes. No pneumothorax noted. Please see full dictation for additional detail.
03/06/2025 CT abdomen/pelvis with contrast: 6.5 cm lesion within the right hepatic lobe is consistent with hemangioma. Gallbladder is unremarkable. Spleen is within normal limits. No obstruction or wall thickening of the bowel. Mild colonic stool
burden. Colonic diverticulosis noted. Please see full dictation for additional detail.
--- NOTE | 2025-03-11 12:42 | W.PN.HOSP.TC ---
Today's Communication/Plan
-
EGD in am
norovirus pending
IVF for now
PPI
Assessment / Plan
Assessment / Plan
Physical Exam
General: No acute distress, appears comfortable at this time
HEENT: NormoCephalic, Moist mucous membranes, Atraumatic, [place] Conjunctivae
Respiratory: Clear to auscultation b/l no crackles/wheezes
Cardiac: S1/S2 and Regular Rhythm; No Murmur or Rub
GI: Soft, Non Distended and Normal Bowel Sounds, mild diffuse tenderness
Musculoskeletal: No Clubbing, No Cyanosis and No Edema
Skin: Warm no rashes
Neuro: AOx3 conversant coherent
Psych: Calm and Intact Judgment/Insight
64F Asthma COPD GERD Anxiety/Depression Gastroparesis hx Hiatal Hernia repair however since failed, follows Dr Rasmussen, here with intractable nausea/vomiting suspect gastroparesis flare recently here for the same 03/06-03/07, returned the next day
following discharge.
#intractable nausea and vomiting likely 2/2 gastroparesis
#persistent nausea and vomiting despite multiple dose Zofran
- IV Zofran, Reglan and Ativan
- Clears
- six small meals a day
-GI eval appreciated considering EGD this hospitalization
-PPI BID
-on naltrexone for opiate use disorder
-Toradol prn mod severe pain
-Plan for tentative EGD in am
#Intermittent Fevers unclear Etiology
#Recent Hx tick exposure
-Tylenol prn
-no significant hypotension or lactic acidosis
-recent urinalysis unremarkable for infection
-Follow blood cultures negative so far. Influenza negative.
-received empiric unasyn for possible aspiration pna given hx vomiting, CXR noted small b/l pleural effusions possible signs of aspiration pna, however procal neg, abx subsequently discontinued monitor off.
-ID eval requested. Procal negative. Last fever on 03/09/25 at 23:52. Afebrile since.
-trend Temp WBC
#Dilutional Hgb 2/2 IVF
#asthma
#COPD
- continue albuterol
#GERD
- IV Protonix BID
#hypertension
- continue lisinopril
#anxiety/depression
- continue aripiprazole, buspirone, fluoxetine, mirtazapine and trazadone
Code status: full code
DVT prophylaxis: Lovenox sq
d/w with GI
Anticipated Discharge: 24 - 48 hours
Subjective/Interval History
-
Date of Service: March 11, 2025
states feeling weak
denies any loose bm
Objective Data
-
Labs:
Laboratory Results
03/11/25
06:56
WBC 7.4
Hgb 9.8 L
Hct 29.8 L
Plt Count 151
Sodium 137
Potassium 3.9
Chloride 110 H
Carbon Dioxide 18 L
BUN 22 H
Creatinine 0.9
Glucose 104 H
Calcium 8.7
Vital Signs:
Vital Signs
Temp Pulse Resp BP Pulse Ox
98.9 F 107 18 146/107 96
03/11/25 07:05 03/11/25 07:05 03/11/25 07:05 03/11/25 07:05 03/11/25 07:05
I&O
03/10/25 03/11/25 03/12/25
06:59 06:59 06:59
Intake Total 4303 / 4303 1670 / 1670 500 / 500
Balance 4303 / 4303 1670 / 1670 500 / 500
Data Reviewed
-
Total Time Spent with Patient (in minutes): 55
--- NOTE | 2025-03-11 13:27 | CM ---
Patient seen at bedside
tt from [facility]-LOC changed to inpatient
IMM explained & signed
EGD in am
PLAN: Home, no needs anticipated
to transport
[2025-03-11 15:03] VITALS: BP 140/98
--- NOTE | 2025-03-11 16:57 | PTCARENOTE ---
patient feels weak. has nausea wand upper abdomen discomfort. PRN Toradol and PRN Zofran with good relief, tolerating some clear liquids, independent to BR, vss, will continue to monitor.
[2025-03-11] MEDS: LOVENOX 40 MG SC (17:50)
[2025-03-11] MEDS: BUSPAR 15 MG PO (21:17)
[2025-03-11] MEDS: DESYREL 100 MG PO (21:18)
[2025-03-11] MEDS: NSS (PRESERVATIVE FREE) 8 ML IV (21:18)
[2025-03-11] MEDS: PEPCID 20 MG IV (21:19)
[2025-03-11] MEDS: REMERON 45 MG PO (21:20)
[2025-03-11 23:10] VITALS: BP 130/97
[2025-03-12] MEDS: ZOFRAN 4 MG IV (06:04)
[2025-03-12 06:55] VITALS: BP 148/106
[2025-03-12 07:29] LABS: Hematocrit 32.4 % (37.0-47.0); Hemoglobin 10.7 g/dL (12.0-16.0); Mean Corpuscular Hgb 29.5 pg (27.0-31.0); Mean Corpuscular Volume 89.3 fL (81.0-99.0); Mean Platelet Volume 10.7 fL (7.4-10.4); Platelet Count 167 10^3/uL (130-400); Red Blood Cell Count 3.63 10^6/uL (4.20-5.40); Red Cell Dist. Width 14.1 % (11.5-14.5)
[2025-03-12 08:45] LABS: Blood Urea Nitrogen 20 mg/dl (7-17); Calcium 8.8 mg/dl (8.4-10.2); Carbon Dioxide 16 mmol/L (22-30); Chloride 111 mmol/L (98-107); Estimated Creatinine Clearance 61 ml/min; Glucose 95 mg/dl (70-99); Magnesium 1.6 mg/dl (1.6-2.3); Phosphorus 3.2 mg/dl (2.5-4.5); Potassium 3.6 mmol/L (3.5-5.1); Sodium 139 mmol/L (135-145); eGFR > 60.00
[2025-03-12 09:47] VITALS: BP 114/86; BP_SYST 14
[2025-03-12 10:00] VITALS: BP 124/90
[2025-03-12 10:05] VITALS: BP 124/90; BP_SYST 25
[2025-03-12 10:13] VITALS: BP 123/99
--- NOTE | 2025-03-12 10:36 | CM ---
Addendum entered by Yojana Davis 03/12/25 14:17:
IMM signed yesterday & in chart
patient discharged to home today
Original Note:
Patient seen at bedside
s/p endoscopy
PLAN: Home, no needs anticipated
to transport
[2025-03-12] MEDS: ATIVAN 1 MG IV (11:50)
[2025-03-12] MEDS: NSS (PRESERVATIVE FREE) 0.5 ML IV (11:51)
--- NOTE | 2025-03-12 12:39 | W.PN.HOSP.TC ---
Addendum entered and electronically signed by Fahad Morrissey MD 03/12/25 15:21:
viral sepsis-poa
Original Note:
Today's Communication/Plan
-
home today if tolerates solids
Assessment / Plan
Assessment / Plan
Physical Exam
General: No acute distress, appears comfortable at this time
HEENT: NormoCephalic, Moist mucous membranes, Atraumatic, [place] Conjunctivae
Respiratory: Clear to auscultation b/l no crackles/wheezes
Cardiac: S1/S2 and Regular Rhythm; No Murmur or Rub
GI: Soft, Non Distended and Normal Bowel Sounds, mild diffuse tenderness
Musculoskeletal: No Clubbing, No Cyanosis and No Edema
Skin: Warm no rashes
Neuro: AOx3 conversant coherent
Psych: Calm and Intact Judgment/Insight
64F Asthma COPD GERD Anxiety/Depression Gastroparesis hx Hiatal Hernia repair however since failed, follows Dr Rasmussen, here with intractable nausea/vomiting suspect gastroparesis flare recently here for the same 03/06-03/07, returned the next day
following discharge.
#intractable nausea and vomiting likely 2/2 gastroparesis
#persistent nausea and vomiting despite multiple dose Zofran
- Antinausea meds as needed
- Advance diet to solids with six small meals a day
-GI eval appreciated considering EGD this hospitalization
-PPI BID
-on naltrexone for opiate use disorder
-Toradol prn mod severe pain
- Status post EGD with normal esophagus. Fundoplication was found. Normal stomach on direct and retroflexion view. Normal duodenum.
#Intermittent Fevers unclear Etiology likely secondary to viral
#Recent Hx tick exposure
-Tylenol prn
-no significant hypotension or lactic acidosis
-recent urinalysis unremarkable for infection
-Follow blood cultures negative so far. Influenza negative.
-received empiric unasyn for possible aspiration pna given hx vomiting, CXR noted small b/l pleural effusions possible signs of aspiration pna, however procal neg, abx subsequently discontinued monitor off.
-ID eval requested. Procal negative. Last fever on 03/09/25 at 23:52. Afebrile since.
-trend Temp WBC
#Dilutional Hgb 2/2 IVF
#asthma
#COPD
- continue albuterol
#GERD
- IV Protonix BID
#hypertension
- continue lisinopril
#anxiety/depression
- continue aripiprazole, buspirone, fluoxetine, mirtazapine and trazadone
Code status: full code
DVT prophylaxis: Lovenox sq
d/w with GI
Dispo-home today if tolerates solids
Anticipated Discharge: Today
Subjective/Interval History
-
Date of Service: March 12, 2025
Patient is awaiting to eat breakfast/lunch
Seen post EGD
Objective Data
-
Labs:
Laboratory Results
03/12/25
06:57
WBC 7.0
Hgb 10.7 L
Hct 32.4 L
Plt Count 167
Sodium 139
Potassium 3.6
Chloride 111 H
Carbon Dioxide 16 L
BUN 20 H
Creatinine 0.9
Glucose 95
Calcium 8.8
Vital Signs:
Vital Signs
Temp Pulse Resp BP Pulse Ox
99.0 F 100 19 123/99 93
03/12/25 10:05 03/12/25 10:15 03/12/25 10:15 03/12/25 10:13 03/12/25 10:15
I&O
03/11/25 03/12/25 03/13/25
06:59 06:59 06:59
Intake Total 1670 / 1670 2660 / 2660
Balance 1670 / 1670 2660 / 2660
[2025-03-12] MEDS: PROZAC 40 MG PO (13:36)
[2025-03-12] MEDS: REVIA 50 MG PO (13:37)
[2025-03-12] MEDS: VISBIOME 1 CAP PO (13:37)
[2025-03-12] MEDS: ZESTRIL 10 MG PO (13:37)
[2025-03-12] MEDS: NSS (PRESERVATIVE FREE) 10 ML IV (13:37)
[2025-03-12] MEDS: PROTONIX IV 40 MG IV (13:37)
[2025-03-12] MEDS: ABILIFY 5 MG PO (13:37)
[2025-03-12] MEDS: BUSPAR 15 MG PO (13:37)
--- NOTE | 2025-03-12 13:53 | W.DCSUMMARY ---
Discharge Summary
Discharge Data
Date of Admission: 03/10/25
Date of Discharge: 03/12/25
-
Pending Results: No
Hospital Course
64F Asthma COPD GERD Anxiety/Depression Gastroparesis hx Hiatal Hernia repair however since failed, follows Dr Rasmussen, here with intractable nausea/vomiting suspect gastroparesis flare recently here for the same 03/06-03/07, returned the next day
following discharge. Patient was restarted on IV fluid resuscitation. Patient restarted antinausea medication. Patient was seen by gastroenterology. Patient also with unexplained fever and infectious disease was consulted. Patient was monitored
off antibiotics. UA was negative. Blood cultures remain negative. Influenza was negative. Initially started on Unasyn which was discontinued. Patient fever curve down trended. Patient was afebrile for greater than 48 hours prior to discharge.
Patient continued to states of nausea and underwent endoscopy. Status post EGD with normal esophagus. Fundoplication was found. Normal stomach on direct and retroflexion view. Normal duodenum. It was deemed patient with gastroparesis flareup
secondary to viral infection. Postop EGD patient was able to tolerate diet. Recommend he continue with PPI. Recommend he continue with small meals with gastroparesis diet. Recommended to follow-up with her outpatient gastroenterology.
Discharge Plan
-
Patient Disposition: Home (Routine Discharge)
Discharge Diagnosis/Procedures: Fever likely secondary to viral infection
Gastroparesis flareup
Nausea and vomiting
Condition: Fair
Diet: Low Fat and Low Residue
Additional Diets: 6 small meals a day.
Activity: As tolerated
Driving Restrictions: As prior to admission
Referrals:
James Neal MD [Family Provider] - in less than 1 week
Ibrahima Robledo DO [Active] - None
Prescriptions:
Continued
Hizentra 10 GM/50 ML solution
10 gm SC TU
omeprazole 20 mg capsule,delayed release(DR/EC)
20 mg PO BID
aripiprazole [Abilify] 5 mg Tablet
5 mg PO DAILY
fluoxetine 40 mg capsule
40 mg PO DAILY
lisinopril 10 mg tablet
10 mg PO DAILY
buspirone 15 mg tablet
15 mg PO BID
trazodone 100 mg tablet
100 mg PO HS
naltrexone 50 mg tablet
50 mg PO DAILY
mirtazapine 15 mg tablet
45 mg PO HS
albuterol sulfate 90 mcg/actuation Hfa Aerosol Inhaler
1 puff INHALATION R Q4HPRN PRN (Reason: sob)
ondansetron 4 mg tablet,disintegrating
4 mg PO TID PRN (Reason: nausea and vomiting) 10 Days Qty: 30 0RF
docusate sodium [Colace] 100 mg Capsule
100 mg PO DAILYPRN PRN (Reason: constipation)
Discharge Orders:
Discharge Patient (As Directed); Ordered 03/12/25
Ordered By: Fahad Morrissey
Discharge Date and Time
Print Language: [place]
--- NOTE | 2025-03-12 14:53 | PN.CDI ---
CDI
- -
CDI:
Physician Documentation Request
Admit Date: 03/10/25 07:09
Dear Doctor Yuni,
Please review the following and provide your response in the progress notes.
Clinical Indicators:
PN, 03/12
#intractable nausea and vomiting likely 2/2 gastroparesis
#persistent nausea and vomiting despite multiple dose Zofran
#Intermittent Fevers
#...unclear Etiology likely secondary to viral
#Recent Hx tick exposure
Selected Entries
03/08/25
18:21 03/08/25
20:08 03/09/25
23:52
Temp 101.3 F H 100.5 F H 100.6 F H
Pulse 91 104
Based on the above and your clinical assessment, please clarify which of the following most accurately describes the status of the patient's infection:
Viral sepsis, POA, resolved
Localized Infection Only, Without Systemic Illness
- indicate the site/source, such as UTI, aspiration pneumonitis, gastroparesis, etc.
Other(please specify)
Sepsis
- Systemic manifestations of infection, with 2 or more SIRS criteria which include:
- Fever >100.9 degrees F or hypothermia < 96.8 degrees F
- Leukocytosis - WBC > 12,000 or leukopenia - WBC < 4,000 or > 10% bands
- Tachycardia > 90 beats per minute
- Tachypnea - RR > 20 breaths per minute or PaCO2 , 32mmHg
Source: Merck Manual 2013
- Indicate the known or suspected organism
- Indicate the known or suspected underlying infection, such as UTI, pneumonia or cellulitis
- Indicate if a suspected bacterial infection of unknown source
Use of terms such as suspected, likely, concern for, or probable (associated with a specific diagnosis that is being evaluated, monitored, or treated as if it exists) are acceptable and can be coded in the inpatient setting, when documented at the
time of discharge.
Thank you,
Johnna Ribeiro RN BSN CCDS
CDI Specialist
Please contact via tiger text
Please use your independent medical judgment in providing your response.
[2025-03-12 15:14] VITALS: BP 113/79
== END 2025-03-12 15:48 | disposition home or self-care (01) | DRG 872 ==
LOC: 3 WEST ACU 07:09
PROVIDERS: Internal Medicine; Nurse Practitioner; Nurse Practitioner Family; ADMITTING PHYSICIAN Hospitalist; ATTENDING PHYSICIAN Hospitalist; CONSULT PHYSICIAN Internal Medicine Infectious Disease; CONSULT PHYSICIAN Student in an Organized Health Care Education/Training Program; EMERGENCY PHYSICIAN Emergency Medicine; FAMILY PHYSICIAN Internal Medicine
PROC: 0DB68ZX Excision of Stomach, Via Natural or Artificial Opening Endoscopic, Diagnostic (ICD-10-PCS; 2025-03-12)
DX: A41.89 Other specified sepsis (principal); D80.1 Nonfamilial hypogammaglobulinemia; B97.89 Other viral agents as the cause of diseases classified elsewhere; K21.9 Gastro-esophageal reflux disease without esophagitis; F41.9 Anxiety disorder, unspecified; F32.A Depression, unspecified; K31.84 Gastroparesis; J44.89 Other specified chronic obstructive pulmonary disease; I10 Essential (primary) hypertension; M81.0 Age-related osteoporosis without current pathological fracture; D64.9 Anemia, unspecified; G43.909 Migraine, unspecified, not intractable, without status migrainosus; M40.209 Unspecified kyphosis, site unspecified; Z85.3 Personal history of malignant neoplasm of breast; Z87.891 Personal history of nicotine dependence; D18.03 Hemangioma of intra-abdominal structures; K44.9 Diaphragmatic hernia without obstruction or gangrene; E55.9 Vitamin D deficiency, unspecified; K22.70 Barrett's esophagus without dysplasia; K57.30 Diverticulosis of large intestine without perforation or abscess without bleeding; Z86.0100 Personal history of colon polyps, unspecified; Z79.899 Other long term (current) drug therapy; Z92.3 Personal history of irradiation; Z11.52 Encounter for screening for COVID-19
CPT/HCPCS: 88305; 71046; 80048; 80053; 81003; 81015; 83605; 83690; 83735; 84100; 84145; 85025; 85027; 87040; 87502; 87798; 87811; 88342; 93005; 96361; 96374; 96375; 96376; 99284

== ENCOUNTER → 2025-08-29 11:26 | Outpatient (REF) | payer OTHER, SELFPAY | LOC: WDC 11:26 | PROVIDERS: ATTENDING PHYSICIAN Internal Medicine | DX: Z12.31 Encounter for screening mammogram for malignant neoplasm of breast (principal); M81.0 Age-related osteoporosis without current pathological fracture | CPT/HCPCS: 77063; 77067; 77080 ==